=== PATIENT | male | born 1950 | race Two or more races ===

== ENCOUNTER 2020-05-14 11:05 | Outpatient (RCR) | payer MEDICARE, SELFPAY ==
[2020-05-14 11:17] VITALS: BP 151/64; PULSE 71; RESP 16
== END 2020-07-03 10:50 | disposition other institution (70) ==
LOC: HO.PT 11:05
PROVIDERS: PCP Internal Medicine Geriatric Medicine; Visit Provider Internal Medicine Geriatric Medicine
DX: H81.399 Other peripheral vertigo, unspecified ear (principal)
CPT/HCPCS: 95992; 97112; 97162

== ENCOUNTER 2020-08-27 08:33 | Outpatient (REF) | payer MEDICARE, SELFPAY ==
--- NOTE | 2020-08-27 09:25 | XR_ITS ---
EXAMINATION: XR KNEE, LEFT CLINICAL INFORMATION: Pain COMPARISON: Previous x-ray most recent November 2016 TECHNIQUE: 3 views of the left knee. AP view includes the right knee FINDINGS: Left: There is varus angulation at the knee joint. No fracture or dislocation is seen. There is arthritis at the patellofemoral and patellofemoral joints with joint space narrowing and osteophyte formation. There is a small joint effusion. There is a right knee replacement. There is cortical thickening of the medial tibial metaphysis questionable for changes from old trauma. This is unchanged from previous right knee x-ray November 2016. XR/XR knee LT 2V IMPRESSION: Varus angulation and degenerative changes
== END 2020-08-27 08:34 | disposition home or self-care (01) ==
LOC: HO.HOSX 08:33
PROVIDERS: Visit Provider Orthopaedic Surgery
DX: Z01.812 Encounter for preprocedural laboratory examination (principal); M25.562 Pain in left knee; M17.12 Unilateral primary osteoarthritis, left knee; E11.9 Type 2 diabetes mellitus without complications
CPT/HCPCS: 73560; 99202

== ENCOUNTER 2020-08-27 10:44 | Outpatient (REF) | payer MEDICARE, SELFPAY ==
[2020-08-27 15:35] LABS: Estimated Average Glucose 180 mg/dL; Hemoglobin A1c % 7.9 %
== END 2020-08-27 10:45 | disposition home or self-care (01) ==
LOC: HO.10HDL 10:44
PROVIDERS: Visit Provider Orthopaedic Surgery
DX: Z01.812 Encounter for preprocedural laboratory examination (principal)
CPT/HCPCS: 36415; 83036

== ENCOUNTER 2021-12-05 15:24 | Outpatient (REF) | payer MEDICARE, SELFPAY ==
--- NOTE | ~2021-12-05 | MR_ITS ---
MR BRAIN WITHOUT AND WITH CONTRAST CLINICAL INFORMATION: Hearing loss left ear. COMPARISON: None available. TECHNIQUE: Multiplanar, multisequence MRI of the brain was obtained before and after the intravenous administration of 7.5 mL of Gadavist. FINDINGS: The inner ear structures including the cochlea, vestibules, and semicircular canals exhibit preserved CSF signal intensity with no pathologic enhancement. The vestibular aqueducts are not enlarged. Cranial nerves VII and VIII complexes are normal in morphology. No enhancing CP angle/retrocochlear lesion. There is no pathologic intracranial enhancement. There is global cerebral volume loss, there is moderate chronic microangiopathy, and there is chronic encephalomalacia and gliosis within the inferolateral right frontal lobe. No acute infarct on diffusion-weighted imaging. No intracranial hemorrhage on the gradient series. No hydrocephalus, extra-axial surface collection, or herniation. The midline intracranial structures are normal. Cerebellar tonsils are normally positioned. Craniocervical junction is normal. Osseous marrow signal intensity remains homogeneous. No significant soft tissue abnormality is appreciated. There are retention cysts within the maxillary sinuses bilaterally. MR/MR head/brain wo/w con IMPRESSION: - No retrocochlear pathology. - There is global cerebral volume loss, there is moderate chronic microangiopathy, and there is chronic encephalomalacia and gliosis within the inferolateral right frontal lobe.
[2021-12-05 13:11] LABS: Blood Urea Nitrogen 16 mg/dL (9-16); Estimated Glomerular Filt Rate > 60
== END 2021-12-05 15:25 | disposition home or self-care (01) ==
LOC: HO.MRI 15:24
PROVIDERS: Visit Provider Internal Medicine Geriatric Medicine
DX: D33.3 Benign neoplasm of cranial nerves (principal); R42 Dizziness and giddiness
CPT/HCPCS: 36415; 70553; 82565; 84520; A9585

== ENCOUNTER 2022-04-11 09:04 | Outpatient (REF) | payer OTHER, SELFPAY ==
--- NOTE | ~2022-04-11 | XR_ITS ---
EXAMINATION: XR WRIST, RIGHT CLINICAL INFORMATION: Pain without injury. COMPARISON: Right hand radiographs dated 03/08/2015. TECHNIQUE: PA, lateral, and oblique views of the right wrist. FINDINGS: Bony alignment and mineralization are normal. There is a slight ulnar positive variance. The proximal and distal carpal rows are intact. There is narrowing of the radiocarpal joint. There is mild chondrocalcinosis of the triangular ligament. The soft tissue planes are unremarkable, without gas or foreign body. XR/XR wrist RT min 3V IMPRESSION: 1. There is degenerative change of the radiocarpal joint. 2. There is mild chondrocalcinosis of the triangular ligament, raising the possibility of CPPD.
== END 2022-04-11 09:05 | disposition home or self-care (01) ==
LOC: HO.XRAY 09:04
PROVIDERS: PCP Internal Medicine Geriatric Medicine; Visit Provider Emergency Medicine
DX: M25.531 Pain in right wrist (principal)
CPT/HCPCS: 73110

== ENCOUNTER 2022-11-14 09:30 | Outpatient (REF) | payer OTHER, SELFPAY ==
--- NOTE | ~2022-11-14 | XR_ITS ---
EXAMINATION: XR CHEST XR RIBS, LEFT CLINICAL INFORMATION: Chest pain COMPARISON: Chest radiographs 09/11/2017, 03/27/2011 TECHNIQUE: Chest is imaged in PA and lateral views. Left ribs are imaged in 3 views. There are a total of 5 views. FINDINGS: No visible left rib fracture or rib destructive process. The lungs are clear. There is no pneumothorax, airspace consolidation, groundglass opacity, pleural reaction. The costophrenic sulci are well-defined. No effusion. The cardiopericardial silhouette is upper limits of normal, similar to previous exam. The hilar and mediastinal contours and remainder of bony structures show no acute abnormality. XR/XR ribs LT 2V IMPRESSION: - No visible left rib fracture or rib destructive process. - Lungs clear. No pneumothorax, infiltrate, or effusion.
--- NOTE | ~2022-11-14 | XR_ITS ---
EXAMINATION: XR CHEST XR RIBS, LEFT CLINICAL INFORMATION: Chest pain COMPARISON: Chest radiographs 09/11/2017, 03/27/2011 TECHNIQUE: Chest is imaged in PA and lateral views. Left ribs are imaged in 3 views. There are a total of 5 views. FINDINGS: No visible left rib fracture or rib destructive process. The lungs are clear. There is no pneumothorax, airspace consolidation, groundglass opacity, pleural reaction. The costophrenic sulci are well-defined. No effusion. The cardiopericardial silhouette is upper limits of normal, similar to previous exam. The hilar and mediastinal contours and remainder of bony structures show no acute abnormality. XR/XR chest 2V IMPRESSION: - No visible left rib fracture or rib destructive process. - Lungs clear. No pneumothorax, infiltrate, or effusion.
== END 2022-11-14 09:31 | disposition home or self-care (01) ==
LOC: HO.XRAY 09:30
PROVIDERS: PCP Internal Medicine Geriatric Medicine; Visit Provider Emergency Medicine
DX: R07.9 Chest pain, unspecified (principal)
CPT/HCPCS: 71046; 71100

== ENCOUNTER 2023-04-10 14:00 | Outpatient (AMB) | payer OTHER, SELFPAY ==
[2023-04-10 14:02] VITALS: BP 126/68; PULSE 90; O2SAT 97; BMI 26.0
--- NOTE | 2023-04-10 14:02 | A.OFFPC_ITS ---
Vital Signs 04/10/23 14:02 Height 5 ft 5 in Weight 156 lb BMI 26.0 BP 126/68 Blood Pressure Location Lt brachial Position Sitting Pulse 90 Pulse Source Pulse Oximeter Temp Source Skin Pulse Oximetry (%) 97 Oxygen Delivery Method Room Air Intake Visit Reasons: New patient-Diabetes Public Events Facilities Rental Manager Required: Yes Public Events Facilities Rental Manager Language: Turkish Allergies No Known Allergies [No Known Allergies*] Allergy (Verified 04/10/23 15:21) Medication List - Last Reconciled 04/10/23 by JENNIFER Pastrana aspirin 81 mg PO BEDTIME blood pressure test kit-large As directed bupropion HCl 150 mg PO QAM calcium carbonate-vitamin D3 600 mg-5 mcg (200 unit) 0 tabs PO citalopram 20 mg PO QAM empagliflozin (Jardiance) 25 mg PO QAM insulin glargine (Lantus Solostar U-100 Insulin) 10 units subcut BEDTIME lancets As directed lisinopril 10 mg PO QAM metformin 1,000 mg PO BID pravastatin 40 mg PO BEDTIME tamsulosin 0.4 mg PO QAM Tobacco use date assessed: 04/10/23 Last assessed Fall Risk: 04/10/23 Dental Screening Dental Screen Date: 04/10/23 Did you have a dental visit in the last 12 months?: No Did you have a dental problem in the last 6 months where you did not have access to dental care?: No HPI New patient-Diabetes HPI Details Patient is a 72-year-old male who presents today to establish care. Previous PCP [facility]. Medical history significant for hypertension, diabetes, anxiety, depression, hyperlipidemia, arthritis of left knee, and decreased hearing of both ears - patient would like referral to ENT provider. Patient also reports penile rash and he requested refill on clotrimazole-betamethasone cream which helps him. In addition, patient reports shortness of breath on exertion, no chest pain. Patient also reports that he has been snoring at night and stops breathing when he sleeps. Patient quit smoking 51 years ago. Patient is accompanied by his . Patient is a Turkish -speaking and Luis Armando was helping with interpretation. [facility] Medical History (Updated 04/29/23 @ 08:52 by JENNIFER Pastrana) History of nicotine dependence Diabetes Hypertension Surgical History History of arthroplasty of right knee Family History Mother Brain cancer Father Diabetes Social History Alcohol intake: former Patient Tobacco Use Status: Never used Tobacco Current occupational status: unemployed Current occupation: right handed Cognitive needs: No Hearing needs: No Vision needs: No Questionnaire PHQ-9 Over the last 2 weeks, how often have you been bothered by any of the following problems? 1. Little interest or pleasure in doing things: not at all 2. Feeling down, depressed, or hopeless: not at all 3. Trouble falling or staying asleep, or sleeping too much: not at all 4. Feeling tired or having little energy: not at all 5. Poor appetite or overeating: not at all 6. Feeling bad about yourself - or that you are a failure or have let yourself or your family down: not at all 7. Trouble concentrating on things, such as reading the newspaper or watching television: not at all 8. Moving or speaking so slowly that other people could have noticed. Or the opposite - being so fidgety or restless that you have been moving around a lot more than usual: not at all 9. Thoughts that you would be better off or of hurting yourself in some way: not at all Total score: 0 Depression Screening Interpretation: Negative [id number] - PHQ-9 Billing: Yes Source: Developed by Drs. Raul Sanderson, Katerina Cazares, Ok Morris and colleagues, with an educational marleni from [employer]. Thrive Questionnaire Date Thrive assessed: 04/10/23 I am a: Patient What is your living situation today?: I have a steady place to live Within the past 12 months, did the food you bought not last and you didn't have the money to get more?: Never true Within the past 12 months, did you worry whether your food would run out before you got money to buy more?: Never true Currently or been in a relationship where the following occur: no concerns reported AUDIT C Alcohol Use Questionnaire (AUDIT-C) 1. How often do you have a drink containing alcohol?: Never 2. How many drinks containing alcohol do you have on a typical day when you are drinking?: 1 or 2 (0) 3. How often do you have six or more drinks on one occasion?: Never Total Score: 0 Score Reviewed/Action Taken: No ZARI-7 AMB Questionnaire ZARI-7 Date ZARI - 7 assessed: 04/10/23 Feeling nervous, anxious, or on edge: 0 = Not at all Not being able to stop or control worryin = Not at all Worrying too much about different things: 0 = Not at all Trouble relaxin = Not at all Being so restless that it is hard to sit still: 0 = Not at all Becoming easily annoyed or irritable: 0 = Not at all Feeling afraid as if something awful might happen: 0 = Not at all Total ZARI-7 score (0-4 normal; 5-9 mild; 10-14 moderate; 15-21 severe): 0 Source: Developed by Drs. Raul Sanderson, Katerina Cazares, Ok Morris and colleagues, with an educational marleni from [employer]. ZARI-7 Assessment Billing ZARI-7 Assessment Tool: ZARI-7 Assessment 64431 Review of Systems Const Denies body aches, Denies chills, Denies fever(s), Denies headache(s) and Reports snoring Eyes Denies change in vision ENT Denies dizziness, Denies otalgia, Denies headache(s), Denies nasal discharge, Denies sinus pain and Denies sore throat Card Denies chest pain, Denies edema, Denies lightheadedness, Denies dyspnea and Reports dyspnea on exertion Resp Denies cough, Denies dyspnea, Reports dyspnea on exertion, Reports snoring and Denies wheezing GI Denies constipation, Denies diarrhea, Denies nausea and Denies vomiting Denies dysuria Musc Denies myalgias Skin/Breast Reports rash Neuro Denies dizziness and Denies headache(s) Aller/Immun Denies wheezing Physical exam (Primary Care) Vital Signs: Last Vital Signs Pulse 90 04/10/23 14:02 BP 126/68 04/10/23 14:02 Pulse Ox 97 04/10/23 14:02 Oxygen Delivery Method Room Air 04/10/23 14:02 BMI result Body Mass Index 26.0 Tobacco/Smoking Status: Tobacco use Status Tobacco use date assessed 04/10/23 04/10/23 14:03 Patient Tobacco Use Status Never used Tobacco 04/10/23 15:11 PHQ-9: PHQ-9 Score PHQ-9: Total score 0 04/10/23 15:22 Depression Screening Interpretation: Negative Thrive Assessment: Date of Thrive Assessment Date Thrive assessed 04/10/23 04/10/23 14:03 Currently or been in a relationship where the following occur: no concerns reported Const General: cooperative and no acute distress Orientation/consciousness: patient oriented x3 HENMT Head: Yes normocephalic and Yes atraumatic Ears: TM's normal bilaterally Face and sinus: Yes sinuses nontender Mouth: oropharynx normal and moist mucous membranes Throat: Yes posterior oropharynx normal Eyes General: appearance normal, both eyes and all related structures Pupils: Equal, round and reactive pupils present EOM: EOMs intact bilaterally Neck Neck: Yes normal visual inspection, Yes full ROM and Yes no lymphadenopathy Thyroid: Thyroid normal Resp Effort & Inspection: normal respiratory effort and able to speak in complete sentences Auscultation: clear to auscultation bilaterally, no crackles, no rales, no rhonchi and no wheezes Cardio Rate: regular rate Rhythm: regular rhythm Heart sounds: S1 normal heart sound present, S2 normal heart sound present and no murmurs GI Palpation (GI): Soft to palpation, not firm, nontender, no guarding, not rigid and no hepatosplenomegaly Auscultation: normal bowel sounds General: No CVA tenderness Back/Spine/Pelvis Back: No CVA tenderness 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 Penile glans with mild erythema, no signs of infection noted Neuro General: patient oriented x3 Cranial nerves: Yes Equal, round and reactive pupils present Gait exam (Neuro): Normal gait present Extrem General: Yes full ROM and No edema Results AMB Hemoglobin A1c AMB Hemoglobin A1c 7.0 % Last Edit by MEHDI Veloz on 04/10/23 15:12 Results Reviewed Results Reviewed: Laboratory Last Values Hgb A1c (Clinic) 7.0 % (4.0-6.0) H 04/10/23 14:01 Assessment and Plan Assessment & Plan (1) Decreased hearing of both ears: Code(s): H91.93 - Unspecified hearing loss, bilateral Plan: ENT referral (2) Rash: Code(s): R21 - Rash and other nonspecific skin eruption Plan: Suspect balanitis Refill sent on clotrimazole-betamethasone cream b.i.d. p.r.n. for 2 weeks (3) Shortness of breath on exertion: Code(s): R06.02 - Shortness of breath Plan: Start albuterol inhaler p.r.n. Will order pulmonary function test (4) Apneic spell: Code(s): R06.81 - Apnea, not elsewhere classified Plan: Sleep study ordered to rule out sleep apnea (5) Screening for prostate cancer: Code(s): Z12.5 - Encounter for screening for malignant neoplasm of prostate (6) Hyperlipidemia: Code(s): E78.5 - Hyperlipidemia, unspecified Plan: Continue pravastatin Low-cholesterol diet (7) Depression: Code(s): F32.A - Depression, unspecified Qualifiers: Depression Type: other depression Qualified Code(s): F32.89 - Other specified depressive episodes Plan: Continue bupropion and citalopram (8) Anxiety: Code(s): F41.9 - Anxiety disorder, unspecified Plan: Continue bupropion and citalopram (9) Diabetes: Code(s): E11.9 - Type 2 diabetes mellitus without complications Plan: A1c 7.0 today, goal less than 7 Continue Jardiance, Lantus, metformin Low-carbohydrate diet Patient has an upcoming appointment for diabetic eye exam with Dr. Schofield (10) Hypertension: Code(s): I10 - Essential (primary) hypertension Plan: Goal BP equal less than 140/90 Continue lisinopril Low-sodium diet (11) Encounter to establish care: Code(s): Z76.89 - Persons encountering health services in other specified circumstances Orders: Orders Vitamin D 25-OH Total 04/10/23 E11.9 - Type 2 diabetes mellitus without complications Vitamin B12 and Folate 04/10/23 E11.9 - Type 2 diabetes mellitus without complications Comprehensive [place]. Panel Fast 04/10/23 E11.9 - Type 2 diabetes mellitus without complications Complete Blood Count Auto Diff 04/10/23 E11.9 - Type 2 diabetes mellitus without complications Prostate Specific Antigen 04/10/23 Z12.5 - Encounter for screening for malignant neoplasm of prostate RT home sleep study 04/10/23 R06.81 - Apnea, not elsewhere classified PFT pulmonary function test 04/10/23 R06.02 - Shortness of breath AMB Hemoglobin A1c 04/10/23 Z13.9 - Encounter for screening, unspecified TSH reflex Free T4 04/10/23 E11.9 - Type 2 diabetes mellitus without complications Lipid Panel 04/10/23 E78.5 - Hyperlipidemia, unspecified Microalbumin, Random (w Creat) 04/10/23 E11.9 - Type 2 diabetes mellitus without complications Referrals Ear/Nose/Throat Referral H91.93 - Unspecified hearing loss, bilateral Medications: New albuterol sulfate 90 mcg/actuation (Ventolin HFA) 2 puffs inhalation Q4-6H PRN 8.5 grams 0RF shortness of breath or wheezing R06.02 - Shortness of breath clotrimazole-betamethasone 1-0.05 % 1 appl topical BID PRN 45 grams 0RF rash 2 weeks R21 - Rash and other nonspecific skin eruption Coding Level of Care Code New Pt Level 4 (37396) Diagnoses Decreased hearing of both ears H91.93 Rash R21 Shortness of breath on exertion R06.02 Apneic spell R06.81 Screening for prostate cancer Z12.5 Hyperlipidemia E78.5 Other depression F32.89 Depression Type: other depression Anxiety F41.9 Diabetes E11.9 Hypertension I10 Encounter to establish care Z76.89 Additional Codes ZARI-7 Assessment Billing - ZARI-7 Assessment Tool: ZARI-7 Assessment [id number] ([id number])
== END 2023-04-10 15:57 | disposition home or self-care (01) ==
PROVIDERS: PCP Internal Medicine; Visit Provider Nurse Practitioner Family
DX: E11.9 Type 2 diabetes mellitus without complications (principal); H91.93 Unspecified hearing loss, bilateral; R21 Rash and other nonspecific skin eruption; R06.02 Shortness of breath; R06.81 Apnea, not elsewhere classified; E78.5 Hyperlipidemia, unspecified; F32.89 Other specified depressive episodes; F41.9 Anxiety disorder, unspecified; I10 Essential (primary) hypertension; Z76.89 Persons encountering health services in other specified circumstances
CPT/HCPCS: 83036; 99204

== ENCOUNTER 2023-06-01 11:42 | Outpatient (AMB) | payer OTHER, SELFPAY ==
[2023-06-01 12:54] VITALS: BP 90/62; PULSE 68; BMI 26.7
--- NOTE | 2023-06-01 12:54 | MHC.OFFVIS ---
Intake Vital Signs 06/01/23 12:54 Height 5 ft 5 in Weight 160 lb 7.944 oz BMI 26.7 BP 90/62 Blood Pressure Location Lt brachial Position Sitting Pulse 68 Intake Visit Reasons: NPV/Chest Pain/[facility] Intake Note: NPV w/ EKG Activities Concierge Required: Yes Activities Concierge Language: Passenger Screener Name: Azael [id number] Accompanied by: Spouse Allergies No Known Allergies [No Known Allergies*] Allergy (Verified 06/01/23 12:56) Medication List - Last Reconciled 06/01/23 by Izaiah Dela Cruz MD albuterol sulfate 90 mcg/actuation (Ventolin HFA) 2 puffs inhalation Q4-6H PRN aspirin 81 mg PO BEDTIME blood pressure test kit-large As directed bupropion HCl 150 mg PO QAM calcium carbonate-vitamin D3 600 mg-5 mcg (200 unit) 0 tabs PO citalopram 20 mg PO QAM clotrimazole-betamethasone 1-0.05 % 1 appl topical BID PRN 2 weeks empagliflozin (Jardiance) 25 mg PO QAM insulin glargine (Lantus Solostar U-100 Insulin) 10 units subcut BEDTIME lancets As directed lisinopril 10 mg PO QAM metformin 1,000 mg PO BID pravastatin 40 mg PO BEDTIME tamsulosin 0.4 mg PO QAM HPI HPI Comments History of Present Illness Details Patient has been referred for evaluation of chest pain. Evaluated patient using supervisor blast furnace auxiliaries. [facility] over to [place] [facility]. His origin PCP had sent a referral for chest pain. When I questioned the patient however, he states he has got absolutely no chest pain. Repeatedly asked him using supervisor blast furnace auxiliaries but he still denies any chest pain or similar symptoms. He is not sure why he got referred. [facility] Medical History (Updated 06/01/23 @ 13:22 by Izaiah Dela Cruz MD) History of nicotine dependence Diabetes Hypertension Surgical History History of arthroplasty of right knee Family History Mother Brain cancer Father Diabetes Social History Alcohol intake: former Patient Tobacco Use Status: Never used Tobacco Current occupational status: unemployed Current occupation: right handed Cognitive needs: No Hearing needs: No Vision needs: No Review of Systems Const Denies weakness Eyes Denies loss of vision ENT Denies dizziness Card Denies chest pain, Denies chest pain with activity, Denies syncope, Denies rapid heart rate, Denies pedal edema, Denies edema, Denies leg edema, Denies lightheadedness, Denies palpitations, Denies dyspnea, Denies dyspnea on exertion and Denies orthopnea Resp Denies cough, Denies dyspnea, Denies dyspnea on exertion and Denies wheezing GI Denies hematochezia and Denies change in stool character Denies hematuria, Denies dysuria and Denies urinary frequency Musc Denies abnormal gait, Denies muscle cramps, Denies muscle weakness, Denies numbness, Denies radiating pain into limb and Denies tingling Skin/Breast Denies nail changes and Denies rash Neuro Denies Abnormal speech present, Denies abnormal gait, Denies dizziness, Denies syncope, Denies loss of vision, Denies memory loss, Denies numbness, Denies tingling and Denies weakness Psych Denies depression and Denies memory loss Endo Denies palpitations Aller/Immun Denies wheezing Physical Exam Vital Signs: Last Vital Signs Pulse 68 06/01/23 12:54 BP 90/62 06/01/23 12:54 BMI result Body Mass Index 26.7 Const General: comfortable and no acute distress Orientation/consciousness: patient oriented x3 HEENT Other: Unremarkable Head: Yes normal to inspection Neck Neck: Yes normal visual inspection Chest Chest palpation & inspection: normal inspection of the chest Resp Auscultation: clear to auscultation bilaterally Cardio Palpation: normal PMI Heart sounds: S1 normal heart sound present, S2 normal heart sound present, no gallops, no murmurs and no rubs GI Palpation (GI): Soft to palpation Back/Spine/Pelvis Other: unremarkable Skin General skin exam: no rashes or lesions noted Neuro General: patient oriented x3 Speech: No Abnormal speech present Extrem General: Yes normal to inspection Psych Mental Status: mental status grossly normal Office Procedures EKG Details: EKG with sinus rhythm at 68/Min; no significant ST-T changes and otherwise [place]remarkable[place] [id number], Complete Assessment & Plan Assessment & Plan (1) Precordial chest pain: Code(s): R07.2 - Precordial pain Plan Patient referred for evaluation of chest pain but on repeated questioning, absolutely denies this. Clinical exam/baseline EKG unremarkable. If any such clinical symptom in the future, then proceed with stress testing. Otherwise, appropriate risk factor modification of diabetes and hypertension. Discussed with significant other as well. Coding Level of Care Code New Pt Level 3 (91646) Diagnoses Precordial chest pain R07.2 CPT Codes EKG - CPT: 95624-[id number], Complete ([id number])
--- NOTE | 2023-07-03 08:34 | AM.OFFVISNUR ---
Intake Vital Signs 06/01/23 12:54 Height 5 ft 5 in Weight 160 lb 7.944 oz BMI 26.7 BP 90/62 Blood Pressure Location Lt brachial Position Sitting Pulse 68 Intake Visit Reasons: NPV/Chest Pain/[facility] Allergies No Known Allergies [No Known Allergies*] Allergy (Verified 06/01/23 12:56) Medication List - Last Reconciled 06/01/23 by Izaiah Dela Cruz MD albuterol sulfate 90 mcg/actuation (Ventolin HFA) 2 puffs inhalation Q4-6H PRN aspirin 81 mg PO BEDTIME blood pressure test kit-large As directed bupropion HCl 150 mg PO QAM calcium carbonate-vitamin D3 600 mg-5 mcg (200 unit) 0 tabs PO citalopram 20 mg PO QAM clotrimazole-betamethasone 1-0.05 % 1 appl topical BID PRN 2 weeks empagliflozin (Jardiance) 25 mg PO QAM insulin glargine (Lantus Solostar U-100 Insulin) 10 units subcut BEDTIME lancets As directed lisinopril 10 mg PO QAM metformin 1,000 mg PO BID pravastatin 40 mg PO BEDTIME tamsulosin 0.4 mg PO QAM Nursing Note spoke to Trish on 07/01. Trish reports that pt isn't able to read, write and is having difficulty understanding how to take his medications. reports that the instructions say 10 units but pt has been giving himself 20-30 units daily. Trish reports pt seems a little confused lately which is a new symptom. reports pt needs a lot of assistance due to pt's intellectual capacity. Trish is looking for VNA services for this pt for diabetes education and medication education. Office Procedures EKG Details: EKG with sinus rhythm at 68/Min; no significant ST-T changes and otherwise unremarkable[place] [id number], Complete Coding Diagnoses Precordial chest pain R07.2 CPT Codes EKG - CPT: 76973-[id number], Complete ([id number]) Assessment & Plan Assessment & Plan (1) Precordial chest pain: Code(s): R07.2 - Precordial pain Category: Medical
== END 2023-06-01 13:17 | disposition home or self-care (01) ==
PROVIDERS: PCP Internal Medicine; Visit Provider Internal Medicine
DX: R07.2 Precordial pain (principal)
CPT/HCPCS: 93010; 99203

== ENCOUNTER → 2023-06-01 11:42 | Outpatient (BNVA) | payer OTHER, SELFPAY | PROVIDERS: PCP Internal Medicine; Visit Provider Internal Medicine | DX: R07.2 Precordial pain (principal) | CPT/HCPCS: 93005; 99202 ==

== ENCOUNTER 2023-06-30 10:58 | Outpatient (REF) | payer OTHER, SELFPAY | END 2023-06-30 10:59 | disposition home or self-care (01) | LOC: HO.RESP 10:58 | PROVIDERS: PCP Nurse Practitioner Family; Visit Provider Nurse Practitioner Family | DX: Z13.89 Encounter for screening for other disorder (principal) ==

== ENCOUNTER 2023-09-16 15:40 | Outpatient (REF) | payer OTHER, SELFPAY | END 2023-09-16 15:41 | disposition home or self-care (01) | LOC: HO.SH 15:40 | PROVIDERS: Visit Provider Internal Medicine Geriatric Medicine | DX: Z01.118 Encounter for examination of ears and hearing with other abnormal findings (principal); H90.3 Sensorineural hearing loss, bilateral | CPT/HCPCS: 92553; 92555; 92567 ==

== ENCOUNTER 2023-11-11 08:04 | Outpatient (REF) | payer OTHER, SELFPAY ==
[2023-11-11 11:36] LABS: MANUAL DIFF FLAG NO
[2023-11-11 11:45] LABS: Basophils Absolute Auto 0.1 X10*3/uL (0.0-0.2); Basophils Percent Auto 0.8 % (0-2); Eosinophils Absolute Auto 1.1 X10*3/uL (0.0-0.4); Eosinophils Percent Auto 15.8 % (0-4); Hematocrit 45.5 % (42.0-52.0); Hemoglobin 14.8 g/dl (14.0-18.0); Imm Gran Abs Auto 0.01 X10*3/uL (0.00-0.03); Imm Gran Pct Auto 0.1 % (0.0-0.4); Lymphocytes Absolute Auto 1.6 X10*3/uL (1.2-4.9); Lymphocytes Percent Auto 21.8 % (20-40); Mean Corpuscular HGB Conc 32.5 g/dl (31.0-36.0); Mean Corpuscular Volume 92.3 fL (80.0-98.0); Mean Platelet Volume 10.8 fL (9.4-12.4); Monocytes Absolute Auto 0.5 X10*3/uL (0.1-1.2); Monocytes Percent Auto 6.9 % (2-11); Neutrophils Absolute Auto 3.9 x10*3/uL (2.0-8.3); Neutrophils Percent Auto 54.6 % (45-73); Platelet Count 268 X10*3/uL (160-400); Red Blood Count 4.93 X10*6/uL (4.60-5.80); Red Cell Distribution Width 14.8 % (11.0-16.0); White Blood Count 7.2 X10*3/uL (4.8-10.8)
[2023-11-11 12:13] LABS: Alanine Aminotransferase 10 U/L (0-40); Albumin Level 4.3 g/dL (3.5-5.0); Alkaline Phosphatase 81 U/L (39-117); Anion Gap 11 (12-20); Aspartate Amino Transferase 14 U/L (5-37); Bilirubin Total 0.3 mg/dL (0.0-1.0); Blood Urea Nitrogen 16 mg/dL (9-16); Calcium 9.2 mg/dL (8.4-10.2); Carbon Dioxide 27 mmol/L (22-29); Chloride 105 mmol/L (96-108); Cholesterol 112 mg/dL (<200); Estimated Glomerular Filt Rate > 60; Glucose Fasting 148 mg/dL (60-99); HDL Cholesterol 37 mg/dL (>40); LDL Cholesterol Calculated 58 mg/dL (<100); Potassium 4.2 mmol/L (3.3-5.1); Sodium 139 mmol/L (135-145); Total Protein 7.1 g/dL (6.5-8.0); Triglycerides 87 mg/dL (<150)
[2023-11-11 12:15] LABS: TSH reflex Free T4 1.53 uIU/mL (0.32-4.0); Vitamin D 25-OH Total 56.2 ng/mL (>30)
[2023-11-11 12:25] LABS: Creatinine Urine 75.91 mg/dL
[2023-11-11 12:31] LABS: Folate 12.5 ng/mL (> or = 4.0); Prostate Specific Antigen 1.18 ng/mL (<0.05-4.0)
[2023-11-11 15:27] LABS: Vitamin B12 235 pg/mL (200-900)
== END 2023-11-11 08:05 | disposition home or self-care (01) ==
LOC: HO.HHCL 08:04
PROVIDERS: Visit Provider Nurse Practitioner Family
DX: Z12.5 Encounter for screening for malignant neoplasm of prostate (principal); E11.9 Type 2 diabetes mellitus without complications; E78.5 Hyperlipidemia, unspecified
CPT/HCPCS: 36415; 80053; 80061; 82043; 82306; 82570; 82607; 82746; 84153; 84443; 85025

== ENCOUNTER 2023-12-14 09:14 | Outpatient (REF) | payer OTHER, SELFPAY ==
--- NOTE | ~2023-12-14 | FL_ITS ---
EXAMINATION: XR FLUOROSCOPY UPPER GI WITH AIR CLINICAL INFORMATION: Dysphagia COMPARISON: None TECHNIQUE: Fluoroscopic air contrast upper GI examination was performed utilizing standard techniques with thin and thick barium and effervescent granules. Numerous spot images were obtained. FINDINGS: Lateral cine images of the oropharynx and hypopharynx demonstrate normal swallow mechanism with normal epiglottic inversion and soft palate elevation. No tracheal penetration, glottic or subglottic aspiration identified. No nasopharyngeal reflux present. Hypopharyngeal structures appear normal without evidence of mass or diverticulum. There is mild cricopharyngeal achalasia present. Dual and single contrast images of the esophagus demonstrate normal caliber and contour. There is a mild granular appearance to the mid and distal esophageal mucosa, which could indicate mild erosive esophagitis. No evidence of stricture, mass, or large ulcerations identified. There is to and fro motion of the barium column with nonpropulsive tertiary contractions noted throughout the esophagus. A small type I hiatal hernia is present. Significant gastroesophageal reflux is seen up to thoracic inlet. Dual contrast and single contrast images of the stomach demonstrated a normal contour. The gastric rugal folds have a mildly thickened appearance. No masses or ulcerations are seen. Contrast freely passed into the gastric antrum and duodenal bulb without delay. Single and air-contrast images of the duodenal bulb demonstrate no abnormality. The duodenal sweep has a normal appearance, course, and mucosal fold appearance. The imaged proximal jejunum has a normal fold pattern and caliber. FLUOROSCOPY TIME: 3 minutes 44 seconds Number of Spot Images: 7 Number of Cine: 15 DOSE AREA PRODUCT: 2500 uGy-m2 (microgray-meter squared) FL/FL barium swallow IMPRESSION: 1. Mild cricopharyngeal achalasia. 2. Esophageal dysmotility. Possible mild erosive esophagitis. 3. Small type I hiatal hernia. 4. Severe gastroesophageal reflux. 5. Mildly thickened gastric rugal folds that likely suggest gastritis. This procedure was performed by Deandre Zuniga PA-C, and supervised by Dr. Zabala
== END 2023-12-14 09:15 | disposition home or self-care (01) ==
LOC: HO.XRAY 09:14
PROVIDERS: PCP Internal Medicine; Visit Provider Student in an Organized Health Care Education/Training Program
DX: R13.19 Other dysphagia (principal)
CPT/HCPCS: 74220

== ENCOUNTER → 2023-12-14 09:18 | Outpatient (BNV) | payer OTHER, SELFPAY | PROVIDERS: PCP Internal Medicine; Visit Provider Physician Assistant Surgical | DX: R13.10 Dysphagia, unspecified (principal) | CPT/HCPCS: 74246 ==

== ENCOUNTER 2024-02-23 11:54 | Emergency (ER) | payer OTHER, SELFPAY ==
--- NOTE | ~2024-02-23 | XR_ITS ---
EXAMINATION: XR LUMBOSACRAL SPINE CLINICAL INFORMATION: Lower back pain COMPARISON: None available. TECHNIQUE: Three views of the lumbosacral spine. FINDINGS: The visualized lumbar vertebrae are intact with normal alignment. Bilateral 12th ribs are rudimentary. There is sacralization of L5, with associated loss of L5-S1 disc space. Intervertebral disc spaces are otherwise normal. XR/XR lumbar spine 2-3V IMPRESSION: 1. Rudimentary 12th ribs and sacralization of L5. 2. No fracture or dislocation of lumbar spine is seen.
[2024-02-23 12:50] VITALS: BP 148/73; PULSE 67; RESP 16; TEMP 36.8; O2SAT 97; BMI 30.2
--- NOTE | 2024-02-23 12:50 | ED_ITS ---
HPI - Back Pain/Injury General Chief Complaint: Back Pain/Injury Stated Complaint: lower back pain and waist Time Seen by Provider: 02/23/24 15:39 Source: patient and RN notes reviewed Mode of arrival: ambulatory Limitations: no limitations History of Present Illness ED Provider: Yuli Alfaro PA-C HPI Narrative: This is a 48-vhdc-smo-male who presents o the ER with complaints of right sided back pain x 2 weeks. He denies any recent trauma or injury to his back. He states that the pain is an aching pain that is constant and radiates down his right leg. He denies any urinary or bowel retention or incontinence. No saddle anesthesia. No fevers, chills, chest pain, SOB, abdominal pain, nausea, vomiting or diarrhea. Denies any other complaints or concerns at this time. MD elicited complaint: back pain Onset (ago): week(s) Timing: constant Similar Symptoms Previously: No Quality: aching Location: right lower back Radiation: right upper leg Exacerbating factors: movement Relieving factors: immobilization Associated symptoms: denies other symptoms Work related injury: No Related Data Home Medications ?Medication ?Instructions ?Recorded ?Confirmed aspirin 81 mg tablet,delayed 81 mg PO BEDTIME 08/27/20 06/01/23 release blood pressure test kit-large #1 ea 08/27/20 06/01/23 calcium carbonate 600 mg-vitamin 0 tab PO 08/27/20 06/01/23 D3 5 mcg (200 unit) tablet citalopram 20 mg tablet 20 mg PO QAM 08/27/20 06/01/23 lancets 33 gauge #100 ea 08/27/20 06/01/23 lisinopril 10 mg tablet 10 mg PO QAM 08/27/20 06/01/23 pravastatin 40 mg tablet 40 mg PO BEDTIME 08/27/20 06/01/23 bupropion HCl 150 mg 24 hr tablet, 150 mg PO QAM 04/10/23 06/01/23 extended release empagliflozin 25 mg tablet 25 mg PO QAM 04/10/23 06/01/23 (Jardiance) tamsulosin 0.4 mg capsule 0.4 mg PO QAM 04/10/23 06/01/23 insulin glargine 100 unit/mL (3 30 unit subcut BEDTIME 07/01/23 mL) subcutaneous pen (Lantus Solostar U-100 Insulin) Previous Rx's ?Medication ?Instructions ?Recorded albuterol sulfate 90 mcg/actuation 2 puff inhalation Q4-6H PRN 04/10/23 aerosol inhaler (Ventolin HFA) shortness of breath or wheezing #8.5 grams clotrimazole-betamethasone 1 1 appl topical BID PRN rash 2 09/27/23 %-0.05 % topical cream weeks #45 grams metformin 1,000 mg tablet 1,000 mg PO BID 90 days #180 tabs 01/30/24 free style lite meter #1 ea 02/05/24 free style lite sensor #1 ea 02/05/24 acetaminophen 325 mg capsule 650 mg (2 x 325 mg) PO Q6H PRN 02/23/24 pain #30 caps lidocaine 5 % topical patch 1 patch topical DAILY #30 ea 02/26/24 (Lidoderm) Allergies Allergy/AdvReac Type Severity Reaction Status Date / Time No Known Allergies Allergy Verified 02/23/24 12:52 [No Known Allergies*] Review of Systems Review of Systems: Yes all other systems are reviewed and are negative Constitutional: Constitutional: Reports as per [facility] Past Medical History Medical History (Updated 02/24/24 @ 00:00 by Gee Sifuentes) History of nicotine dependence Diabetes Hypertension Surgical History History of arthroplasty of right knee Family History Family History Mother Brain cancer Father Diabetes Social History Social History Alcohol intake: former Patient Tobacco Use Status: Never used Tobacco Advance Directives: No Advance Directives Information Provided: No Current occupational status: unemployed Current occupation: right handed Cognitive needs: No Hearing needs: No Vision needs: No Physical Exam Vital Signs: Vital Signs: Last Vital Signs Temp 98.6 F 02/23/24 17:17 Pulse 67 02/23/24 17:17 Resp 18 02/23/24 17:17 BP 148/73 H 02/23/24 17:17 Pulse Ox 98 02/23/24 17:17 O2 Del Method Room Air 02/23/24 17:17 BMI result Body Mass Index 30.2 Const: General: cooperative, comfortable and no acute distress Orientation/consciousness: patient oriented x3 Limitations: no limitations HEENT: Head: Yes normal to inspection, Yes normocephalic and Yes atraumatic Ears: hearing grossly normal bilaterally General nose exam: Normal external nose present Face and sinus: Yes normal facial exam Mouth: Normal oral and palatal mucosa present, oropharynx normal and moist mucous membranes Throat: Yes posterior oropharynx normal Eyes: General: appearance normal, both eyes and all related structures Eyelids: Yes eyelids normal Conjunctivae: conjunctivae normal Sclerae: sclerae normal Pupils: Equal, round and reactive pupils present EOM: EOMs intact bilaterally Neck: Neck: Yes normal visual inspection, Yes full ROM and Yes no lymphadenopathy Lymphatic: no lymphadenopathy noted Chest: Chest palpation & inspection: normal inspection of the chest Resp: Effort & Inspection: normal respiratory effort and able to speak in complete sentences Auscultation: clear to auscultation bilaterally, no crackles, no rales, no rhonchi and no wheezes Cardio: Rate: regular rate Rhythm: regular rhythm Heart sounds: S1 normal heart sound present and S2 normal heart sound present GI: Inspection: Yes normal to inspection Back/Spine/Pelvis: Other: TTP overlying the right low back. strength 5/5 in LE bilaterally. Distal sensation and circulation intact Skin: General skin exam: no rashes or lesions noted Trauma: no lacerations or abrasions Wounds: no wounds Neuro: General: patient oriented x3 and moves all extremities Cranial nerves: Yes Equal, round and reactive pupils present Extrem: General: Yes normal to inspection Right upper extremity: normal to inspection Left upper extremity: normal to inspection Right lower extremity: normal to inspection Left lower extremity: normal to inspection Course Course Course Narrative: This is a Rapid Medical Examination (RME) performed by Natasha Lee PA-C in triage. Full HPI, ROS, assessment and treatment plan per primary provider in the Main ED. 73 year old male presents to the ER today with lower back pain that radiates down the right leg that moves to the left leg. Pain has been present for 2 weeks without any injury or trauma. Ambulating in triage and in no acute distress. Using a cane. No incontinence or difficulty urinating. Has taken Tylenol and Advil for the pain and helped minimally. [place] [facility] [place] Plan: XR of lumbar back Medications Administered Discontinued Medications Generic Name Dose Route Start Last Admin Trade Name Freq PRN Reason Stop Dose Admin Acetaminophen 650 mg 02/23/24 16:58 02/23/24 17:07 Acetaminophen 325 Mg Tablet PO 02/23/24 16:59 650 mg ONCE ONE Administration Medical Decision Making Medical Decision Making [facility] Narrative: This is a 73 y/o M who presents to the ER with complaints of right sided back pain x 2 weeks. On arrival, pt is ambulatory with steady gait. He has TTP overlying r low back, no midline spine ttp. This patient presents with back pain most consistent with lumbar radiculopathy. Differential diagnoses includes lumbago versus musculoskeletal spasm / strain versus sciatica. No back pain red flags on history or physical. Presentation not consistent with malignancy (lack of history of malignancy, lack of B symptoms), fracture (no trauma, no bony tenderness to palpation), cauda equina syndrome (no bowel or urinary incontinence/retention, no saddle anesthesia, no distal weakness), pulmonary embolism, renal colic, pyelonephritis (afebrile, no CVAT, no urinary symptoms). Xrays were obtained revealing no acute abnormalities. discussed with pt, d/c with return precautions Differential Diagnosis Differential Diagnoses: The differential diagnosis associated with the presentation includes see above Radiology Impression Discussion of test interpretation with radiology: I have reviewed the radiologist's reading. Radiologist Impression: XR/XR lumbar spine 2-3V IMPRESSION: 1. Rudimentary 12th ribs and sacralization of L5. 2. No fracture or dislocation of lumbar spine is seen. Dictated By: Duc Parada Discharge Plan Discharge Clinical Impression: Lumbar radiculopathy Patient Disposition: Home, Self-Care Instructions: Lumbar Radiculopathy (ED), Back Pain (ED), Lower Back Exercises (ED) Additional Instructions: You were seen in the emergency department due to right-sided back pain. You have something called lumbar radiculopathy/sciatica. Please take prescribed Tylenol as directed. You need follow-up with your primary care physician as you may need a referral to physical therapy. If any new or worsening symptoms occur including but not limited to chest pain, shortness breath, numbness or tingling into your groin, loss of bladder or bowel control, please return for re-evaluation. Prescriptions: New acetaminophen 325 mg capsule 650 mg PO Q6H PRN (Reason: pain) Qty: 30 0RF No Action Lantus Solostar U-100 Insulin 100 unit/mL (3 mL) insulin pen 30 unit subcut BEDTIME clotrimazole-betamethasone 1-0.05 % cream 1 appl topical BID PRN (Reason: rash) 14 Days Qty: 45 0RF metformin 1,000 mg tablet 1,000 mg PO BID 90 Days Qty: 180 1RF (DME) free style lite sensor See Rx Instructions .Route .MEDSUPPLY Qty: 1 3RF Rx Instructions: As directed (DME) free style lite meter See Rx Instructions .Route .MEDSUPPLY Qty: 1 0RF Rx Instructions: As directed lidocaine [Lidoderm] 5 % adhesive patch,medicated 1 patch topical DAILY Qty: 30 0RF Rx Instructions: leave on most painful area for up to 12 hrs bupropion HCl 150 mg tablet extended release 24 hr 150 mg PO QAM Jardiance 25 mg tablet 25 mg PO QAM tamsulosin 0.4 mg capsule 0.4 mg PO QAM albuterol sulfate [Ventolin HFA] 90 mcg/actuation HFA aerosol inhaler 2 puff inhalation Q4-6H PRN (Reason: shortness of breath or wheezing) Qty: 8.5 0RF (DME) blood pressure test kit-large Kit See Rx Instructions .ROUTE .MEDSUPPLY Qty: 1 Rx Instructions: As directed (DME) lancets 33 gauge misc See Rx Instructions .ROUTE .MEDSUPPLY Qty: 100 Rx Instructions: As directed pravastatin 40 mg tablet 40 mg PO BEDTIME aspirin 81 mg tablet,delayed release (DR/EC) 81 mg PO BEDTIME calcium carbonate-vitamin D3 600 mg(1,500mg) -200 unit tablet 0 tab PO citalopram 20 mg tablet 20 mg PO QAM lisinopril 10 mg tablet 10 mg PO QAM Interventions: ED Discharge Assessment Last Done: 02/23/24 17:17 Discharge Date/Time: 02/23/24 17:17 Print Language: Kyrgyz
[2024-02-23] MEDS: Acetaminophen 325 MG TABLET 650 MG PO (17:07)
[2024-02-23 17:17] VITALS: BP 148/73; PULSE 67; RESP 18; TEMP 37; O2SAT 98
== END 2024-02-23 17:17 | disposition home or self-care (01) ==
PROVIDERS: Emergency Provider Emergency Medicine
DX: M54.16 Radiculopathy, lumbar region (principal); M54.50 Low back pain, unspecified; E11.8 Type 2 diabetes mellitus with unspecified complications; I10 Essential (primary) hypertension; E78.5 Hyperlipidemia, unspecified; Z79.4 Long term (current) use of insulin; Z79.84 Long term (current) use of oral hypoglycemic drugs; Z79.899 Other long term (current) drug therapy; Z79.82 Long term (current) use of aspirin; Z79.02 Long term (current) use of antithrombotics/antiplatelets
CPT/HCPCS: 72100; 99283

== ENCOUNTER 2024-03-09 13:16 | Outpatient (AMB) | payer OTHER, SELFPAY ==
--- NOTE | 2024-03-09 13:24 | MHC.PC.OV ---
Vital Signs 03/09/24 13:32 Height 5 ft Weight 153 lb BMI 29.9 BP 112/72 Blood Pressure Location Lt brachial Position Sitting Intake Visit Reasons: follow up [employer] Required: No Accompanied by: Spouse Allergies No Known Allergies [No Known Allergies*] Allergy (Verified 03/09/24 13:42) Medication List - Last Reconciled 03/09/24 by Carolina Gibson MD acetaminophen 650 mg (2 x 325 mg) PO Q6H PRN aspirin 81 mg PO BEDTIME blood pressure test kit-large As directed bupropion HCl XL 150 mg PO QAM 90 days calcium carbonate-vitamin D3 600 mg-5 mcg (200 unit) 0 tabs PO clotrimazole-betamethasone 1-0.05 % 1 appl topical BID PRN 2 weeks empagliflozin (Jardiance) 25 mg PO QAM [free style lite meter As directed] [free style lite sensor As directed] insulin glargine (Lantus Solostar U-100 Insulin) 30 units subcut BEDTIME lancets As directed lisinopril 10 mg PO QAM metformin 1,000 mg PO BID 90 days multivitamin 1 tab PO QAM pravastatin 40 mg PO BEDTIME tamsulosin 0.4 mg PO QAM Tobacco use date assessed: 03/09/24 Fall risk assessment: No Falls in past year Last assessed Fall Risk: 03/09/24 Dental Screening Dental Screen Date: 03/09/24 Did you have a dental visit in the last 12 months?: Yes Did you have a dental problem in the last 6 months where you did not have access to dental care?: No Was dental information given to patient?: Patient has dentist HPI HPI Comments History of Present Illness Details This is a 73-year-old male with diabetes mellitus type 2 with hyperglycemia with long-term current use of insulin, hypertension and mild major depression that comes today accompanied by to establish care. A1c elevated and I will increase insulin. Blood pressure stable. Depression well controlled with bupropion. Complains of right hip pain that started about 2 weeks ago. Walks with a cane for gait stability. He is a former smoker and ultrasound of the abdomen will be ordered to rule out abdominal aortic aneurysm. He did had a barium swallow showing achalasia and severe GERD and will be refer to Gastroenterology for that matter. [facility] Medical History (Updated 03/09/24 @ 13:59 by Carolina Gibson MD) History of nicotine dependence Diabetes Hypertension Surgical History History of arthroplasty of right knee Family History Mother Brain cancer Father Diabetes Social History (Updated 03/09/24 @ 13:45 by Carolina Gibson MD) Housing: Apartment Alcohol intake: former Patient Tobacco Use Status: Former Tobacco user e-Cigarette/Vaping Use: Never Used Second Hand Smoke Exposure: No service: No Current occupational status: unemployed Current occupation: right handed Cognitive needs: Yes Hearing needs: No Vision needs: No Questionnaire PHQ-9 Over the last 2 weeks, how often have you been bothered by any of the following problems? 1. Little interest or pleasure in doing things: not at all 2. Feeling down, depressed, or hopeless: several days 3. Trouble falling or staying asleep, or sleeping too much: not at all 4. Feeling tired or having little energy: not at all 5. Poor appetite or overeating: not at all 6. Feeling bad about yourself - or that you are a failure or have let yourself or your family down: not at all 7. Trouble concentrating on things, such as reading the newspaper or watching television: not at all 8. Moving or speaking so slowly that other people could have noticed. Or the opposite - being so fidgety or restless that you have been moving around a lot more than usual: not at all 9. Thoughts that you would be better off or of hurting yourself in some way: not at all Total score: 1 Depression Screening Interpretation: Negative Depression Screening Done: Yes 62666 - PHQ-9 Billing: Yes Source: Developed by Drs. Raul Sanderson, Katerina Cazares, Ok Morris and colleagues, with an educational marleni from [employer]. Thrive Questionnaire Date Thrive assessed: 03/09/24 I am a: Patient What is your living situation today?: I have a steady place to live Within the past 12 months, did the food you bought not last and you didn't have the money to get more?: Never true Within the past 12 months, did you worry whether your food would run out before you got money to buy more?: Never true Do you have trouble paying for medicines?: No Do you have trouble getting transportation to medical appointments?: No Do you have trouble paying your heating and electricity bill?: No Do you have trouble taking care of your child, family member or friend?: No Do you have trouble with day-to-day activities such as bathing, preparing meals, shopping, managing finances, etc.?: No Are you currently unemployed and looking for a job?: No Are you interested in more education?: No Please select the resources that you would like help with: None Currently or been in a relationship where the following occur: No concerns reported THRIVE Score: 0 AUDIT C Alcohol Use Questionnaire (AUDIT-C) 1. How often do you have a drink containing alcohol?: Never Total Score: 0 Score Reviewed/Action Taken: No ZARI-7 AMB Questionnaire ZARI-7 Date ZARI - 7 assessed: 03/09/24 Feeling nervous, anxious, or on edge: 0 = Not at all Not being able to stop or control worryin = Not at all Worrying too much about different things: 0 = Not at all Trouble relaxin = Not at all Being so restless that it is hard to sit still: 0 = Not at all Becoming easily annoyed or irritable: 0 = Not at all Feeling afraid as if something awful might happen: 0 = Not at all Total ZARI-7 score (0-4 normal; 5-9 mild; 10-14 moderate; 15-21 severe): 0 Source: Developed by Drs. Raul Sanderson, Katerina Cazares, Ok Morris and colleagues, with an educational marleni from [employer]. ZARI-7 Assessment Billing ZARI-7 Assessment Tool: ZARI-7 Assessment 15097 Review of Systems Const All systems reviewed & are unremarkable except as noted in HPI and below Card Denies chest pain at rest, Denies chest pain with activity, Denies edema, Denies irregular heart rhythm, Denies claudication, Denies dyspnea, Denies dyspnea on exertion, Denies orthopnea, Denies paroxysmal nocturnal dyspnea and Denies slow heart rate Resp Denies cough, Denies dyspnea and Denies dyspnea on exertion GI Denies abdominal pain, Denies change in bowel habits, Denies excessive flatus, Denies nausea and Denies vomiting Denies urinary hesitancy, Denies urinary incontinence and Denies urinary urgency Musc Denies abnormal gait, Denies atrophy, Denies deformity and Denies limited range of motion Skin/Breast Denies bleeding lesions, Denies changing lesions and Denies rash Neuro Denies abnormal gait and Denies lack of coordination Physical exam (Primary Care) Vital Signs: Last Vital Signs BP 112/72 03/09/24 13:32 BMI result Body Mass Index 29.9 Tobacco/Smoking Status: Tobacco use Status Tobacco use date assessed 03/09/24 03/09/24 13:41 Patient Tobacco Use Status Never used Tobacco 03/09/24 13:25 e-Cigarette/Vaping Use Never Used 03/09/24 13:41 PHQ-9: PHQ-9 Score PHQ-9: Total score 1 03/09/24 13:41 Depression Screening Interpretation: Negative Thrive Assessment: Date of Thrive Assessment Date Thrive assessed 03/09/24 03/09/24 13:41 Currently or been in a relationship where the following occur: No concerns reported Const Limitations: ambulation with cane Resp Effort & Inspection: normal respiratory effort Auscultation: clear to auscultation bilaterally Cardio Jugular venous distension: no JVD Rate: regular rate Rhythm: regular rhythm Heart sounds: S1 normal heart sound present and S2 normal heart sound present Extrem General: Yes full ROM Results AMB Hemoglobin A1c AMB Hemoglobin A1c 7.6 % Last Edit by MEHDI Gonsalves on 03/09/24 13:42 Assessment and Plan Assessment & Plan (1) Right hip pain: Code(s): M25.551 - Pain in right hip Plan: X-ray ordered. (2) Achalasia: Code(s): K22.0 - Achalasia of cardia Plan: Referred to Gastroenterology. (3) Former smoker: Code(s): Z87.891 - Personal history of nicotine dependence Plan: Ultrasound of the abdomen ordered. 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 A1c goal is equal or less than 7%. (5) Hypertension: Code(s): I10 - Essential (primary) hypertension Qualifiers: Hypertension type: primary hypertension Qualified Code(s): I10 - Essential (primary) hypertension Plan: Continue lisinopril. Blood pressure goal is equal or less than 130/80. (6) Mild major depression: Code(s): F32.0 - Major depressive disorder, single episode, mild Plan: Continue bupropion. Orders: Orders AMB Hemoglobin A1c Today E11.9 - Type 2 diabetes mellitus without complications Lipid Panel Today E78.5 - Hyperlipidemia, unspecified US abdominal aortic aneurysm Today Z87.891 - Personal history of nicotine dependence Microalbumin, Random (w Creat) Today E11.9 - Type 2 diabetes mellitus without complications Comprehensive [place]. Panel Fast Today E11.9 - Type 2 diabetes mellitus without complications XR hip RT min 2V Today M25.551 - Pain in right hip Referrals Gastroenterology Referral K22.0 - Achalasia of cardia Medications: New methocarbamol 1,000 mg (2 x 500 mg) PO Q8H 3 days 18 tabs 0RF Changed From insulin glargine (Lantus Solostar U-100 Insulin) 30 units subcut BEDTIME To insulin glargine (Lantus Solostar U-100 Insulin) 33 units (0.33 mL) subcut BEDTIME 90 days 29.7 mL 1RF Coding Level of Care Code Est Pt Level 4 (64176) Complex EM visit Add On G2211 Diagnoses Right hip pain M25.551 Achalasia K22.0 Former smoker Z87.891 Type 2 diabetes mellitus with hyperglycemia, with long-term current use of insulin E11.65; Z79.4 Diabetes mellitus type: type 2 Primary hypertension I10 Hypertension type: primary hypertension Mild major depression F32.0 Additional Codes ZARI-7 Assessment Billing - ZARI-7 Assessment Tool: ZARI-7 Assessment 09166 ([id number]) Time Spent (min) 25
[2024-03-09 13:32] VITALS: BP 112/72; BMI 29.9
== END 2024-03-09 13:54 | disposition home or self-care (01) ==
PROVIDERS: PCP Internal Medicine; Visit Provider Internal Medicine
DX: M25.551 Pain in right hip (principal); K22.0 Achalasia of cardia; Z87.891 Personal history of nicotine dependence; E11.65 Type 2 diabetes mellitus with hyperglycemia; Z79.4 Long term (current) use of insulin; I10 Essential (primary) hypertension; F32.0 Major depressive disorder, single episode, mild; E11.9 Type 2 diabetes mellitus without complications
CPT/HCPCS: 83036; 96127; 99214; G2211

== ENCOUNTER 2024-03-18 08:49 | Outpatient (REF) | payer OTHER, SELFPAY ==
--- NOTE | ~2024-03-18 | US_ITS ---
EXAMINATION: US ABDOMINAL AORTA CLINICAL INFORMATION: Personal history of smoking. COMPARISON: None. TECHNIQUE: Grayscale, color Doppler and spectral Doppler evaluation of the abdominal aorta. FINDINGS: The aorta is normal in caliber. The measurements of the aorta in maximum AP and transverse dimensions respectively are as follows: PROXIMAL: 2.3 x 2.3 cm. MID: 2.0 x 2.0 cm. DISTAL: 1.7 x 1.7 cm. The measurements of the common iliac arteries in maximum AP dimension are as follows: RIGHT COMMON ILIAC ARTERY: 1.0 cm. LEFT COMMON ILIAC ARTERY: 1.0 cm. US/US abdominal aortic aneurysm IMPRESSION: Negative for abdominal aortic aneurysm. Electronically signed by: Ankush Saini MD 03/21/2024 03:22 PM EDT
--- NOTE | ~2024-03-18 | XR_ITS ---
EXAMINATION: XR HIP, RIGHT CLINICAL INFORMATION: Right hip pain COMPARISON: Radiographs 09/14/2019 TECHNIQUE: Two views of the right hip. FINDINGS: Superomedial joint space narrowing, similar to previous, with minimal marginal osteophyte formation of the acetabular rim. No fracture or malalignment. Vascular calcifications again noted. XR/XR hip RT min 2V IMPRESSION: Mild right hip osteoarthritis, similar to previous. No acute osseous abnormality. Electronically signed by: Genaro Jamison MD 03/24/2024 09:34 AM EDT
== END 2024-03-18 08:50 | disposition home or self-care (01) ==
LOC: HO.US 08:49
PROVIDERS: PCP Internal Medicine; Visit Provider Internal Medicine
DX: M25.551 Pain in right hip (principal); Z87.891 Personal history of nicotine dependence
CPT/HCPCS: 73502; 76706

== ENCOUNTER → 2024-06-09 13:31 | Outpatient (BNVA) | payer OTHER, SELFPAY | PROVIDERS: PCP Internal Medicine ==

== ENCOUNTER 2024-07-25 14:52 | Outpatient (AMB) | payer OTHER, SELFPAY ==
--- OUTSIDE RECORDS SUMMARY | 2024-07-25 14:55 | XMS_ITS ---
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 Generated for Regla smith/Sagrario/eTransmitting on:?07/25/2024 02:54 PM EST
--- OUTSIDE RECORDS SUMMARY | 2024-07-25 14:55 | XMS_ITS | Patient Health Record ---
Author Organization [facility] Address [address] [place] [address] Care Team Providers Care Nanotechnology Engineering Technologist Name Role Phone Soledad EMERSON, [place] Primary Care Provider Unavail able Vj Ayala Unavailable [phone] Reason For Referral No Information Encounters Encounter Location Date Provider Diagnosis [facility] [address] [place] [address] 06/09/2024 Vj Ayala Plan Of Treatment Next Appt Details Provider Name:Vj Ayala , 09/21/2024 10:00:00 AM, [address] [facility], [facility] [address], [place], [address], Insurance Providers Payer Name Payer Address Payer Phone Subscriber Number Group Number Insured Name Patient Relationship to Insured Coverage Start Date Coverage End Date [facility] [address] [place] [address] [id number] Basim Saini Self - patient is the insured
[2024-07-25 15:33] VITALS: BP 112/62; BMI 30.1
--- NOTE | 2024-07-25 15:33 | MHC.PC.OV ---
Vital Signs 07/25/24 15:33 Height 5 ft Weight 154 lb BMI 30.1 BP 112/62 Blood Pressure Location Lt brachial Position Sitting Intake Visit Reasons: PE Intake Note: Patient here for a physical exam, c/o left side pain due to a fall, rash on groin area Safe Deposit Attendant Required: No Accompanied by: Spouse Allergies empagliflozin [From Jardiance] Adverse Reaction (Intermediate, Verified 07/25/24 16:09) fungal infection in penis Medication List - Last Reconciled 07/25/24 by [place] Gibson MD acetaminophen 650 mg (2 x 325 mg) PO Q6H PRN aspirin 81 mg PO BEDTIME blood pressure test kit-large As directed bupropion HCl XL 150 mg PO QAM 90 days calcium carbonate-vitamin D3 600 mg-5 mcg (200 unit) 1 tab PO BID 90 days clotrimazole-betamethasone 1-0.05 % 1 appl topical BID PRN 2 weeks dulaglutide (Trulicity) 0.75 mg (0.5 mL) subcut QWEEK 4 weeks empagliflozin (Jardiance) 25 mg PO QAM 90 days flash glucose sensor (FreeStyle Júnior 2 Sensor kit) USE DIRECTED EVERY 14 DAYS [free style lite meter As directed] insulin glargine (Lantus Solostar U-100 Insulin) 33 units (0.33 mL) subcut BEDTIME 90 days lancets As directed lisinopril 10 mg PO QAM metformin 1,000 mg PO BID 90 days methocarbamol 1,000 mg (2 x 500 mg) PO Q8H 3 days multivitamin 1 tab PO QAM 90 days omeprazole 20 mg PO DAILY 90 days pravastatin 40 mg PO BEDTIME tamsulosin 0.4 mg PO QAM Tobacco use date assessed: 03/09/24 Fall risk assessment: 1 Fall in past year Last assessed Fall Risk: 07/25/24 Dental Screening Dental Screen Date: 03/09/24 HPI HPI Comments History of Present Illness Details The patient is a 74-year-old male presenting for a routine physical examination and evaluation of a recent fall and a rash. Regarding the fall, the patient reports losing balance and falling three days ago, hitting his left side against a gas cylinder, which has resulted in pain on the left side, particularly around the rib area. In terms of the rash, he reports itching on the penis which has been recurring; initial relief is reported with topical application but the rash returns. The patient reports a history of hearing loss and narrates a past hearing examination, with recommendations for hearing aids which have not been updated in over a year. He has been diagnosed and treated for several chronic conditions including Type 2 Diabetes Mellitus, Essential Hypertension, Hyperlipidemia, GERD, and prostatitis. Medication history includes Trulicity, Jardiance, Lantus, and pravastatin among others, with a reported adverse reaction from Jardiance perceived as contributing to the rash. - The patient is in need of a tetanus booster; last vaccination was in 2003. - Influenza vaccination recommended; not yet received for this year. - Pneumococcal vaccine status not discussed. - Routine diabetes management; Trulicity dose adjustment discussed. [facility] Medical History History of nicotine dependence Diabetes Hypertension Surgical History History of arthroplasty of right knee Family History Mother Brain cancer Father Diabetes Social History Housing: Apartment Alcohol intake: former Patient Tobacco Use Status: Former Tobacco user e-Cigarette/Vaping Use: Never Used Second Hand Smoke Exposure: No service: No Current occupational status: unemployed Current occupation: right handed Cognitive needs: Yes Hearing needs: No Vision needs: No Questionnaire Thrive Questionnaire Date Thrive assessed: 03/09/24 ZARI-7 AMB Questionnaire ZARI-7 Date ZARI - 7 assessed: 03/09/24 Source: Developed by Drs. Raul Sanderson, Katerina Cazares, Ok Morris and colleagues, with an educational marleni from [employer]. Review of Systems Const Details: - General: Reports a fall resulting in rib pain on the left side. - Dermatologic: Reports a recurring rash on the penis. - Endocrine: Reports Type 2 Diabetes Mellitus, A1c of 7.8 has been noted as slightly elevated from previous results. Physical exam (Primary Care) Vital Signs: Last Vital Signs BP 112/62 07/25/24 15:33 BMI result Body Mass Index 30.1 BMI Assessment/Plan discussion: High BMI High, discussed plan: lifestyle, weight reduction, dietary and physical activity Tobacco/Smoking Status: Tobacco use Status Tobacco use date assessed 03/09/24 07/25/24 15:38 Patient Tobacco Use Status Former Tobacco user 07/25/24 15:38 e-Cigarette/Vaping Use Never Used 07/25/24 15:38 Thrive Assessment: Date of Thrive Assessment Date Thrive assessed 03/09/24 07/25/24 15:38 Const Other: General: Cooperative, healthy appearing, comfortable, no acute distress and well developed Orientation: Patient oriented x3 Limitations: Walks with a cane Head: Normal to inspection Ears: Hearing impaired, requires hearing aid Nose: Normal external nose present Face and sinus: Normal facial exam Eyes: Appearance normal, both eyes and all related structures Neck: Normal visual inspection and Yes full ROM Respiratory: Normal respiratory effort and able to speak in complete sentences. Clear to auscultation bilaterally Cardiovascular: Regular rate and rhythm. Normal S1 and S2 GI: Normal to inspection. Soft to palpation and nontender Skin: Rash noted on the penis Neuro: Patient oriented x3 Extremities: Normal to inspection, recent fall reported with left rib pain, pending imaging for evaluation Office Procedures Flu Questionnaire Does the patient have a severe egg allergy?: No Results AMB Hemoglobin A1c AMB Hemoglobin A1c 7.8 % Last Edit by MEHDI Gonsalves on 07/25/24 15:43 Immunizations Fluarix Triv 8191-2800 (PF) 45 mcg (15 mcg x 3)/0.5 mL IM syringe Performing Provider: [place] Gibson MD Performing Location: [facility] Documented (not given) by: MEHDI Gonsalves on 07/25/24 16:07 Reason Not Given: Patient Refused tetanus-diphtheria toxoids-Td 2 Lf unit-2 Lf unit/0.5 mL IM suspension Performing Provider: [place] Gibson MD Performing Location: [facility] Administered by: MEHDI Gonsalves on 07/25/24 16:12 Dose Route Admin Location Dispensed Lot Number Expiration Date [facility] Steam Bone Press Tender 0.5 mL IM Left Deltoid 0.5 mL [id number] 09/05/24 [address]-9 [employer] VIS Given Date VIS Provided VIS Publication Date 07/25/24 Single Vaccine 21 Eligibility Eligibility Date Funding Source Not VF Eligible 07/25/24 State funds Results Reviewed Results Reviewed: Laboratory Last Values Hgb A1c (Clinic) 7.8 % (4.0-6.0) H 07/25/24 15:28 Coding Level of Care Code Est Pt Level 3 (79720) Est Pt Prev Care >65y(49489) Diagnoses Physical exam Z00.00 Mild major depression F32.0 Type 2 diabetes mellitus with hyperglycemia, with long-term current use of insulin E11.65; Z79.4 Diabetes mellitus type: type 2 Rib pain on left side R07.81 Decreased hearing of both ears H91.93 Rash R21 Time Spent (min) 35 Assessment & Plan Assessment & Plan (1) Physical exam: Code(s): Z00.00 - Encounter for general adult medical examination without abnormal findings Category: Medical (2) Mild major depression: Code(s): F32.0 - Major depressive disorder, single episode, mild Category: Medical (3) Diabetes mellitus with hyperglycemia, with long-term current use of insulin: Code(s): E11.65 - Type 2 diabetes mellitus with hyperglycemia; Z79.4 - assisted (current) use of insulin Category: Medical Qualifiers: Diabetes mellitus type: type 2 Qualified Code(s): E11.65 - Type 2 diabetes mellitus with hyperglycemia; Z79.4 - 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 - Discontinue Jardiance due to the rash and replace with an alternative medication. - Increase Trulicity dosage and emphasize the importance of maintaining its storage protocol in the refrigerator. - Administer a tetanus booster due to the elapsed duration since the last dose. - Consider re-evaluation for hearing aids due to advancing hearing loss. - Address hypertension, diabetes management, GERD, and hyperlipidemia through lifestyle modifications and ongoing medications. Patient was informed and verbally consented to the use of an ambient scribe for clinic note documentation during this visit. During today's visit, I discussed the importance of adherence to prescribed medications for chronic conditions, including diabetes and hypertension. I explained the risks of uncontrolled blood sugar and potential benefits of increasing Trulicity dosage, which may aid in weight management. We reviewed the need for an X-ray due to his reported fall and left rib pain. I addressed the rash, suspected to be due to Jardiance, and discussed plans to stop this medication, offering alternatives while providing topical cream for symptomatic relief. I advised obtaining a tetanus booster and recommended the flu vaccine. I emphasized the importance of lifestyle modifications to support overall health, especially concerning his sugar levels and weight management. Orders: Orders AMB Hemoglobin A1c Today E11.9 - Type 2 diabetes mellitus without complications Lipid Panel Today E78.5 - Hyperlipidemia, unspecified Influenza [id number] Immunization Today Z23 - Encounter for immunization Td State Immunization Today Z23 - Encounter for immunization Microalbumin, Random (w Creat) Today R80.9 - Proteinuria, unspecified Comprehensive Sundown. Panel Fast Today E11.65 - Type 2 diabetes mellitus with hyperglycemia, Z79.4 - assisted (current) use of insulin XR ribs LT 2V Today R07.81 - Pleurodynia Referrals Speech and Hearing Referral H91.93 - Unspecified hearing loss, bilateral Medications: Changed From insulin glargine (Lantus Solostar U-100 Insulin) 33 units (0.33 mL) subcut BEDTIME 90 days 29.7 mL 1RF To insulin glargine (Lantus Solostar U-100 Insulin) 35 units (0.35 mL) subcut BEDTIME 31.5 mL 1RF 90 days Refilled clotrimazole-betamethasone 1-0.05 % 1 appl topical BID PRN 45 grams 0RF rash 2 weeks R21 - Rash and other nonspecific skin eruption Discontinued empagliflozin (Jardiance) Discontinued Reason: Patient Completed Course 25 mg PO QAM 90 days 90 tabs 5RF Patient Instructions: - Obtain a rib X-ray as soon as possible. - Discontinue Jardiance; await new prescription. - Begin increased dosage of Trulicity and store properly. - Receive a tetanus booster today. - Schedule a visit for a flu vaccine. - Be cautious of fall risk at home. - Monitor for and report any worsening of the rash or other side effects. - Resume physical activities cautiously, taking into account the need for balance stability. - Follow prescribed diet and glucose monitoring rigorously. - Consider arranging a follow-up hearing assessment for aid re-evaluation.
== END 2024-07-25 16:14 | disposition home or self-care (01) ==
PROVIDERS: PCP Internal Medicine; Visit Provider Internal Medicine
DX: Z00.00 Encounter for general adult medical examination without abnormal findings (principal); F32.0 Major depressive disorder, single episode, mild; E11.65 Type 2 diabetes mellitus with hyperglycemia; Z79.4 Long term (current) use of insulin; E11.9 Type 2 diabetes mellitus without complications; R07.81 Pleurodynia; H91.93 Unspecified hearing loss, bilateral; R21 Rash and other nonspecific skin eruption; Z23 Encounter for immunization

== ENCOUNTER 2024-08-05 08:14 | Outpatient (REF) | payer OTHER, SELFPAY ==
--- NOTE | ~2024-08-05 | XR_ITS ---
CLINICAL HISTORY: R07.81 - Pleurodynia 3 view left ribs Comparison: None Findings: Bones intact. No dislocations. The visualized lungs are normal. IMPRESSION: 1. No acute findings This document has been electronically signed by: Piter Francis MD on 08/08/2024 10:41:30
--- OUTSIDE RECORDS SUMMARY | 2024-08-05 08:18 | XMS_ITS | Patient Health Record ---
Author Organization [facility] Address [address] [place] [address] Care Team Providers Care Asbestos Worker Name Role Phone Soledad EMERSON, [place] Primary Care Provider Unavail able Vj Ayala Unavailable [phone] Reason For Referral No Information Encounters Encounter Location Date Provider Diagnosis [facility] [address] [place] [address] 06/09/2024 Vj Ayala Plan Of Treatment Next Appt Details Provider Name:Vj Ayala , 09/21/2024 10:00:00 AM, [address] [facility], [facility] [address], [place], [address], Insurance Providers Payer Name Payer Address Payer Phone Subscriber Number Group Number Insured Name Patient Relationship to Insured Coverage Start Date Coverage End Date [facility] [address] [place] [address] [id number] Basim Saini Self - patient is the insured
--- OUTSIDE RECORDS SUMMARY | 2024-08-05 08:18 | XMS_ITS ---
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 Generated for Regla smith/Sagrario/eTransmitting on:?08/05/2024 08:17 AM EST
== END 2024-08-05 08:15 | disposition home or self-care (01) ==
LOC: HO.XRAY 08:14
PROVIDERS: PCP Internal Medicine; Visit Provider Internal Medicine
DX: R07.81 Pleurodynia (principal)
CPT/HCPCS: 71100

== ENCOUNTER → 2024-08-05 08:20 | Outpatient (BNV) | payer OTHER, SELFPAY | PROVIDERS: PCP Internal Medicine; Visit Provider Radiology Vascular & Interventional Radiology | DX: R07.81 Pleurodynia (principal) | CPT/HCPCS: 71100 ==

== ENCOUNTER 2024-11-23 12:44 | Outpatient (AMB) | payer OTHER, SELFPAY ==
--- NOTE | 2024-11-23 13:15 | A.OFFPC_ITS ---
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 Medication List - Last Reconciled 11/23/24 by Carolina Gibson MD acetaminophen 650 mg (2 x 325 mg) PO Q6H PRN aspirin 81 mg PO BEDTIME blood pressure test kit-large As directed bupropion HCl XL 150 mg PO QAM 90 days calcium carbonate-vitamin D3 600 mg-5 mcg (200 unit) 1 tab PO BID 90 days clotrimazole-betamethasone 1-0.05 % 1 appl topical BID PRN 2 weeks dulaglutide (Trulicity) 0.75 mg (0.5 mL) subcut QWEEK 4 weeks flash glucose sensor (FreeStyle Júnior 2 Sensor kit) USE DIRECTED EVERY 14 DAYS [free style lite meter As directed] insulin glargine (Lantus Solostar U-100 Insulin) 35 units (0.35 mL) subcut BEDTIME 90 days lancets As directed lisinopril 10 mg PO QAM metformin 1,000 mg PO BID 90 days methocarbamol 1,000 mg (2 x 500 mg) PO Q8H 3 days multivitamin 1 tab PO QAM 90 days omeprazole 20 mg PO DAILY 90 days pravastatin 40 mg PO BEDTIME tamsulosin 0.4 mg PO QAM Tobacco use date assessed: 11/23/24 Fall risk assessment: No Falls in past year Last assessed Fall Risk: 11/23/24 Dental Screening Dental Screen Date: 11/23/24 Did you have a dental visit in the last 12 months?: No Did you have a dental problem in the last 6 months where you did not have access to dental care?: No Was dental information given to patient?: Patient has dentist HPI HPI Comments History of Present Illness Details The patient is a 74-year-old male presenting for the management of multiple chronic conditions and a recent episode of hematuria. He maintains his Type 2 Diabetes Mellitus under control, as evidenced by an A1c of 6.9. The patient has a history of non-proliferative diabetic retinopathy and continues with regular eye exams. He notes improvement in depressive symptoms under current medication, user-reporting a PHQ-9 score of 3. He experienced hematuria, prompting care at an emergency department where initial imaging was performed. Upcoming further evaluation with a urologist is anticipated. An adverse reaction to empagliflozin necessitated its discontinuation. Other medications include treatments for hypertension, GERD, hyperlipidemia, and benign prostatic hyperplasia. [facility] Medical History (Updated 11/23/24 @ 13:58 by Carolina Gibson MD) History of nicotine dependence Diabetes Hypertension Surgical History History of arthroplasty of right knee Family History Mother Brain cancer Father Diabetes Social History Housing: Apartment Alcohol intake: former Patient Tobacco Use Status: Former Tobacco user e-Cigarette/Vaping Use: Never Used Second Hand Smoke Exposure: No service: No Current occupational status: unemployed Current occupation: right handed Cognitive needs: Yes Hearing needs: No Vision needs: No Questionnaire PHQ-9 Over the last 2 weeks, how often have you been bothered by any of the following problems? 1. Little interest or pleasure in doing things: not at all 2. Feeling down, depressed, or hopeless: several days 3. Trouble falling or staying asleep, or sleeping too much: not at all 4. Feeling tired or having little energy: not at all 5. Poor appetite or overeating: not at all 6. Feeling bad about yourself - or that you are a failure or have let yourself or your family down: not at all 7. Trouble concentrating on things, such as reading the newspaper or watching television: several days 8. Moving or speaking so slowly that other people could have noticed. Or the opposite - being so fidgety or restless that you have been moving around a lot more than usual: several days 9. Thoughts that you would be better off or of hurting yourself in some way: not at all Total score: 3 Depression Screening Interpretation: Positive Depression Screening Follow-up: Existing condition, In treatment and Follow-up Visit Requested Depression Screening Done: Yes 02076 - PHQ-9 Billing: Yes Source: Developed by Drs. Raul Sanderson, Katerina Cazares, Ok Morris and colleagues, with an educational marleni from [employer]. Thrive Questionnaire Date Thrive assessed: 11/23/24 I am a: Patient What is your living situation today?: I have a steady place to live Within the past 12 months, did the food you bought not last and you didn't have the money to get more?: Never true Within the past 12 months, did you worry whether your food would run out before you got money to buy more?: Never true Do you have trouble paying for medicines?: No Do you have trouble getting transportation to medical appointments?: Yes Do you have trouble paying your heating and electricity bill?: No Do you have trouble taking care of your child, family member or friend?: No Do you have trouble with day-to-day activities such as bathing, preparing meals, shopping, managing finances, etc.?: No Are you currently unemployed and looking for a job?: Yes Are you interested in more education?: Yes Please select the resources that you would like help with: None Currently or been in a relationship where the following occur: No concerns reported THRIVE Score: 1 AUDIT C Alcohol Use Questionnaire (AUDIT-C) 1. How often do you have a drink containing alcohol?: Never Total Score: 0 Score Reviewed/Action Taken: No ZARI-7 AMB Questionnaire ZARI-7 Date ZARI - 7 assessed: 11/23/24 Feeling nervous, anxious, or on edge: 1 = Several days Not being able to stop or control worryin = Several days Worrying too much about different things: 1 = Several days Trouble relaxin = Several days Being so restless that it is hard to sit still: 1 = Several days Becoming easily annoyed or irritable: 1 = Several days Feeling afraid as if something awful might happen: 0 = Not at all Total ZARI-7 score (0-4 normal; 5-9 mild; 10-14 moderate; 15-21 severe): 6 Source: Developed by Katerina Montes De Oca Kurt Kroenke and colleagues, with an educational marleni from [employer]. ZARI-7 Assessment Billing ZARI-7 Assessment Tool: ZARI-7 Assessment 21934 Review of Systems Const All systems reviewed & are unremarkable except as noted in HPI and below Card Denies chest pain at rest, Denies chest pain with activity, Denies edema, Denies irregular heart rhythm, Denies claudication, Denies dyspnea, Denies dyspnea on exertion, Denies orthopnea, Denies paroxysmal nocturnal dyspnea and Denies slow heart rate Resp Denies cough, Denies dyspnea and Denies dyspnea on exertion GI Denies abdominal pain, Denies change in bowel habits, Denies excessive flatus, Denies nausea and Denies vomiting Skin/Breast Denies bleeding lesions, Denies changing lesions and Denies rash Neuro Denies lack of coordination Physical exam (Primary Care) Vital Signs: Last Vital Signs BP 110/66 11/23/24 13:16 BMI result Body Mass Index 30.5 BMI Assessment/Plan discussion: High BMI High, discussed plan: lifestyle, weight reduction, dietary and physical activity Tobacco/Smoking Status: Tobacco use Status Tobacco use date assessed 11/23/24 11/23/24 13:19 Patient Tobacco Use Status Former Tobacco user 11/23/24 13:19 e-Cigarette/Vaping Use Never Used 11/23/24 13:19 PHQ-9: PHQ-9 Score PHQ-9: Total score 3 11/23/24 13:19 Depression Screening Interpretation: Positive Depression Screening Follow-up: Existing condition, In treatment and Follow-up Visit Requested Thrive Assessment: Date of Thrive Assessment Date Thrive assessed 11/23/24 11/23/24 13:19 Currently or been in a relationship where the following occur: No concerns reported Neck Neck: Yes normal visual inspection and Yes supple Resp Effort & Inspection: normal respiratory effort Auscultation: clear to auscultation bilaterally Cardio Jugular venous distension: no JVD Rate: regular rate Rhythm: regular rhythm Heart sounds: S1 normal heart sound present and S2 normal heart sound present GI Inspection: Yes normal to inspection Palpation (GI): Soft to palpation and nontender Auscultation: normal bowel sounds Extrem General: Yes full ROM Results AMB Hemoglobin A1c AMB Hemoglobin A1c 6.9 % Last Edit by MEHDI Gonsalves on 11/23/24 13:2 8 Results Reviewed Results Reviewed: Laboratory Last Values Hgb A1c (Clinic) 6.9 % (4.0-6.0) H 11/23/24 13:15 Coding Level of Care Code Est Pt Level 4 (44235) Complex EM visit Add On G2211 Diagnoses Type 2 diabetes mellitus with hyperglycemia, with long-term current use of insulin E11.65; Z79.4 Diabetes mellitus type: type 2 Mild major depression F32.0 Left foot pain M79.672 Urticaria L50.9 Microscopic hematuria R31.29 Essential hypertension I10 Non-proliferative diabetic retinopathy, mild, both eyes E11.3293 Hyperlipidemia LDL goal <70 E78.5 Additional Codes PHQ-9 - 45438 - PHQ-9 Billing: Yes ([id number]) ZARI-7 Assessment Billing - ZARI-7 Assessment Tool: ZARI-7 Assessment [id number] ([id number]) Time Spent (min) 22 Assessment & Plan Assessment & Plan (1) Diabetes mellitus with hyperglycemia, with long-term current use of insulin: Code(s): E11.65 - Type 2 diabetes mellitus with hyperglycemia; Z79.4 - termite renewal inspector (current) use of insulin Category: Medical Qualifiers: Diabetes mellitus type: type 2 Qualified Code(s): E11.65 - Type 2 diabetes mellitus with hyperglycemia; Z79.4 - termite renewal inspector (current) use of insulin (2) Mild major depression: Code(s): F32.0 - Major depressive disorder, single episode, mild Category: Medical (3) Left foot pain: Code(s): M79.672 - Pain in left foot Category: Medical (4) Urticaria: Code(s): L50.9 - Urticaria, unspecified Category: Medical (5) Microscopic hematuria: Code(s): R31.29 - Other microscopic hematuria Category: Medical (6) Essential hypertension: Code(s): I10 - Essential (primary) hypertension Category: Medical (7) Non-proliferative diabetic retinopathy, mild, both eyes: Code(s): E11.3293 - Type 2 diabetes mellitus with mild nonproliferative diabetic retinopathy without macular edema, bilateral Category: Medical (8) Hyperlipidemia LDL goal <70: Code(s): E78.5 - Hyperlipidemia, unspecified Category: Medical Plan The patient's diabetes is stable with an improved A1c level, and current diabetic management will persist. The patient will continue routine ophthalmological follow-ups due to non-proliferative diabetic retinopathy. Management of depression with bupropion is effective, and the patient will continue the current dosing. Lisinopril will manage hypertension effectively, claudia pichardo deliberate evaluation for additional antihypertensive interventions will occur as needed. In response to hematuria, the patient will undergo a targeted urologic evaluation. The course of action for pruritus includes allergy-directed management and symptomatic treatment. Imaging and orthopedic review will prioritize left ankle discomfort. Patient was informed and verbally consented to the use of an ambient scribe for clinic note documentation during this visit. I discussed with the patient the current status of his chronic conditions, noting that his Type 2 Diabetes Mellitus management has led to an A1c reduction. We reviewed the significance of the ongoing eye assessments for his diabetic retinopathy. The patient acknowledged the improvement in his depressive symptoms and the effectiveness of bupropion. We stressed the importance of continuing Lisinopril to manage hypertension. I informed him about the necessity for urologic evaluation following the hematuria episode, ensuring he attends the scheduled appointment. The situation regarding his allergy to empagliflozin was addressed, and alternative management plans have been considered. We planned ware cleaner referral for his pruritus symptoms and possible imaging of his left ankle to ascertain the cause of discomfort. Orders: Orders Microalbumin, Random (w Creat) Today R80.9 - Proteinuria, unspecified XR foot LT 2V Today M79.672 - Pain in left foot AMB Hemoglobin A1c Today E11.65 - Type 2 diabetes mellitus with hyperglycemia, Z79.4 - termite renewal inspector (current) use of insulin Vitamin D 25-OH Total Today E55.9 - Vitamin D deficiency, unspecified Lipid Panel Today E78.5 - Hyperlipidemia, unspecified Comprehensive [place]. Panel Fast Today E11.65 - Type 2 diabetes mellitus with hyp erglycemia, Z79.4 - custodial (current) use of insulin Referrals Open Access Screening Colonoscopy Referral Z12.12 - Encounter for screening for malignant neoplasm of rectum Allergy & Immunology Referral L50.9 - Urticaria, unspecified Medications: New cromolyn 4% 1 drp ophthalmic (eye) QID 30 days 10 mL 1RF Patient Instructions: - Continue current diabetes, depression, and hypertension medications as prescribed. - Attend the scheduled urology appointment on February 01 for further evaluation. - Use eye drops for symptomatic relief of pruritus. - Maintain appointments with your flatbed driver for diabetic retinopathy. - Avoid using empagliflozin (Jardiance) due to previous allergic reaction. - Prepare for fasting labs; check with the medical office for laboratory orders. - Monitor for any severe changes in symptoms and seek immediate care if necessary.
[2024-11-23 13:16] VITALS: BP 110/66; BMI 30.5
--- OUTSIDE RECORDS SUMMARY | 2024-11-23 13:57 | XMS_ITS | Encounter Summary ---
Author Organization [employer] Address [address] [facility] [address] [place] [address] Care Team Providers Care Flexo Press Operator Name Role Phone Unavailable Primary Care Provider Unavailabl e Reason for Visit * Reason Comments Med Refill Encounter Details Date Type Department Care Team ([facility] st Contact Info) Description 01/26/[address] [facility] MEDICINE [address] [place], [place] [phone] Name, MD Al [address] [place], [place] [phone] Type 2 diabetes mellitus with hyperglycemia, with long-term current use of insulin ([facility]) Social History Tobacco Use Types Packs/Day Years Used Date Smoking Tobacco: Former Cigarettes Passive Smoke Exposure: Past Smokeless Tobacco: Never Comments:Quit at approx .age 19, >50 yo ago Alcohol Use Standard Drinks/Week Comments Not Currently 0 (1 standard drink = 0.6 oz pure alcohol) consumes on occasions, 1-2x per year Depression Answer Date Recorded Patient Health Questionnaire-9 Score 16 12/24/2022 Housing Stability Answer Date Recorded What is your housing situation today? I have kendal bullock 05/13/[address] you li ve. Do you have problems with any of the following? None of the above 05/13/2023 Food Insecurity Answer Date Recorded Within the past 12 months, y ou worried that your food would run out before you got money to buy more: Never True 05/13/2023 Within the past 12 months,th e food you bought just didn't last and you didn't have enough money to get more: Never True Transportation Answer Date Recorded In the past 12 months, has l ack of transportation kept you from medical appts, meetings, work or from getting things needed for daily living? No 05/13/2023 Utilities Answer Date Recorded In the past 12 months, has t he electric, gas, oil or water company threatened to shut off services in your home? Yes 05/03/2023 Depression Answer Date Recorded Patient Health Questionnaire-2 Score 4 12/24/2022 Sex and Gender Information Value Date Recorded Sex Assigned at Male 05/26/2022 10:15 AM EDT Legal Sex Male 10:15 AM EDT Gender Identity Male 05/26/2022 10:15 AM EDT Sexual Orientation Straight 05/26/2022 10 :15 AM EDT documented as of this encounter Plan of Treatment Not on file documented as of this encounter Goals Goal Patient Goal Type Associated Problems Recent Progress Patient-Stated? Author Blood Pressure < 140/90 Blood Pressure 130/70(2023 9:04 AM EST) No Odilia Carrasco, Kiko Note: Maintain BP at goal of < 140/90 mmHg over the next 3 months. Hemoglobin A1c < 7.5 Result Component 8.6( 10:06 AM EDT) No Odilia Carrasco, Kiko Note: Achieve A1c goal of <7.5% in the next three months documented as of this encounter Visit Diagnoses Diagnosis Type 2 diabetes mellitus with hyperglycemia, with long-term current use of insulin ([facility]) documented in this encounter Additional Health Concerns Assessment Noted Time PHQ-9 Depression Total Score: 16 023 9:50 AM EDT documented as of this encounter
--- OUTSIDE RECORDS SUMMARY | 2024-11-23 13:57 | XMS_ITS | Encounter Summary ---
Author Organization [employer] Address [address] [facility] [address] [place] [address] Care Team Providers Care Heat Treater Name Role Phone Unavailable Primary Care Provider Unavailabl e Reason for Visit * Reason Comments Med Refill Encounter Details Date Type Department Care Team ([facility] st Contact Info) Description 03/03/2024 Refill [facility] MEDICINE [address] [place], [place] [phone] Name, MD Al [address] [place], [place] [phone] Depressive disorder Social History Tobacco Use Types Packs/Day Years [...] as of this encounter Visit Diagnoses Diagnosis Depressive disorder Depressive disorder, not elsewhere classified documented in this encounter Additional Health Concerns Assessment Noted Time PHQ-9 Depression Total Score: 16 023 9:50 AM EDT documented as of this encounter
--- OUTSIDE RECORDS SUMMARY | 2024-11-23 13:57 | XMS_ITS | Encounter Summary ---
Author Organization [employer] Address [address] [facility] 7[address] [place] [address] Care Team Providers Care Hand Roller Name Role Phone Unavailable Primary Care Provider Unavailabl e Reason for Visit * Reason Comments Med Refill Encounter Details Date Type Department Care Team ([facility] st Contact Info) Description 01/28/2024 Refill [facility] MEDICINE [address] [place], [place] [phone] Name, MD Al [address] [place], [place] [phone] Social History Tobacco Use Types Packs/Day Years [...] is your housing situation today? I have kendla bullock 05/13/[address] you [...] documented as of this encounter Visit Diagnoses Not on filedocumented in this encounter Additional Health Concerns Assessment Noted Time PHQ-9 Depression Total Score: 16 023 9:50 AM EDT documented as of this encounter
--- OUTSIDE RECORDS SUMMARY | 2024-11-23 13:57 | XMS_ITS | Encounter Summary ---
Author Organization [employer] Address [address] [facility] [address] [place] [address] Care Team Providers Care Captain Fishing Vessel Name Role Phone Unavailable Primary Care Provider Unavailabl e Reason for Visit * Reason Comments Med Refill Encounter Details Date Type Department Care Team ([facility] Contact Info) Description 01/05/2024 Refill [facility] [address] [place] [address] Merle Irwin MD [address] [place], [place] [phone] Social History Tobacco Use Types Packs/Day Years [...]
--- OUTSIDE RECORDS SUMMARY | 2024-11-23 13:57 | XMS_ITS | Encounter Summary ---
Author Organization ? [employer] Address [address] [facility] [address] [place] [address] Care Team Providers Care Wire Spiral Binder Name Role Phone Unavailable Primary Care Provider Unavailabl e Reason for Visit * Reason Comments Med Refill Encounter Details Date Type Department Care Team ([facility] st Contact Info) Description 01/21/2024 Refill [facility] MEDICINE [address] [place], [place] [phone] Name, MD Al [address] [place], [place] [phone] Type 2 diabetes mellitus with hyperglycemia, with long-term current use of insulin ([facility]) Social History Tobacco Use Types Packs/Day Years [...] hyperglycemia, with long-term current use of insulin ([facility]) documented in this encounter Additional Health Concerns Assessment Noted Time PHQ-9 Depression Total Score: 16 023 9:50 AM EDT documented as of this encounter
--- OUTSIDE RECORDS SUMMARY | 2024-11-23 13:57 | XMS_ITS | Encounter Summary ---
Author Organization [email or web address] Address [address] [facility] [address] [place] [address] Care Team Providers Care Nuclear Reactor Operator Name Role Phone Unavailable Primary Care Provider Unavailabl e Reason for Visit * Reason Comments Med Refill Encounter Details Date Type Department Care Team ([facility] st Contact Info) Description 01/12/2024 Refill [facility] MEDICINE [address] [place], [place] [phone] Name, MD Al [address] [place], [place] [phone] Type 2 diabetes mellitus with hyperglycemia, with long-term current use of insulin ([facility]) Social History Tobacco Use Types Packs/Day Years [...] hyperglycemia, with long-term current use of insulin ([facility]) documented in this encounter Additional Health Concerns Assessment Noted Time PHQ-9 Depression Total Score: 16 023 9:50 AM EDT documented as of this encounter
--- OUTSIDE RECORDS SUMMARY | 2024-11-23 13:57 | XMS_ITS | Patient Health Record ---
Author Organization [facility] Address [address] [place] [address] Care Team Providers Care Quality Rep Name Role Phone Soledad EMERSON, [place] Primary Care Provider Unavail Vj Fischer Unavailable [phone] Reason For Referral No Information Encounters Encounter Location Date Provider Diagnosis [facility] [address] [place] [address] 06/09/2024 Vj Ayala [address] [address] 09/19/2024 Vj Ayala Plan Of Treatment Next Appt Details Provider Name:Vj Ayala , 12/12/2024 10:00:00 AM, [address], [place], [address], Insurance Providers Payer Name Payer Address Payer Phone Subscriber Number Group Number Insured Name Patient Relationship to Insured Coverage Start Date Coverage End Date [facility] [address] [place] [phone] [id number] Basim Saini Self - patient is the insured
--- OUTSIDE RECORDS SUMMARY | 2024-11-23 13:57 | XMS_ITS | Encounter Summary ---
Author Organization [employer] Address [address] [facility] [address] [place] [address] Care Team Providers Care Director Industrial Nursing Name Role Phone Unavailable Primary Care Provider Unavailabl e Reason for Visit * Reason Comments Med Refill Encounter Details Date Type Department Care Team ([facility] st Contact Info) Description 03/07/2024 Refill [facility] MEDICINE [address] [place], [place] [phone] Name, MD Al [address] [place], [place] [phone] Essential hypertension Social History Tobacco Use Types Packs/Day Years [...] as of this encounter Visit Diagnoses Diagnosis Essential hypertension Unspecified essential hypertension documented in this encounter Additional Health Concerns Assessment Noted Time PHQ-9 Depression Total Score: 16 023 9:50 AM EDT documented as of this encounter
--- OUTSIDE RECORDS SUMMARY | 2024-11-23 13:57 | XMS_ITS | Encounter Summary ---
Author Organization [employer] Address [address] [facility] [address] [place] [address] Care Team Providers Care Triage Register Nurse Name Role Phone Unavailable Primary Care Provider Unavailabl e Reason for Visit * Reason Comments Med Refill Encounter Details Date Type Department Care Team ([facility] st Contact Info) Description 03/30/2024 Refill [facility] MED[facility]INE [address] [place], [place] [phone] Name, MD Al [address] [place], [place] [phone] Essential hypertension; Nocturia Social History Tobacco Use Types Packs/Day Years [...] Diagnoses Diagnosis Essential hypertension Unspecified essential hypertension Nocturia documented in this encounter Additional Health Concerns Assessment Noted Time PHQ-9 Depression Total Score: 16 023 9:50 AM EDT documented as of this encounter
--- OUTSIDE RECORDS SUMMARY | 2024-11-23 13:57 | XMS_ITS | Encounter Summary ---
Author Organization [employer] Address [address] [facility] 7t [place] [address] Care Team Providers Care Deputy Probation Officer Name Role Phone Unavailable Primary Care Provider Unavailabl e Reason for Visit * Reason Comments Med Refill Encounter Details Date Type Department Care Team ([facility] st Contact Info) Description 04/05/2024 Refill [facility] MEDICINE [address] [place], [place] [phone] Name, MD Al [address] [place], [place] [phone] Nocturia; Essential hypertension Social History Tobacco Use Types [...] as of this encounter Visit Diagnoses Diagnosis Nocturia Essential hypertension Unspecified essential hypertension documented in this encounter Additional Health Concerns Assessment Noted Time PHQ-9 Depression Total Score: 16 023 9:50 AM EDT documented as of this encounter
--- OUTSIDE RECORDS SUMMARY | 2024-11-23 13:57 | XMS_ITS | Encounter Summary ---
Author Organization [employer] Address [address] [facility] 7t [place] [address] Care Team Providers Care Educational Institution President Name Role Phone Unavailable Primary Care Provider Unavailabl e Reason for Visit * Reason Comments Med Refill Encounter Details Date Type Department Care Team ([facility] st Contact Info) Description 04/28/2024 Refill [facility] MEDICINE 230 [place], [place] [phone] Name, MD Al 230 [place], [place] [phone] Social History Tobacco Use Types Packs/Day Years [...] 8.6( 10:06 AM EDT) No Odilia Carrasco, Kiok Note: Achieve A1c goal of <7.5% in the next three months documented as of this encounter Visit Diagnoses Not on filedocumented in this encounter Additional Health Concerns Assessment Noted Time PHQ-9 Depression Total Score: 16 023 9:50 AM EDT documented as of this encounter
--- OUTSIDE RECORDS SUMMARY | 2024-11-23 13:57 | XMS_ITS ---
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 Generated for Gilberti sarah/Sagrario/eTransmitting on:?11/23/2024 01:57 PM EDT
--- OUTSIDE RECORDS SUMMARY | 2024-11-23 13:57 | XMS_ITS | Encounter Summary ---
Author Organization [employer] Address [address] [facility] 7t [place] [address] Care Team Providers Care Control Engineer Name Role Phone Unavailable Primary Care Provider Unavailabl e Reason for Visit * Reason Comments Med Refill Encounter Details Date Type Department Care Team ([facility] st Contact Info) Description 06/10/2024 Refill [facility] [address] [place], [place] [phone] Name, MD Al 230 [place], [place] [phone] Type 2 diabetes mellitus with hyperglycemia, with long-term current use of insulin ([facility]); Essential hypertension Social History Tobacco Use Types [...] Hemoglobin A1c < 7.5 Result Component 8.6( 3 10:06 AM EDT) No Odilia Carrasco, PharmWinnie Note: Achieve A1c goal of <7.5% in the next three months documented as of this encounter Visit Diagnoses Diagnosis Type 2 diabetes mellitus with hyperglycemia, with long-term current use of insulin ([facility]) Essential hypertension Unspecified essential hypertension documented in this encounter Additional Health Concerns Assessment Noted Time PHQ-9 Depression Total Score: 16 023 9:50 AM EDT documented as of this encounter
--- OUTSIDE RECORDS SUMMARY | 2024-11-23 13:57 | XMS_ITS | Encounter Summary ---
Author Organization [employer] Address [address] [facility] 7t [place] [address] Care Team Providers Care Senior Java Software Developer Name Role Phone Unavailable Primary Care Provider Unavailabl e Reason for Visit * Reason Onset Date Comments Prior Authorization 02/04/2024 Encounter Details Date Type Department Care Team ([facility] st Contact Info) Description 02/04/2024 Telephone [facility] MEDICINE 230 [place], [place] [phone] Name, MD Al 230 [place], [place] [phone] Prior Authorization Social History Tobacco Use Types Packs/Day Years [...] AM EDT documented as of this encounter Miscellaneous Notes * Telephone Encounter - Edgar Vegas RN - 02/05/2024 1:48 PM EDT T/C to [facility] pharmacy for CGM PA. Pt. Was prescribe CGM last time in 12/2022. Pt. Is asking for CGM sensor, when called to [facility] pharmacy , pharmacy states CGM rx came from [place] [facility] [place] RN try to call pt. Through [facility] Medical interpreters id - [id number] To gather more information for CGM and tomake sure if pt. Is seeing another PCP at another office, pt. Has to sign the form at [facility], so [facility] can inactivate pt.'s chart. No answer. Not able to LVM. RN also called on [phone] Carolina Cho MD office, not able to speak with staff of Carolina Cho MD. Senior Data Mining Analyst ask to give details to send message to PCP team. * Telephone Encounter - Shelly Silveira - 02/04/2024 3:53 PM EDT TC from pt calling stating need a PA for Freestyle 2 sensor. Pt has been 2 weeks without sensor. PCP DR. Vu documented in this encounter Plan of Treatment Not on file documented as of this encounter Goals Goal Patient Goal Type Associated Problems Recent Progress Patient-Stated? Author Blood Pressure < 140/90 Blood Pressure 130/70(2023 9:04 AM EST) No Odilia Carrasco PharmD Note: Maintain BP at goal of < 140/90 mmHg over the next 3 months. Hemoglobin A1c < 7.5 Result Component 8.6( 3 10:06 AM EDT) No Odilia Carrasco PharmD Note: Achieve A1c goal of <7.5% in the next three months documented as of this encounter Visit Diagnoses Not on filedocumented in this encounter Additional Health Concerns Assessment Noted Time PHQ-9 Depression Total Score: 16 023 9:50 AM EDT documented as of this encounter
--- OUTSIDE RECORDS SUMMARY | 2024-11-23 13:57 | XMS_ITS | Encounter Summary ---
Author Organization [employer] Address [address] [place] [address] 7t [place] [address] Care Team Providers Care Landscape Contractor Name Role Phone Name, Al EMERSON Primary Care Provider [phone] Encounter Details Date Type Department Care Team (Late st Contact Info) Description 01/05/2023 Abstract [facility] MEDICINE 230 [place], [place] [phone] Name, MD Al 230 [place], [place] [phone] Social History Tobacco Use Types Packs/Day Years Used Date Smoking Tobacco: Former Cigarettes Smokeless Tobacco: Never Comments:Quit at approx .age 19, >50 yo ago Alcohol Use Standard Drinks/Week Comments Not Currently 0 (1 standard drink = 0.6 oz pure alcohol) consumes on occasions, 1-2x per year Depression Answer Date Recorded Patient Health Questionnaire-9 Score 16 12/24/2022 Depression Answer Date Recorded Patient Health Questionnaire-2 Score 4 12/24/2022 Sex and Gender Information Value Date Recorded Sex Assigned at Male 05/26/2022 10:15 AM EDT Legal Sex Male 10:15 AM EDT Gender Identity Male 05/26/2022 10:15 AM EDT Sexual Orientation Straight 05/26/2022 10 :15 AM EDT COVID-19 Exposure Response Date Recorded In the last 10 days, have yo u been in contact with someone who was confirmed or suspected to have Coronavirus/COVID-19? No / Unsure 12/24/2022 9:30 AM EDT documented as of this encounter Plan of Treatment Not on file documented as of this encounter Goals Goal Patient Goal Type Associated Problems Recent Progress Patient-Stated? Author Blood Pressure < 140/90 Blood Pressure 130/70(2023 9:04 AM EST) No Odilia Carrasco, PharmD Note: Maintain BP at goal of < 140/90 mmHg over the next 3 months. Hemoglobin A1c < 7.5 Result Component 8.6( 3 10:06 AM EDT) No Odilia Carrasco, PharmD Note: Achieve A1c goal of <7.5% in the next three months documented as of this encounter Procedures Procedure Name Priority Date/Time Associated Diagnosis Comments COLONOSCOPY Routine 01/05/2015 1:42 PM EDT documented in this encounter Results * Colonoscopy (01/05/2015 1:42 PM EDT) Colonoscopy Normal Normal Narrative Keiry Teresita - 01/05/2015 1:42 PM EDT Recommended 5 year follow up Historical Provider HEALTH MAINTENANCE Final Result documented in this encounter Visit Diagnoses Not on filedocumented in this encounter Additional Health Concerns Assessment Noted Time PHQ-9 Depression Total Score: 16 023 9:50 AM EDT documented as of this encounter Care Teams Landscape Contractor Relationship Specialty Start Date End Date Name, MD Al [address] [place] [address] PCP - General Family Medicine 06/27/19 11/09/23 documented as of this encounter
--- OUTSIDE RECORDS SUMMARY | 2024-11-23 13:57 | XMS_ITS | Encounter Summary ---
Author Organization [employer] Address [address] [facility] 7t [place] [address] Care Team Providers Care Tax Accountant Name Role Phone Unavailable Primary Care Provider Unavailabl e Reason for Visit * Reason Comments Med Refill Encounter Details Date Type Department Care Team ([facility] st Contact Info) Description 02/05/2024 Refill [facility] MEDICINE [address] [place], [place] [phone] Name, MD Al 230 [place], [place] [phone] Type 2 diabetes mellitus with hyperglycemia, with long-term current use of insulin ([facility]) Social History Tobacco Use Types Packs/Day [...] encounter Miscellaneous Notes * Telephone Encounter - Shelly Silveira - 02/05/2024 3:24 PM EDT Error documented in this encounter Plan of Treatment [...] Component 8.6( 10:06 AM EDT) No Odilia Carrasco PharmD Note: Achieve A1c goal of <7.5% in the next three months documented as of this encounter Visit Diagnoses Diagnosis Type 2 diabetes mellitus with hyperglycemia, with long-term current use of insulin ([facility]) documented in this encounter Additional Health Concerns Assessment Noted Time PHQ-9 Depression Total Score: 16 023 9:50 AM EDT documented as of this encounter
--- OUTSIDE RECORDS SUMMARY | 2024-11-23 13:57 | XMS_ITS | Encounter Summary ---
Author Organization [employer] Address [address] [facility] 7t [place] [address] Care Team Providers Care Front Desk Clerk Name Role Phone Unavailable Primary Care Provider Unavailabl e Reason for Visit * Reason Comments Med Refill Encounter Details Date Type Department Care Team ([facility] st Contact Info) Description 05/29/2024 Refill [facility] MEDICINE [address] [place], [place] [phone] Name, MD Al 230 [place], [place] [phone] Type 2 diabetes mellitus with hyperglycemia, with long-term current use of insulin ([facility]) Social History Tobacco Use Types Packs/Day Years [...] hyperglycemia, with long-term current use of insulin ([facility]) documented in this encounter Additional Health Concerns Assessment Noted Time PHQ-9 Depression Total Score: 16 023 9:50 AM EDT documented as of this encounter
--- OUTSIDE RECORDS SUMMARY | 2024-11-23 13:57 | XMS_ITS | Encounter Summary ---
Author Organization [employer] Address [address] [place] [address] 7t [place] [address] Care Team Providers Care Receptionist Scheduler Name Role Phone Name, Al EMERSON Primary Care Provider [phone] Encounter Details Date Type Department Care Team ([facility] st Contact Info) Description 12/31/2022 Abstract [employer] [address] [place], [place] [phone] Name, MD Al [address] [place], [place] [phone] Social History Tobacco Use Types Packs/Day Years [...] 8.6( 10:06 AM EDT) No Odilia Carrasco, PharmD Note: Achieve A1c goal of <7.5% in the next three months documented as of this encounter Visit Diagnoses Not on filedocumented in this encounter Additional Health Concerns Assessment Noted Time PHQ-9 Depression Total Score: 16 023 9:50 AM EDT documented as of this encounter Care Teams Receptionist Scheduler Relationship Specialty Start Date End Date Name, MD Al [address] [place] [address] PCP - General Family Medicine 06/27/19 11/09/23 documented as of this encounter
--- OUTSIDE RECORDS SUMMARY | 2024-11-23 13:57 | XMS_ITS | Encounter Summary ---
Author Organization [employer] Address [address] [facility] 7t [place] [address] Care Team Providers Care Promotions Coordinator Name Role Phone Unavailable Primary Care Provider Unavailabl e Reason for Visit * Reason Comments Med Refill Encounter Details Date Type Department Care Team ([facility] st Contact Info) Description 05/31/2024 Refill [facility] MEDICINE 230 [place], [place] [phone] Name, MD Al 230 [place], [place] [phone] Type 2 diabetes mellitus with hyperglycemia ([facility]) Social History Tobacco Use Types Packs/Day Years [...] Diagnoses Diagnosis Type 2 diabetes mellitus with hyperglycemia (CMS/HCC) documented in this encounter Additional Health Concerns Assessment Noted Time PHQ-9 Depression Total Score: 16 023 9:50 AM EDT documented as of this encounter
--- OUTSIDE RECORDS SUMMARY | 2024-11-23 13:57 | XMS_ITS | Encounter Summary ---
Author Organization [employer] Address [address] [facility] 7t [place] [address] Care Team Providers Care Bar Machine Operator Production Name Role Phone Unavailable Primary Care Provider Unavailabl e Reason for Visit * Reason Comments Med Refill Encounter Details Date Type Department Care Team ([facility] st Contact Info) Description 04/11/2024 Refill [facility] MEDICINE 230 [place], [place] [phone] Name, MD Al [address] [place], [place] [phone] Essential hypertension Social History Tobacco Use Types [...]
--- OUTSIDE RECORDS SUMMARY | 2024-11-23 13:57 | XMS_ITS | Encounter Summary ---
Author Organization [employer] Address [address] [place] [address] 7t [place] [address] Care Team Providers Care Cargo Checker Name Role Phone Name, Al EMERSON Primary Care Provider [phone] Reason for Visit * Reason Comments Med Refill Encounter Details Date Type Department Care Team ([facility] st Contact Info) Description 03/05/2023 Refill [facility] MEDICINE 230 [place], [place] [phone] Name, MD Al [address] [place], [place] [phone] Essential hypertension Social History Tobacco Use Types [...] suspected to have Coronavirus/COVID-19? No / Unsure 02/03/2023 9:54 AM EDT documented as of this encounter [...] documented as of this encounter Care Teams Cargo Checker Relationship Specialty Start Date End Date Name, MD Al [address] [place] [address] PCP - General Family Medicine 06/27/19 11/09/23 documented as of this encounter
--- OUTSIDE RECORDS SUMMARY | 2024-11-23 13:58 | XMS_ITS | Encounter Summary ---
Author Organization [employer] Address [address] [facility] 7t [place] [address] Care Team Providers Care Hand Nailer Name Role Phone Unavailable Primary Care Provider Unavailabl e Reason for Visit * Reason Comments Med Refill Encounter Details Date Type Department Care Team ([facility] st Contact Info) Description 06/14/2024 Refill [facility] MEDICINE 230 [place], [place] [phone] Name, MD Al 230 [place], [place] [phone] Type 2 diabetes mellitus with hyperglycemia ([facility]) Social History Tobacco Use Types Packs/Day Years [...]
--- OUTSIDE RECORDS SUMMARY | 2024-11-23 13:58 | XMS_ITS | Encounter Summary ---
Author Organization [employer] Address [address] [facility] 7t [place] [address] Care Team Providers Care Bus Dispatcher Interstate Name Role Phone Unavailable Primary Care Provider Unavailabl e Reason for Visit * Reason Comments Med Refill Encounter Details Date Type Department Care Team ([facility] st Contact Info) Description 11/29/2023 Refill [facility] MEDICINE 230 [place], [place] [phone] Name, MD Al 230 [place], [place] [phone] Type 2 diabetes mellitus with hyperglycemia, with long-term current use of insulin ([facility]) Social History Tobacco Use Types [...] hyperglycemia, with long-term current use of insulin ([facility]) documented in this encounter Additional Health Concerns Assessment Noted Time PHQ-9 Depression Total Score: 16 023 9:50 AM EDT documented as of this encounter
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
--- OUTSIDE RECORDS SUMMARY | 2024-11-23 13:58 | XMS_ITS | Encounter Summary ---
Author Organization [facility] [employer] Address [address] [facility] 7t [place] [address] Care Team Providers Care Medical Imaging Specialist Name Role Phone Unavailable Primary Care Provider Unavailabl e Reason for Visit * Reason Comments Med Refill Encounter Details Date Type Department Care Team ([facility] st Contact Info) Description 12/07/2023 Refill [facility] MED[facility] [address] [place], [place] [phone] Name, MD Al [address] [place], [place] [phone] Social History Tobacco Use Types Packs/Day Years [...]
--- OUTSIDE RECORDS SUMMARY | 2024-11-23 13:58 | XMS_ITS | Encounter Summary ---
Author Organization [facility] [employer] Address [address] [facility] 7t [place] [address] Care Team Providers Care Dock Coordinator Name Role Phone Unavailable Primary Care Provider Unavailabl e Reason for Visit * Reason Comments Med Refill Encounter Details Date Type Department Care Team ([facility] st Contact Info) Description 06/16/2024 Refill [facility] [address] [place], [place] [phone] Name, MD Al [address] [place], [place] [phone] Social History Tobacco Use Types Packs/Day Years [...]
--- OUTSIDE RECORDS SUMMARY | 2024-11-23 13:58 | XMS_ITS ---
Author Organization [facility] Address [address] [place] [address] Care Team Providers Care Help Desk Assistant Name Role Phone Soledad EMERSON, [place] Primary Care Provider Unavail Vj Fischer Unavailable [phone] Encounters Encounter Location Date Provider Diagnosis [address] [address] 09/21/2024 Vj Ayala Plan Of Treatment Next Appt Details Provider Name:Vj Ayala , 12/12/2024 10:00:00 AM, [address] [place] [address], [place], [address], Progress Notes * Shwetha LEVYoDOB:[birth year] (74 yo M)Acc No.[id number]:09/21/2024 Progress Notes Patient:Basim DAVIS Provider:?Vj Ayala DPM :1950???Age:74 Y???Sex:Male Kit e:09/21/2024 Address:[address] [place], [place] [id number] Pcp:Carolina Rowe MD Subjective: * Chief Complaints: * ??? * Medical History:? Objective: * Vitals:? Assessment: Plan: * Treatment: * Images: * The named appointment provid er may or may not be the originator of this progress note, and it is not deemed complete until electronically signed by the appointment provider. Sign off status: Pending * Provider:?Vj Ayala DPM Date:?2024 Generated for Regla smith/Sagrario/eTransmitting on:?11/23/2024 01:58 PM EDT
--- OUTSIDE RECORDS SUMMARY | 2024-11-23 13:58 | XMS_ITS | Encounter Summary ---
Author Organization [facility] Address [address] [facility] 7t [place] [address] Care Team Providers Care Clean In Places Operator Name Role Phone Name, Al EMERSON Primary Care Provider [phone] Odilia Carrasco PharmD Unavailable [phone] Encounter Details Date Type Department Care Team (Late st Contact Info) Description 12/25/2022 Orders Only [facility] 230 [place], [place] [phone] Mohsen Becker MD 230 [place], [place] [phone] Social History Tobacco Use Types Packs/Day Years [...] documented as of this encounter Care Teams Clean In Places Operator Relationship Specialty Start Date End Date Name, MD Al [address] [place] [address] PCP - General Family Medicine 06/27/19 11/09/23 Odilia Carrasco PharmD [address] [place] [address] Pharmacist Internal Medicine 05/27/22 12/28/22 documented as of this encounter
--- OUTSIDE RECORDS SUMMARY | 2024-11-23 13:58 | XMS_ITS ---
Author Organization [facility] Address [address] [place] [address] Care Team Providers Care Cafeteria Operator Name Role Phone Soledad EMERSON, [place] Primary Care Provider Unavail able Vj Ayala Unavailable [phone] REASON FOR VISIT r/s BUSINESS TRANSFORMATION CONSULTANT 09/21 Encounters Encounter Location Date Provider Diagnosis [facility] [address] [place] [address] 09/19/2024 Vj Ayala Plan Of Treatment Next Appt Details Provider Name:Vj Ayala , 12/12/2024 10:00:00 AM, [address] [facility], [place] [address], [place], [address], Progress Notes * Josue SAINIOB:[birth year] (74 yo M)Acc No.[id number]:09/19/2024 Patient:?Basim SAINI :1950???Age:74 Y???Sex:Male Address:[address] [place] [address], [address] * true * Date:? Generated for Gilberti sarah/Sagrario/eTransmitting on:?11/23/2024 01:58 PM EDT
--- OUTSIDE RECORDS SUMMARY | 2024-11-23 13:58 | XMS_ITS | Encounter Summary ---
Author Organization [facility] Address [address] [facility] 7t [place] [address] Care Team Providers Care Wheel Molder Name Role Phone Name, Al EMERSON Primary Care Provider [phone] Reason for Visit * Reason Comments Med Refill Encounter Details Date Type Department Care Team ([facility] st Contact Info) Description 06/15/2023 Refill [facility] [address] [place] [address] Name, MD Al [address] [place], [place] [phone] Social History Tobacco Use Types Packs/Day Years [...] documented as of this encounter Care Teams Wheel Molder Relationship Specialty Start Date End Date Name, MD Al [address] [place] [address] PCP - General Family Medicine 06/27/19 11/09/23 documented as of this encounter
--- OUTSIDE RECORDS SUMMARY | 2024-11-23 13:58 | XMS_ITS | Encounter Summary ---
Author Organization [facility] Address [address] [place] [address] 7t [place] [address] Care Team Providers Care Switchbox Assembler Name Role Phone Name, Al EMERSON Primary Care Provider [phone] Reason for Visit * Reason Onset Date Comments reuqesting call 02/04/2023 Encounter Details Date Type Department Care Team (Late st Contact Info) Description 02/04/2023 Telephone [facility] MED[facility]INE 230 [place], [place] [phone] Name, MD Al [address] [place] [address] reuqesting call Social History Tobacco Use Types Packs/Day Years [...] Telephone Encounter - Edgar Vegas RN - 02/06/2023 3:10 PM EDT T/C to Mar[facility] to inform that form was sent return on 12/30/2022. * Telephone Encounter - Bridgett Ambrocio - 02/04/2023 11:50 AM EDT Tc from marge with S requesting status on orders for VNA services. Please contact marge at [phone] Fax number: [phone] documented in this encounter Plan of Treatment [...] documented as of this encounter Care Teams Switchbox Assembler Relationship Specialty Start Date End Date Name, MD Al [address] [place] [address] PCP - General Family Medicine 06/27/19 11/09/23 documented as of this encounter
--- OUTSIDE RECORDS SUMMARY | 2024-11-23 13:58 | XMS_ITS | Encounter Summary ---
Author Organization [employer] Address [address] [facility] 7t [place] [address] Care Team Providers Care Card Grinder Name Role Phone Unavailable Primary Care Provider Unavailabl e Reason for Visit * Reason Comments Med Refill Encounter Details Date Type Department Care Team ([facility] st Contact Info) Description 07/25/2024 Refill [facility] 230 [place], [place] [phone] Name, MD Al 230 [place], [place] [phone] Type 2 diabetes mellitus with hyperglycemia ([facility]) Social History Tobacco Use [...]
--- OUTSIDE RECORDS SUMMARY | 2024-11-23 13:58 | XMS_ITS | Encounter Summary ---
Author Organization [employer] Address [address] [facility] 7t [place] [address] Care Team Providers Care Manager Information Name Role Phone Unavailable Primary Care Provider Unavailabl e Reason for Visit * Reason Comments Med Refill Encounter Details Date Type Department Care Team ([facility] st Contact Info) Description 06/13/2024 Refill [facility] [address] [place], [place] [phone] Name, MD Al [address] [place] [address] Essential hypertension; Type 2 diabetes mellitus with hyperglycemia, with long-term current use of insulin ([facility]) Social History Tobacco Use Types Packs/Day [...] Diagnoses Diagnosis Essential hypertension Unspecified essential hypertension Type 2 diabetes mellitus with hyperglycemia, with long-term current use of insulin ([facility]) documented in this encounter Additional Health Concerns Assessment Noted Time PHQ-9 Depression Total Score: 16 023 9:50 AM EDT documented as of this encounter
--- OUTSIDE RECORDS SUMMARY | 2024-11-23 13:58 | XMS_ITS | Encounter Summary ---
Author Organization [employer] Address [address] [facility] 7t [place] [address] Care Team Providers Care Compensation Agent Name Role Phone Unavailable Primary Care Provider Unavailabl e Reason for Visit * Reason Comments Med Refill Encounter Details Date Type Department Care Team ([facility] Contact Info) Description 06/14/2024 Refill [facility] [address] [place] [address] Merle Irwin MD [address] [place], [place] [phone] Social History Tobacco Use Types Packs/Day Years [...]
== END 2024-11-23 13:58 | disposition home or self-care (01) ==
LOC: HO.HMCH 12:44
PROVIDERS: PCP Internal Medicine; Visit Provider Internal Medicine
DX: E11.65 Type 2 diabetes mellitus with hyperglycemia (principal); Z79.4 Long term (current) use of insulin; E11.3293 Type 2 diabetes mellitus with mild nonproliferative diabetic retinopathy without macular edema, bilateral; F32.0 Major depressive disorder, single episode, mild; M79.672 Pain in left foot; L50.9 Urticaria, unspecified; R31.29 Other microscopic hematuria; I10 Essential (primary) hypertension; E78.5 Hyperlipidemia, unspecified

== ENCOUNTER → 2024-11-23 12:44 | Outpatient (BNVA) | payer OTHER, SELFPAY | PROVIDERS: PCP Internal Medicine; Visit Provider Internal Medicine | DX: E11.65 Type 2 diabetes mellitus with hyperglycemia (principal); F32.0 Major depressive disorder, single episode, mild; M79.672 Pain in left foot; L50.9 Urticaria, unspecified; R31.29 Other microscopic hematuria; I10 Essential (primary) hypertension; E11.3293 Type 2 diabetes mellitus with mild nonproliferative diabetic retinopathy without macular edema, bilateral; E78.5 Hyperlipidemia, unspecified; Z79.4 Long term (current) use of insulin | CPT/HCPCS: 83036; 96127; 99212 ==

== ENCOUNTER 2024-11-25 09:40 | Outpatient (REF) | payer OTHER, SELFPAY ==
--- NOTE | ~2024-11-25 | XR_ITS ---
EXAMINATION: XR FOOT 1-2 VIEWS LEFT HISTORY: M79.672 - Pain in left foot COMPARISON: There are no prior studies available for comparison. FINDINGS: Three views of the left foot are submitted. Osseous mineralization is normal. There is no fracture or dislocation. The joint spaces are preserved. The soft tissues are unremarkable. XR/XR foot LT 2V IMPRESSION: Unremarkable examination of the left foot. Electronically signed by: Raul Stapleton MD 11/25/2024 02:27 PM EDT
--- OUTSIDE RECORDS SUMMARY | 2024-11-25 10:29 | XMS_ITS | Patient Health Record ---
Author Organization [facility] Address [address] [place] [address] Care Team Providers Care Lumber Puller Name Role Phone Soledad EMERSON, [place] Primary Care Provider Unavail Vj Fischer Unavailable [phone] Reason For Referral No Information Encounters Encounter Location Date Provider Diagnosis [facility] [address] [place] [address] 06/09/2024 Vj Ayala [address] [address] 09/19/2024 Vj Ayala Plan Of Treatment Next Appt Details Provider Name:Vj Ayala , 12/12/2024 10:00:00 AM, [address], [place], [address], Insurance Providers Payer Name Payer Address Payer Phone Subscriber Number Group Number Insured Name Patient Relationship to Insured Coverage Start Date Coverage End Date [facility] [address] [place] [address] [id number] Basim Saini Self - patient is the insured
--- OUTSIDE RECORDS SUMMARY | 2024-11-25 10:30 | XMS_ITS ---
Author Organization [facility] Address [address] [place] [address] Care Team Providers Care Pellet Preparation Operator Name Role Phone Soledad EMERSON, [place] Primary Care Provider Unavail Vj Fischer Unavailable [phone] Encounters Encounter Location Date Provider Diagnosis [address] [address] 09/21/2024 Vj Ayala Plan Of Treatment Next Appt Details Provider Name:Vj Ayala , 12/12/2024 10:00:00 AM, [address] [place] [address], [place], [address], Progress Notes * Shwetha LEVYoDOB:[birth year] (74 yo M)Acc No.[id number]:09/21/2024 Progress Notes Patient:Basim DAVIS Provider:?Vj Ayala DPM :1950???Age:74 Y???Sex:Male Kit e:09/21/2024 Address:[address] [place], [place] [phone] Pcp:Carolina Rowe MD Subjective: * Chief Complaints: [...] Ayala DPM Date:?2024 Generated for Regla smith/Sagrario/eTransmitting on:?11/25/2024 10:29 AM EDT
--- OUTSIDE RECORDS SUMMARY | 2024-11-25 10:30 | XMS_ITS ---
Author Organization [facility] Address [address] [place] [address] Care Team Providers Care Information Coder Name Role Phone Soledad EMERSON, [place] Primary Care Provider Unavail able Vj Ayala Unavailable [phone] REASON FOR VISIT r/s SEED TRUCKER 09/21 Encounters Encounter Location Date Provider Diagnosis [facility] [address] [place] [address] 09/19/2024 Vj Ayala Plan Of Treatment Next Appt Details Provider Name:Vj Ayala , 12/12/2024 10:00:00 AM, [address] [facility], [address] [address], [place], [address], Progress Notes * Josue SAINIOB:[birth year] (74 yo M)Acc No.[id number]:09/19/2024 Patient:?Basim SAINI :1950???Age:74 Y???Sex:Male Address:[address] [place] [address], [address] * true * Date:? Generated for Gilberti sarah/Sagrario/eTransmitting on:?11/25/2024 10:29 AM EDT
--- OUTSIDE RECORDS SUMMARY | 2024-11-25 10:30 | XMS_ITS ---
Author Organization [facility] Address [address] [place] [address] Care Team Providers Care Pediatric Geneticist Name Role Phone Soledad EMERSON, [place] Primary Care Provider Unavail able Vj Ayala Unavailable [phone] REASON FOR VISIT CURB BUILDER Encounters Encounter Location Date Provider Diagnosis [facility] [address] [place] [address] 06/09/2024 Vj Ayala Plan Of Treatment Next Appt Details Provider Name:Vj Ayala , 12/12/2024 10:00:00 AM, [address] [facility], [address] [address], [place], [address], Progress Notes * Shwetha SAINIoDOB:[birth year] (74 yo M)Acc No.[id number]:06/09/2024 Patient:?Basim SAINI :1950???Age:74 Y???Sex:Male Address:[address] [place] [address], [address] * true * Date:? Generated for Gilberti sarah/Sagrario/eTransmitting on:?11/25/2024 10:29 AM EDT
[2024-11-25 11:21] LABS: Alanine Aminotransferase 25 U/L (0-40); Albumin Level 4.4 g/dL (3.5-5.0); Alkaline Phosphatase 83 U/L (39-117); Anion Gap 14 (12-20); Aspartate Amino Transferase 18 U/L (5-37); Bilirubin Total 0.3 mg/dL (0.0-1.0); Blood Urea Nitrogen 12 mg/dL (9-16); Calcium 9.2 mg/dL (8.4-10.2); Carbon Dioxide 31 mmol/L (22-29); Chloride 101 mmol/L (96-108); Cholesterol 122 mg/dL (<200); Estimated Glomerular Filt Rate > 60; Glucose Fasting 127 mg/dL (60-99); HDL Cholesterol 39 mg/dL (>40); LDL Cholesterol Calculated 64 mg/dL (<100); Potassium 4.4 mmol/L (3.3-5.1); Sodium 142 mmol/L (135-145); Total Protein 6.9 g/dL (6.5-8.0); Triglycerides 95 mg/dL (<150)
[2024-11-25 11:38] LABS: Vitamin D 25-OH Total 47.3 ng/mL (>30)
[2024-11-25 12:12] LABS: Creatinine Urine 100.82 mg/dL; Microalbum/Creatinine Ratio Ur 5.9 ug/mg cr (<30)
== END 2024-11-25 09:41 | disposition home or self-care (01) ==
LOC: HO.XRAY 09:40
PROVIDERS: PCP Internal Medicine; Visit Provider Internal Medicine
DX: M79.672 Pain in left foot (principal); E55.9 Vitamin D deficiency, unspecified; E11.9 Type 2 diabetes mellitus without complications; E78.5 Hyperlipidemia, unspecified
CPT/HCPCS: 36415; 73620; 80053; 80061; 82043; 82306; 82570

== ENCOUNTER → 2024-11-25 10:09 | Outpatient (BNV) | payer OTHER, SELFPAY | PROVIDERS: PCP Internal Medicine; Visit Provider Radiology Diagnostic Radiology | DX: M79.672 Pain in left foot (principal) | CPT/HCPCS: 73620 ==

== ENCOUNTER 2025-02-01 08:32 | Outpatient (AMB) | payer OTHER, SELFPAY ==
--- OUTSIDE RECORDS SUMMARY | 2025-02-01 08:45 | XMS_ITS | Patient Health Record ---
Author Organization [facility] Address [address] [place] [address] Care Team Providers Care Cloth Cutting Inspector Name Role Phone Nury Summers Primary Care Provider UnavailVj Jay Unavailable [phone] Soledad EMERSON, [place] Unavailable Unavailable Allergies No Known Allergies Results Component Value Reference Range Notes HEMOGLOBIN A1C (GLYCOHEMOGLO BIN) Reviewed date:12/12/2024 10:32:30 AM Interpretation: Performing Lab: Notes/Report: HEMOGLOBIN A1C % (HH) 6.5 Reason For Referral No Information Medications Medication SIG (Take, Route, Frequency, Duration) Notes Start Date End Date Status Cromolyn Sodium 4 % INSTILL 1 DROP INTO THE AFFECTED EYE(S) FOUR TIMES DAILY Ophthalmic; Duration: 25 Days Active metFORMIN HCl 1000 MG TAKE 1 TABLET BY M OUTH TWICE DAILY IN THE MORNING AND IN THE EVENING Oral; Duration: 90 Days Active buPROPion HCl ER (XL) 150 MG TAKE 1 TABLET BY MOUTH EVERY MORNING Oral; Duration: 30 Days Active Omeprazole 20 MG Oral; Duration: 30 Days Active Pravastatin Sodium 40 MG TAKE 1 TABLET B Y MOUTH EVERY EVENING Oral; Duration: 30 Days Active Extra Depth Orthopedic Shoes (1 Pair) with Customized Heat Molded Multidensity Innersoles (3 Pair) as directed Dx: NIDDM (E11.9), Hammertoe Foot Deformity (M20.41,M20.42), Preulcerative Skin Lesion(s) (L85.1) 12/12/2024 Active Social History Tobacco Use: Social History Observation Description Date Details (start date - stop date) Never Smoker NA - NA Tobacco Control (Standard) Question Answer Notes Tobacco use: Nonsmoker Additional Findings: Tobacco non-user Current no nsmoker AUDIT-C (Standard) Question Answer Notes Did you have a drink containing alcohol in the p ast year? No Points 0 Interpretation Negative Problems Problem Type SNOMED Code ICD Code Onset Dates Problem Status W/U Status Risk Notes Problem Acquired hammer toe of right foot (728780803414912 5) Other hammer toe(s) (acquired), right foot (M20.41) Active confirmed Problem Acquired hammer toe of left foot (628657832796971 3) Other hammer toe(s) (acquired), left foot (M20.42) Active confirmed Problem Type II diabetes mellitus without complication (852340311) Type 2 diabetes mellitus without complication (E11.9) Active confirmed Vital Signs Height 5ft in 12/12/2024 Weight 167 lbs 12/12/2024 BMI 32.61 kg/m2 12/12/2024 Procedures Procedure Date Ordered Date Performed Result Body Sit e 64575-WHOQQNW NAIL, 6 OR MORE 12/12/2024 N/A Encounters Encounter Location Date Provider [facility] [address] [address] 12/12/2024 Vj Ayala Pain in right toe(s) M79.674 ; Tinea unguium B35.1 ; Pain in left toe(s) M79.675 ; Type 2 diabetes mellitus without complication E11.9 ; Other hammer toe(s) (acquired), right foot M20.41 and Other hammer toe(s) (acquired), left foot M20.[facility] [address] 06/09/2024 [facility] [address] 09/19/2024 Vj Ayala Assessments Encounter Date Diagnosis (ICD Code) Assessment Notes Treatment Notes Treatment Clinical Notes Section Notes 12/12/2024 Pain in right toe(s) (ICD-10 - M79.674) 12/12/2024 Tinea unguium (ICD-10 - B35.1) 12/12/2024 Pain in left toe(s) (ICD-10 - M79.675) 12/12/2024 Type 2 diabetes mellitus without complication (ICD-10 - E11.9) 12/12/2024 Other hammer toe(s) (acquired), right foot (ICD-10 - M20.41) Patient Educated with: DIABETIC FOOT CARE INSTRUCTIONS.p df (DIABETIC FOOT CARE INSTRUCTIONS.p df) 12/12/2024 Other hammer toe(s) (acquired), left foot (ICD-10 - M20.42) Plan Of Treatment Pending Test Test Name Order Date 34075-HKQMSCE NAIL, 6 OR MORE 12/12/2024 Insurance Providers Payer Name Payer Address Payer Phone Subscriber Number Group Number Insured Name Patient Relationship to Insured Coverage Start Date Coverage End Date [id number] [address] [address] [place] [address] [id number] Basim Saini Self - patient is the insured Medical (General) History Medical History History ICD Code Chicken pox Diabetes mellitus Reflux Hypercholesterolemia Surgical History Surgery Date(Month/Year) cataract surgery 2014
--- OUTSIDE RECORDS SUMMARY | 2025-02-01 08:45 | XMS_ITS | Encounter Summary ---
Author Organization [employer] Address [address] [place] [address] [address] [place] [address] Care Team Providers Care Co Founder And Chairman Name Role Phone Name, Al EMERSON Primary Care Provider [phone] Encounter Details Date Type Department Care Team ([facility] st Contact Info) Description 12/31/2022 Abstract [employer] [address] [place], [place] [phone] Name, MD Al [address] [place], [place] [phone] Social History Tobacco Use Types Packs/Day Years [...] Author Blood Pressure < 140/90 Blood Pressure 130/70(02/29/ 2024 9:04 AM EST) No Odilia Carrasco, JackieD Note: Maintain BP at goal of < [...] documented as of this encounter Care Teams Co Founder And Chairman Relationship Specialty Start Date End Date Name, MD Al [address] [place] [address] PCP - General Family Medicine 06/27/19 11/09/23 documented as of this encounter
--- OUTSIDE RECORDS SUMMARY | 2025-02-01 08:45 | XMS_ITS | Patient Health Record ---
Author Organization [facility] Address [address] [place] [address] Care Team Providers Care Brewery Technician Name Role Phone Pam Yuan Primary Care Provider Raul Tillman [phone] Reason For Referral No Information Medications Medication SIG (Take, Route, Frequency, Duration) Notes Start Date End Date Status oxyBUTYnin Chloride 5 MG 1 tablet Orally Once a day Active Aspir-81 81 MG 1 tablet Orally Once a day Active Clotrimazole 1 % 1 application to aff ected area Externally Twice a day Active metFORMIN HCl 1000 MG 1 tablet with meal s Orally Once a day Active Pain & Fever Extra Strength 500 MG 1 tablet as needed Orally every 6 hrs Active Calcium + D3 600-200 MG-UNIT Orally Active Proventil HFA 108 (90 Base) MCG/ACT 2 puffs as needed Inhalation every 4 hrs Active Colyte w Flavor Packs 240 GM as directed Orally as directed for 1 day(s) 11/08/2014 Active Multi Vitamin/Minerals Orally Active DocQLace 100 MG 1 capsule as needed Orally Once a day Active Lantus 100 UNIT/ML Subcutaneous Active Sertraline HCl 100 MG 1 tablet Orally Once a day Active Pravastatin Sodium 40 MG 1 tablet Orally Once a day Active Loratadine 10 MG 1 tablet Orally Once a day Active Lisinopril 5 MG 1 tablet Orally Once a day Active Problems Problem Type SNOMED Code ICD Code Onset Dates Problem Status W/U Status Risk Notes Problem Colon cancer screening (319240096) Colon cancer screening (V76.51) Active confirmed Problem History of adenomatous polyp of colon (850735031) History of adenomatous polyp of colon (V12.72) Active confirmed Problem Long-term use of aspirin therapy (V58.66) Active confirmed Plan Of Treatment Future Test Test Name Order Date COLONOSCOPY 11/07/2014 Insurance Providers Payer Name Payer Address Payer Phone Subscriber Number Group Number Insured Name Patient Relationship to Insured Coverage Start Date Coverage End Date [facility] [address] [place] [address] [id number] DENISSE LEVY Self - patient is the insured Medical (General) History Medical History History ICD Code Screening colonoscopy 12-5-2 008--2 tubular adenomas removed--he was also noted to have a moderate amount of sigmoid diverticulosis and internal hemorrhoids IDDM HTN Elevated cholesterol Denies IA,CVA,renal disease Asthma Surgical History Surgery Date(Month/Year) Right knee arthroscopy
--- NOTE | 2025-02-01 08:57 | A.OFFVIS_ITS ---
Intake Visit Reasons: microscopic hematuria Intake Note: New Patient presents for initial visit for microscopic hematuria Urology Medications: tamsulosin Blood Thinner: aspirin Smoker: Former; over 30yrs ago Irrigation Service Technician Required: Yes Irrigation Service Technician Name: Donell [id number] Accompanied by: Self / Same As Patient Allergies empagliflozin (From [employer]) Adverse Reaction (Intermediate, Verified 02/01/25 09:24) fungal infection in penis Medication List - Last Reconciled 02/01/25 by JENNIFER Salamanca-ELEAZAR acetaminophen 650 mg (2 x 325 mg) PO Q6H PRN aspirin 81 mg PO BEDTIME blood pressure test kit-large As directed bupropion HCl XL 150 mg PO QAM 90 days calcium carbonate-vitamin D3 600 mg-5 mcg (200 unit) 1 tab PO BID 90 days clotrimazole-betamethasone 1-0.05 % 1 appl topical BID PRN 2 weeks cromolyn 4% 1 drp ophthalmic (eye) QID 30 days dulaglutide (Trulicity) 0.75 mg (0.5 mL) subcut QWEEK 4 weeks flash glucose sensor (FreeStyle Júnior 2 Sensor kit) USE DIRECTED EVERY 14 DAYS [free style lite meter As directed] insulin glargine (Lantus Solostar U-100 Insulin) 35 units (0.35 mL) subcut BEDTIME 90 days lancets As directed lisinopril 10 mg PO QAM metformin 1,000 mg PO BID 90 days methocarbamol 1,000 mg (2 x 500 mg) PO Q8H 3 days multivitamin 1 tab PO QAM 90 days omeprazole 20 mg PO DAILY 90 days pravastatin 40 mg PO BEDTIME tamsulosin 0.4 mg PO QAM HPI Comments Details: Basim is a 74-year-old Mexican-speaking male patient of Dr. Nesbitt. He has a past medical history of nicotine dependence, diabetes, and hypertension. He presents to the office today as a new patient for gross hematuria, urge incontinence, and urinary dribbling. In discussion with the patient today he reports having seeked emergency room care services through an outside ER for gross hematuria. In review of patient's chart it appears CT abdomen and pelvis with IV contrast 11/18 noted the kidneys and ureters have no hydronephrosis, and renal calculi, or suspicious masses. The bladder is normal. He reports being told to follow-up with his PCP at which time recommendations were made for urology referral. He does report a previous history of nicotine dependence for 2 years. He reports between the ages of 17 to 19 years old he smoked approximately 1 pack of cigarettes per day. He denies any known workplace chemical exposure. He continues to experience intermittent episodes of gross hematuria. In office urinalysis results reviewed with the patient today no microscopic hematuria noted. We did discussed potential causes of gross hematuria and further treatment options and risks and benefits of these treatment options. Also reports noting urge incontinence and urinary dribbling. We did discussed potential causes of these urological issues as well as further treatment options and risks and benefits of these treatment options. He reports being on Flomax for quite some time and feels this has been helpful in episodes of urinary urgency and frequency he had been experiencing. In review of patient's chart it appears PSA 11/17 1.2. He otherwise denies dysuria, foul smelling urine, changes to urinary stream, flank pain, fever, and or chills. All questions were answered [facility] Medical History History of nicotine dependence Diabetes Hypertension Surgical History History of arthroplasty of right knee Family History Mother Brain cancer Father Diabetes Social History Housing: Apartment Alcohol intake: former Patient Tobacco Use Status: Former Tobacco user e-Cigarette/Vaping Use: Never Used Second Hand Smoke Exposure: No service: No Current occupational status: unemployed Current occupation: right handed Cognitive needs: Yes Hearing needs: No Vision needs: No Review of Systems Const All systems reviewed & are unremarkable except as noted in HPI and below Physical Exam Const General: cooperative, comfortable, no acute distress, well developed, alert and awake Nutritional Appearance: overweight Orientation/consciousness: patient oriented x3 Limitations: language barrier HEENT Head: Yes normal to inspection, Yes normocephalic and Yes atraumatic Ears: hearing grossly normal bilaterally Eyes General: appearance normal, both eyes and all related structures Neck Neck: Yes normal visual inspection and Yes trachea midline Chest Chest palpation & inspection: normal inspection of the chest Resp Effort & Inspection: normal respiratory effort and able to speak in complete sentences Cardio Rate: regular rate GI Inspection: Yes normal to inspection General: Yes no CVA tenderness Back/Spine/Pelvis Back: no CVA tenderness Skin General skin exam: no rashes or lesions noted Neuro General: patient oriented x3 Extrem General: Yes normal to inspection Psych Appearance: grossly normal and well kempt Mental Status: mental status grossly normal Speech and movement: Normal speech and movement present and Clear speech present Affect: normal affect Attitude: cooperative Thought process: Normal thought process present Thought content: Normal thought content present Insight: Fair insight present (Psych) Judgement: Fair judgement present (Psych) Results AMB Urinalysis, Automated UA Leukoctes 0 Damian/uL Last Edit by Teena Martinez [facility] on 02/01/25 09:11 UA Nitrite Last Edit by Teena Martinez [facility] on 02/01/25 09:11 UA Urobilinogen 0.2 mg/dL Last Edit by Teena Martinez [facility] on 02/01/25 09:1 1 UA Protein 0 mg/dL Last Edit by Teena Martinez [facility] on 02/01/25 09:11 UA pH 7.0 Last Edit by Teena Martinez [facility] on 02/01/25 09:11 UA Blood 0 Ricardo/uL Last Edit by Teena Martinez [facility] on 02/01/25 09:11 UA Specific Marydel 1.010 Last Edit by Teena Martinez [facility] on 02/01/25 09: 11 UA Ketone [facility] on 02/01/25 09:11 UA Bilirubin 0 mg/dL Last Edit by Teena Martinez [facility] on 02/01/25 09:11 UA Glucose 0 mg/dL Last Edit by Teena Martinez [facility] on 02/01/25 09:11 Results Reviewed Results Reviewed: Laboratory Last Values Urine pH (Auto) 7.0 02/01/25 09:10 Specific Marydel (Auto) 1.010 02/01/25 09:10 Urine Protein (Auto) 0 mg/dL 02/01/25 09:10 Glucose (UA)(Auto) 0 mg/dL 02/01/25 09:10 Urine Blood (Auto) 0 Ricardo/uL 02/01/25 09:10 Urine Bilirubin (Auto) 0 mg/dL 02/01/25 09:10 Urine Urobilinogen (Auto) 0.2 mg/dL 02/01/25 09:10 Leukocyte Esterase (Auto) 0 Damian/uL 02/01/25 09:10 Assessment & Plan Assessment & Plan (1) Gross hematuria: Code(s): R31.0 - Gross hematuria Category: Medical (2) Urinary incontinence, urge: Code(s): N39.41 - Urge incontinence Category: Medical (3) Urinary dribbling: Code(s): N39.43 - Post-void dribbling Category: Medical Plan In office urinalysis results reviewed with the patient today; as noted above; will send for urine cytology. We discussed pelvic floor exercises to assist with urinary dribbling We discussed healthy bathroom behaviors. Continue Flomax. Will obtain PSA for further assessment evaluation. BUN and creatinine ordered for imaging. Will obtain CT urogram for further assessment evaluation. We discussed potential causes of gross hematuria, urinary dribbling, and urge incontinence; we discussed further interventions to assist with these urological conditions and risks and benefits of these interventions All questions were answered. Follow-up next available in office cystoscopy with imaging and labs to be completed prior; or sooner with any issues, concerns, and or questions. Orders: Orders AMB Urinalysis Automated Today Z13.9 - Encounter for screening, unspecified Urine Cytology Today R31.29 - Other microscopic hematuria Blood Urea Nitrogen Today R39.15 - Urgency of urination Prostate Specific Antigen Today N39.43 - Post-void dribbling, R31.0 - Gross hematuria CT urogram Today R31.0 - Gross hematuria Creatinine Today R39.15 - Urgency of urination Patient Instructions: The patient had an opportunity to ask questions regarding the treatment plan. All questions were answered. Physical exam, labs, and imaging were discussed and reviewed in detail. As well as risks, benefits, and discussion of treatment choices. No major barriers to understanding were identified. The patient expressed understanding and agreement with the above treatment plan. The patient was made aware they should contact our office by phone for worsening of their current condition, the appearance of new symptoms, or with any q uestions or concerns. Compliance is encouraged with any medications and follow up testing that is ordered. It is a privilege to be allowed the opportunity to participate in? your urological care.? Again, if you have any questions or concerns If you have any questions or concerns please do not hesitate to contact me. The office is [phone]. This note is constructed using voice recognition software. While every effort has been made to ensure accuracy negative spotter errors may have been included. Yours sincerely, NASIMA Salamanca Coding Level of Care Code New Pt Level 3 (64557) Diagnoses Gross hematuria R31.0 Urinary incontinence, urge N39.41 Urinary dribbling N39.43
== END 2025-02-01 09:31 | disposition home or self-care (01) ==
LOC: HO.HUSH 08:33
PROVIDERS: PCP Internal Medicine; Visit Provider Nurse Practitioner Family
DX: R31.0 Gross hematuria (principal); N39.41 Urge incontinence; N39.43 Post-void dribbling; Z13.9 Encounter for screening, unspecified
CPT/HCPCS: 99203

== ENCOUNTER 2025-02-01 08:32 | Outpatient (REF) | payer OTHER, SELFPAY | END 2025-02-01 08:33 | disposition home or self-care (01) | LOC: HO.LNP 08:32 | PROVIDERS: PCP Internal Medicine; Visit Provider Nurse Practitioner Family | DX: N39.41 Urge incontinence (principal); N39.43 Post-void dribbling; E11.9 Type 2 diabetes mellitus without complications; I10 Essential (primary) hypertension; R31.0 Gross hematuria; R31.29 Other microscopic hematuria; Z13.9 Encounter for screening, unspecified; Z79.899 Other long term (current) drug therapy; Z79.84 Long term (current) use of oral hypoglycemic drugs; Z79.4 Long term (current) use of insulin; Z87.891 Personal history of nicotine dependence | CPT/HCPCS: 81003; 88112; 99202 ==

== ENCOUNTER 2025-04-12 07:42 | Outpatient (AMB) | payer OTHER, SELFPAY ==
--- OUTSIDE RECORDS SUMMARY | 2024-09-21 06:00 | XMS_ITS ---
Author Organization [facility] Address [address] [place] [address] [place] [address] Care Team Providers Care Concrete Fence Builder Name Role Phone Nury Summers Primary Care Provider Unavaila Vj Calixto Unavailable [phone] Soledad EMERSON, [place] Unavailable Unavailable Encounters Encounter Location Date Provider Diagnosis [address] [address] 09/21/2024 Vj Ayala Plan Of Treatment No Information Progress Notes * Shwetha LEVYoDOB:[birth year] (74 yo M)Acc No.[id number]:09/21/2024 Progress Notes Patient: Basim PEPE Provider: Brandy Ayala DPM :1950 A ge:74 Y S ex:Male Date:09/21/2024 Address:[address] [place] [address] [facility] Pcp:Nury Summers Subjective: * Chief Complaints: * * Medical History: Objective: * Vitals: Assessment: Plan: * Treatment: * Images: * The named appointment provid er may or may not be the originator of this progress note, and it is not deemed complete until electronically signed by the appointment provider. Sign off status: Pending * Provider: Brandy Ayala DPM Date: 0 09/21/2024 Generated for Gilberti ng/Faenrikeg/eTransmitting on: 0 04/12/2025 07:48 AM EDT
--- OUTSIDE RECORDS SUMMARY | 2025-04-12 07:47 | XMS_ITS | Encounter Summary ---
Author Organization [employer] Address [address] [facility] 7t [place] [address] Care Team Providers Care Academic Specialist Name Role Phone Unavailable Primary Care Provider Unavailabl e Reason for Visit * Reason Comments Med Refill Encounter Details Date Type Department Care Team ([facility] st Contact Info) Description 01/21/2024 Refill [facility] [address] [place], [place] [phone] Name, MD Al [address] [place] [address] Type 2 diabetes mellitus with hyperglycemia, with long-term current use of insulin ([facility]) Social History Tobacco Use Types Packs/Day Years [...] Author Blood Pressure < 140/90 Blood Pressure 144/77(2024 9:27 AM EDT) No Odilia Carrasco, Kiko Note: Maintain BP at goal of < 140/90 mmHg over the next 3 months. Hemoglobin A1c < 7.5 Result Component 8.6( 10:06 AM EDT) No Odilia Carrasco, Kiko Note: Achieve A1c goal of <7.5% in the next three months documented as of this encounter Visit Diagnoses Diagnosis Type 2 diabetes mellitus with hyperglycemia, with long-term current use of insulin ([facility]) documented in this encounter Additional Health Concerns Assessment Noted Time PHQ-9 Depression Total Score: 16 023 9:50 AM EDT documented as of this encounter
--- OUTSIDE RECORDS SUMMARY | 2025-04-12 07:47 | XMS_ITS | Encounter Summary ---
Author Organization [employer] Address [address] [facility] 7t [place] [address] Care Team Providers Care Tree Wrapper Name Role Phone Unavailable Primary Care Provider Unavailabl e Reason for Visit * Reason Comments Med Refill Encounter Details Date Type Department Care Team ([facility] st Contact Info) Description 01/28/2024 Refill [facility] [address] [place], [place] [phone] Name, MD Al [address] [place], [place] [phone] Social History Tobacco Use Types Packs/Day Years [...]
--- OUTSIDE RECORDS SUMMARY | 2025-04-12 07:47 | XMS_ITS | Encounter Summary ---
Author Organization [employer] Address [address] [place] [address] [address] [place] [address] Care Team Providers Care Scientific Advisor Name Role Phone Name, Al EMERSON Primary Care Provider [phone] Encounter Details Date Type Department Care Team (Late st Contact Info) Description 01/05/2023 Abstract [facility] MEDICINE [address] [place], [place] [phone] Name, MD Al [address] [place], [place] [phone] Social History Tobacco Use Types Packs/Day Years [...] 144/77(2024 9:27 AM EDT) No Odilia Carrasco, PharmD Note: Maintain BP [...] 1:42 PM EDT) Colonoscopy Normal Normal Narrative KeiryTeresita nixon - 01/05/2015 1:42 PM EDT Recommended 5 year follow up Historical Provider HEALTH MAINTENANCE Final Result documented in this encounter Visit Diagnoses Not on filedocumented in this encounter Additional Health Concerns Assessment Noted Time PHQ-9 Depression Total Score: 16 023 9:50 AM EDT documented as of this encounter Care Teams Scientific Advisor Relationship Specialty Start Date End Date Name, MD Al [address] [place] [address] PCP - General Family Medicine 06/27/19 11/09/23 documented as of this encounter
--- OUTSIDE RECORDS SUMMARY | 2025-04-12 07:47 | XMS_ITS | Encounter Summary ---
Author Organization [employer] Address [address] [facility] [address]t [place] [address] Care Team Providers Care Retail Banker Name Role Phone Unavailable Primary Care Provider Unavailabl e Reason for Visit * Reason Comments Med Refill Encounter Details Date Type Department Care Team ([facility] st Contact Info) Description 03/30/2024 Refill [facility] MEDICINE [address] [place], [place] [phone] Name, MD Al [address] [place], [place] [phone] Essential hypertension; Nocturia Social History Tobacco Use [...]
--- OUTSIDE RECORDS SUMMARY | 2025-04-12 07:47 | XMS_ITS | Encounter Summary ---
Author Organization [employer] Address [address] [facility] 7t [place] [address] Care Team Providers Care Bag Patcher Name Role Phone Unavailable Primary Care Provider Unavailabl e Reason for Visit * Reason Comments Med Refill Encounter Details Date Type Department Care Team ([facility] st Contact Info) Description 04/11/2024 Refill [facility] MEDICINE [address] [place], [place] [phone] Name, MD Al [address] [place], [place] [phone] Essential hypertension Social History Tobacco Use Types [...]
--- OUTSIDE RECORDS SUMMARY | 2025-04-12 07:47 | XMS_ITS | Encounter Summary ---
Author Organization [employer] Address [address] [facility] 7 [place] [address] Care Team Providers Care Naphthalene Still Operator Name Role Phone Unavailable Primary Care Provider Unavailabl e Reason for Visit * Reason Onset Date Comments Prior Authorization 02/04/2024 Encounter Details Date Type Department Care Team ([facility] st Contact Info) Description 02/04/2024 Telephone [facility] MEDICINE 230 [place], [place] [phone] Name, MD Al 230 [place] [address] Prior Authorization Social History Tobacco Use Types [...] - 02/05/2024 1:48 PM EDT T/C to [facility] pharmacy for CGM PA. Pt. Was prescribe CGM last time in 12/2022. Pt. Is asking for CGM sensor, when called to [facility] pharmacy , pharmacy states CGM rx came from Dr. Carolina Cho MD( [facility] RN try to call pt. Through [place] interpreters id - [id number] To gather more information for CGM and tomake sure if pt. Is seeing another PCP at another office, pt. Has to sign the form at [facility], so [facility] can inactivate pt.'s chart. No answer. Not able to LVM. RN also called on [phone] Carolina Coh MD office, not able to speak with staff of Carolina Cho MD. Bonsai Tender ask to give details to send message [...] Pressure 144/77(2024 9:27 AM EDT) No Odilia Carrasco PharmD Note: Maintain BP [...]
--- OUTSIDE RECORDS SUMMARY | 2025-04-12 07:47 | XMS_ITS | Encounter Summary ---
Author Organization [employer] Address [address] [place] [address] 7t [place] [address] Care Team Providers Care General Counselor Name Role Phone Name, Al EMERSON Primary Care Provider [phone] Encounter Details Date Type Department Care Team ([facility] st Contact Info) Description 12/31/2022 Abstract [employer] 230 [place], [place] [phone] Name, MD Al 230 [place], [place] [phone] Social History Tobacco Use Types Packs/Day Years [...] Author Blood Pressure < 140/90 Blood Pressure 144/77(08/13/ 2025 9:27 AM EDT) No Odilia Carrasco, PharmD [...] documented as of this encounter Care Teams General Counselor Relationship Specialty Start Date End Date Name, MD Al 230 [place] [address] PCP - General Family Medicine 06/27/19 11/09/23 documented as of this encounter
--- OUTSIDE RECORDS SUMMARY | 2025-04-12 07:47 | XMS_ITS | Encounter Summary ---
Author Organization [employer] Address [address] [facility] 7t [place] [address] Care Team Providers Care Forensics Analyst Name Role Phone Unavailable Primary Care Provider Unavailabl e Reason for Visit * Reason Comments Med Refill Encounter Details Date Type Department Care Team ([facility] st Contact Info) Description 01/26/2024 Refill [facility] MEDICINE 230 [place], [place] [phone] Name, MD Al 230 [place] [address] Type 2 diabetes mellitus with hyperglycemia, with long-term current use of insulin ([facility]) Social History Tobacco Use Types Packs/Day [...] hyperglycemia, with long-term current use of insulin ([facility]) documented in this encounter Additional Health Concerns Assessment Noted Time PHQ-9 Depression Total Score: 16 023 9:50 AM EDT documented as of this encounter
--- OUTSIDE RECORDS SUMMARY | 2025-04-12 07:47 | XMS_ITS | Encounter Summary ---
Author Organization [employer] Address [address] [facility] 7t [place] [address] Care Team Providers Care Credit Report Checker Name Role Phone Unavailable Primary Care Provider Unavailabl e Reason for Visit * Reason Comments Med Refill Encounter Details Date Type Department Care Team ([facility] st Contact Info) Description 04/05/2024 Refill [facility] MEDICINE 230 [place], [place] [phone] Name, MD Al 230 [place] [address] Nocturia; Essential hypertension Social History Tobacco Use [...]
--- OUTSIDE RECORDS SUMMARY | 2025-04-12 07:47 | XMS_ITS | Encounter Summary ---
Author Organization [employer] Address [address] [facility] 7t [place] [address] Care Team Providers Care Confectionery Drops Machine Operator Name Role Phone Unavailable Primary Care Provider Unavailabl e Reason for Visit * Reason Comments Med Refill Encounter Details Date Type Department Care Team ([facility] st Contact Info) Description 03/03/[address] [facility] MEDICINE 230 [place], [place] [phone] Name, MD Al 230 [place], [place] [phone] Depressive disorder Social History Tobacco Use Types [...]
--- OUTSIDE RECORDS SUMMARY | 2025-04-12 07:47 | XMS_ITS | Encounter Summary ---
Author Organization [employer] Address [address] [facility] 7t [place] [address] Care Team Providers Care Driller Operator Name Role Phone Unavailable Primary Care Provider Unavailabl e Reason for Visit * Reason Comments Med Refill Encounter Details Date Type Department Care Team ([facility] st Contact Info) Description 01/05/2024 Refill [facility] 230 [place] [address] Merle Irwin MD 505 [place], [place] [phone] Social History Tobacco Use Types Packs/Day Years [...]
--- OUTSIDE RECORDS SUMMARY | 2025-04-12 07:47 | XMS_ITS | Encounter Summary ---
Author Organization [employer] Address [address] [facility] 7t [place] [address] Care Team Providers Care Campus Executive Director Name Role Phone Unavailable Primary Care Provider Unavailabl e Reason for Visit * Reason Comments Med Refill Encounter Details Date Type Department Care Team ([facility] st Contact Info) Description 01/12/2024 [facility]ill [facility] 230 [place], [place] [phone] Name, MD Al 230 [place] [address] Type 2 diabetes mellitus with hyperglycemia, with long-term current use of insulin ([facility]) Social History Tobacco Use Types Packs/Day [...] hyperglycemia, with long-term current use of insulin ([facility]) documented in this encounter Additional Health Concerns Assessment Noted Time PHQ-9 Depression Total Score: 16 023 9:50 AM EDT documented as of this encounter
--- OUTSIDE RECORDS SUMMARY | 2025-04-12 07:47 | XMS_ITS | Encounter Summary ---
Author Organization [email or web address] Address [address] [facility] 7t [place] [address] Care Team Providers Care Cryptologic Supervisor Name Role Phone Unavailable Primary Care Provider Unavailabl e Reason for Visit * Reason Comments Med Refill Encounter Details Date Type Department Care Team ([facility] st Contact Info) Description 02/05/[address] [facility] MEDICINE 230 [place], [place] [phone] Name, MD Al 230 [place] [address] Type 2 diabetes mellitus with hyperglycemia, with long-term current use of insulin ([facility]) Social History Tobacco Use Types [...] current use of insulin ([facility]) documented in this encounter Additional Health Concerns Assessment Noted Time PHQ-9 Depression Total Score: 16 023 9:50 AM EDT documented as of this encounter
--- OUTSIDE RECORDS SUMMARY | 2025-04-12 07:47 | XMS_ITS | Encounter Summary ---
Author Organization [employer] Address 75 [facility] 7t [place] [address] Care Team Providers Care Research Chemical Engineer Name Role Phone Unavailable Primary Care Provider Unavailabl e Reason for Visit * Reason Comments Med Refill Encounter Details Date Type Department Care Team ([facility] st Contact Info) Description 04/28/2024 Refill [facility] MEDICINE 230 [place], [place] [phone] Name, MD Al 230 [place], [place] [phone] Social History Tobacco Use Types Packs/Day Years [...]
--- OUTSIDE RECORDS SUMMARY | 2025-04-12 07:47 | XMS_ITS | Encounter Summary ---
Author Organization [employer] Address [address] [facility] 7t [place] [address] Care Team Providers Care Electric Lineman Name Role Phone Unavailable Primary Care Provider Unavailabl e Reason for Visit * Reason Comments Med Refill Encounter Details Date Type Department Care Team ([facility] st Contact Info) Description 03/07/2024 Refill [facility] MEDICINE 230 [place], [place] [phone] Name, MD Al 230 [place], [place] [phone] Essential hypertension Social History Tobacco Use Types [...]
--- OUTSIDE RECORDS SUMMARY | 2025-04-12 07:48 | XMS_ITS | Clinical Summary ---
Author Organization [employer] Address [address] [place] [address] 7t [place] [address] Care Team Providers Care Modeling Analyst Name Role Phone Unavailable Primary Care [...] 11 12/11/19 23 Active Continuous Blood Gluc Electrician Powerhouse (FreeStyle Júnior 2 [place]) deviceIndication s:Type 2 diabetes mellitus with hyperglycemia, with long-term current use of insulin ([facility]) Use as directed to scan [...] 06/15/20 23 Active Lancets (OneTouch Delica Plus Afhybg14C) misc TEST BLOOD SUGAR 3 TIMES A DAY [...] hyperglycemia, with long-term current use of insulin ([facility]) TAKE 1 TABLET BY MOUTH [...] of thumb 05/29/2015 12/24/2022 Obesity 01/23/2012 12/24/2022 Encounters Date Type Department Care Team Description 03/08/2025 Travel from Last 3 Months Immunizations Immunization Administration Dates Next Due Hep B, adult [...] Sign Reading Time Taken Comments Blood Pressure 144/77 03/08/2025 9:27 AM EDT Pulse 72 03/08/2025 9:27 AM EDT Temperature 36.1 C (97 F) 03/08/2025 9:27 AM EDT Respiratory Rate 19 03/08/2025 9:27 AM EDT Oxygen Saturation 98% 09/24/2023 9:04 AM EST Inhaled Oxygen Concentration - - Weight 73 kg (161 lb) 03/08/2025 9:27 AM EDT Height 152.4 cm (5') 03/08/2025 9:27 AM EDT Body Mass Index 31.44 03/08/2025 9:27 AM EDT Plan of Treatment Health Maintenance Due Date [...] 08/04/2022, 08/27/2020 Depression Monitoring 06/25/2023 12/24/2022, 023 SDOH Screening 12/25/2023 12/24/2022 Lipid Panel 01/06/2024 01/05/2023, 03/0 07/2021, 04/23/2021, Additional history exists RSV Patients and Patients Aged 60 years or older (1 - 1-dose 75+ series) 2024 Colonoscopy 01/05/2025 01/05/2015 Colorectal Cancer Screening 01/05/2025 COVID-19 Vaccine ( season) 2025 02/25/2022, 12/28/2020, 11/27/2020 Influenza Vaccine (#1) 2025 , 05/14/2022, 04/18/2021, Additional history exists Tobacco Screening 03/08/2026 03/08/2025 DTaP/Tdap/Td Vaccines (3 - Td or Tdap) [...] patient's age to complete this topic Meningococcal B Vaccine Aged Out No l onger eligible based on patient's age to complete [...] 144/77(2024 9:27 AM EDT) No Odilia Carrasco, PharmWinnie Note: Maintain BP at goal of < 140/90 mmHg over the next 3 months. Hemoglobin A1c < 7.5 Result Component 8.6( 10:06 AM EDT) No Odilia Carrasco, PharmWinnie Note: Achieve A1c goal of <7.5% in the next three months Procedures Procedure Name Priority Date/Time Associated Diagnosis Comments LIPID PANEL, STANDARD Routine 01/05/2023 9:42 AM EDT On statin therapy POCT GLYCATED HEMOGLOBIN, TOTAL Routine 12/24/2022 10:06 AM EDT Type 2 diabetes mellitus with hyperglycemia, with long-term current use of insulin ([facility]) ALBUMIN, RANDOM URINE W/CREATININE Routine 04/23/2021 10:05 AM EDT HM COLONOSCOPY Routine 01/05/2015 1:42 PM EDT from Last 3 Months or Most Recently Relevant to Health Maintenance Results * Lipid Panel, Standard (01/05/2023 9:42 AM EDT) Cholesterol, Total 114 <200 mg/dL [facility] HDL Cholesterol 44 > OR = 40 mg/dL [facility] Triglycerides 96 <150 mg/dL [facility] LDL Cholesterol 52 mg/dL (calc) [facility] Comment: Reference range: <100 Desirable range <100 mg/dL for primary prevention; <70 mg/dL for patients with CHD or diabetic patients with > or = 2 CHD risk factors. LDL-C is now calculated using the Emerald calculation, which is a validated novel method providing better accuracy than the Friedewald equation in the estimation of LDL-C. Alfie SIMMONS et al. WILDA. 2013;310(19): 1905-5651 (http://education.[place]opsFrom[place].com.Solexel/faq/FUR949) Chol/HDLC Ratio 2.6 <5.0 (calc) [facility] Non-HDL Cholesterol 70 <130 mg/dL (calc) [facility] Comment: For patients with diabetes plus 1 [...] MD LAB BLOOD ORDERABLES Final Resul t [facility] [address], [place] [address] [facility] 200 [place] [address] * (ABNORMAL) POCT A1C (12/24/2022 10:06 AM EDT) Hemoglobin A1C 8.6(A) 4.0 - 6.0 % Other 12/24/2022 10:0 6 AM EDT us Al Vu MD POINT OF CARE TEST ENTER/EDIT OR DERABLES Final Result * ALBUMIN, RANDOM URINE W/CREATININE (04/23/2021 10:05 AM EDT) Microalbumin Urine 1.2 See Note: mg/dL [facility] Comment: Reference Range: Reference Range Not established Microalb/Creat Ratio 11 <30 mcg/mg creat [facility] Comment: The ADA defines abnormalities in albumin excretion as follows: Albuminuria Category Result (mcg/mg creatinine) Normal to Mildly increased <30 Moderately increased 30-299 Severely increased > OR = 300 The ADA recommends that at least two of three specimens collected within a 3-6 month period be abnormal before considering a patient to be within a diagnostic category. Creatinine, Urine 109 20 - 320 mg/dL [facility] 04/23/2021 10:0 5 AM EDT us Alnixon Vu MD LAB URINE ORDERABLES Final Resul t [facility] [address] * Hm Colonoscopy (01/05/2015 1:42 PM EDT) Colonoscopy Normal Normal Narrative Teresita Ricci - 01/05/2015 1:42 PM EDT Recommended 5 year follow up us Historical Provider HEALTH MAINTENANCE Final Result from Last 3 Months or Most Recently Relevant to Health Maintenance Insurance [id number] [place] [address]
--- OUTSIDE RECORDS SUMMARY | 2025-04-12 07:48 | XMS_ITS | Encounter Summary ---
Author Organization [employer] Address [address] [facility] 7t [place] [address] Care Team Providers Care Outpatient Phlebotomist Name Role Phone Unavailable Primary Care Provider Unavailabl e Reason for Visit * Reason Comments Med Refill Encounter Details Date Type Department Care Team ([facility] st Contact Info) Description 12/07/2023 Refill [facility] MEDICINE 230 [place], [place] [phone] Name, MD Al 230 [place], [place] [phone] Social History Tobacco Use Types Packs/Day Years [...]
--- OUTSIDE RECORDS SUMMARY | 2025-04-12 07:48 | XMS_ITS | Patient Health Record ---
Author Organization [facility] Address [address] [facility] [place] [address] Care Team Providers Care Porter Bath Name Role Phone Nury Summers Primary Care Provider UnavailVj Jay Unavailable [phone] Soledad EMERSON, [place] Unavailable Unavailable Allergies No [...] Problem Acquired hammer toe of right foot (155842545640728 5) Other hammer toe(s) (acquired), right foot (M20.41) Active confirmed Problem Acquired hammer toe of left foot (235499940319417 3) Other hammer toe(s) (acquired), left foot (M20.42) Active confirmed Problem Type II diabetes mellitus without complication (311451045) Type 2 diabetes mellitus without complication (E11.9) Active confirmed Vital Signs Height 5ft in 12/12/2024 Weight 167 lbs 12/12/2024 BMI 32.61 kg/m2 12/12/2024 Procedures Procedure Date Ordered Date Performed Result Body Sit e 70653-AMPGAWD NAIL, 6 OR MORE 12/12/2024 N/A Encounters Encounter Location Date Provider [facility] [address] [address] 12/12/2024 Vj Ayala Pain in right toe(s) M79.674 ; Tinea unguium B35.1 ; Pain in left toe(s) M79.675 ; Type 2 diabetes mellitus without complication E11.9 ; Other hammer toe(s) (acquired), right foot M20.41 and Other hammer toe(s) (acquired), left foot M20.[facility] [address] 06/09/2024 [facility] [address] 09/19/2024 Vj Ayala Assessments Encounter Date Diagnosis [...] Treatment Pending Test Test Name Order Date 70012-[id number] NAIL, 6 OR MORE 12/12/2024 Insurance Providers Payer Name Payer Address Payer Phone Subscriber Number Group Number Insured Name Patient Relationship to Insured Coverage Start Date Coverage End Date [id number] [address] [address] [place] [address] [id number] Basim Saini Self - patient is the insured Medical (General) History Medical History History ICD Code Chicken pox Diabetes mellitus Reflux Hypercholesterolemia Surgical History Surgery Date(Month/Year) cataract surgery 2014
--- OUTSIDE RECORDS SUMMARY | 2025-04-12 07:48 | XMS_ITS | Encounter Summary ---
Author Organization [employer] Address [address] [facility] 7t [place] [address] Care Team Providers Care Programmer Operator Numerical Control Name Role Phone Unavailable Primary Care Provider Unavailabl e Reason for Visit * Reason Comments Med Refill Encounter Details Date Type Department Care Team ([facility] st Contact Info) Description 05/29/2024 Refill [facility] MEDICINE 230 [place], [place] [phone] Name, MD Al 230 [place] [address] Type 2 diabetes mellitus with hyperglycemia, with long-term current use of insulin ([facility]) Social History Tobacco Use Types Packs/Day [...] hyperglycemia, with long-term current use of insulin ([facility]) documented in this encounter Additional Health Concerns Assessment Noted Time PHQ-9 Depression Total Score: 16 023 9:50 AM EDT documented as of this encounter
--- OUTSIDE RECORDS SUMMARY | 2025-04-12 07:48 | XMS_ITS | Encounter Summary ---
Author Organization [employer] Address [address] [facility] 7t [place] [address] Care Team Providers Care Electronic Data Interchange Specialist Name Role Phone Name, Al EMERSON Primary Care Provider [phone] Reason for Visit * Reason Comments Med Refill Encounter Details Date Type Department Care Team ([facility] st Contact Info) Description 06/15/2023 Refill [facility] MEDICINE 230 [place], [place] [phone] Name, MD Al 230 [place], [place] [phone] Social History Tobacco Use Types Packs/Day Years [...] 144/77(2024 9:27 AM EDT) No Odilia Carrasco, JackieD Note: Maintain BP [...] documented as of this encounter Care Teams Electronic Data Interchange Specialist Relationship Specialty Start Date End Date Name, MD Al [address] [place] [address] PCP - General Family Medicine 06/27/19 11/09/23 documented as of this encounter
--- OUTSIDE RECORDS SUMMARY | 2025-04-12 07:48 | XMS_ITS | Encounter Summary ---
Author Organization [employer] Address [address] [facility] 7t [place] [address] Care Team Providers Care Financial Analyst Intern Name Role Phone Unavailable Primary Care Provider Unavailabl e Reason for Visit * Reason Comments Med Refill Encounter Details Date Type Department Care Team ([facility] st Contact Info) Description 06/14/2024 Refill [facility] 230 [place] [address] Merle Irwin MD 505 [place], [place] [phone] Social History Tobacco Use Types Packs/Day Years [...]
--- OUTSIDE RECORDS SUMMARY | 2025-04-12 07:48 | XMS_ITS | Encounter Summary ---
Author Organization [employer] Address 75 [facility] 7t [place] [address] Care Team Providers Care Account Classification Clerk Name Role Phone Unavailable Primary Care Provider Unavailabl e Reason for Visit * Reason Comments Med Refill Encounter Details Date Type Department Care Team ([facility] st Contact Info) Description 06/10/2024 Refill [facility] MEDICINE 230 [place], [place] [phone] Name, MD Al 230 [place] [address] Type 2 diabetes mellitus with hyperglycemia, with long-term current use of insulin ([facility]); Essential hypertension Social History Tobacco Use Types [...] hyperglycemia, with long-term current use of insulin ([facility]) Essential hypertension Unspecified essential hypertension documented in this encounter Additional Health Concerns Assessment Noted Time PHQ-9 Depression Total Score: 16 023 9:50 AM EDT documented as of this encounter
--- OUTSIDE RECORDS SUMMARY | 2025-04-12 07:48 | XMS_ITS | Encounter Summary ---
Author Organization [employer] Address [address] [facility] 7t [place] [address] Care Team Providers Care Critical Power Technician Name Role Phone Unavailable Primary Care Provider Unavailabl e Reason for Visit * Reason Comments Med Refill Encounter Details Date Type Department Care Team ([facility] st Contact Info) Description 05/31/2024 Refill [facility] MEDICINE 230 [place], [place] [phone] Name, MD Al 230 [place], [place] [phone] Type 2 diabetes mellitus with hyperglycemia ([facility]) Social History Tobacco Use Types Packs/Day [...]
--- OUTSIDE RECORDS SUMMARY | 2025-04-12 07:48 | XMS_ITS | Encounter Summary ---
Author Organization [employer] Address [address] [place] [address] 7t [place] [address] Care Team Providers Care Real Estate Executive Assistant Name Role Phone Name, Al EMERSON Primary Care Provider [phone] Reason for Visit * Reason Comments Med Refill Encounter Details Date Type Department Care Team ([facility] st Contact Info) Description 03/05/2023 Refill [facility] MEDICINE 230 [place], [place] [phone] Name, MD Al 230 [place], [place] [phone] Essential hypertension Social History Tobacco Use Types [...] documented as of this encounter Care Teams Real Estate Executive Assistant Relationship Specialty Start Date End Date Name, MD Al 230 [place] [address] PCP - General Family Medicine 06/27/19 11/09/23 documented as of this encounter
--- OUTSIDE RECORDS SUMMARY | 2025-04-12 07:48 | XMS_ITS | Encounter Summary ---
Author Organization [employer] Address [address] [facility] 7t [place] [address] Care Team Providers Care Ticket Writer Name Role Phone Unavailable Primary Care Provider Unavailabl e Reason for Visit * Reason Comments Med Refill Encounter Details Date Type Department Care Team ([facility] st Contact Info) Description 07/25/2024 Refill [facility] MEDICINE 230 [place], [place] [phone] Name, MD Al 230 [place], [place] [phone] Type 2 diabetes mellitus with hyperglycemia ([facility]) Social History Tobacco Use Types Packs/Day Years [...]
--- OUTSIDE RECORDS SUMMARY | 2025-04-12 07:48 | XMS_ITS | Encounter Summary ---
Author Organization [employer] Address [address] [place] [address] 7 [place] [address] Care Team Providers Care Refrigerating Machine Operator Name Role Phone Name, Al EMERSON Primary Care Provider [phone] Reason for Visit * Reason Onset Date Comments reuqesting call 02/04/2023 Encounter Details Date Type Department Care Team ([facility] st Contact Info) Description 02/04/2023 Telephone [facility] [address] [place] [address] [phone] Name, MD Al [address] [place] [address] reuqesting call Social History Tobacco Use Types [...] for VNA services. Please contact marge at [phone] Fax number: [phone] documented in this encounter Plan of Treatment [...] documented as of this encounter Care Teams Refrigerating Machine Operator Relationship Specialty Start Date End Date Name, MD Al [address] [place] [address] PCP - General Family Medicine 06/27/19 11/09/23 documented as of this encounter
--- OUTSIDE RECORDS SUMMARY | 2025-04-12 07:48 | XMS_ITS | Patient Health Record ---
Author Organization [employer] [facility] Address [address] [place] [address] Care Team Providers Care Assistant Professor Surgical Technology Name Role Phone Pam Yuan Primary Care Provider Raul Tillman [phone] Reason For Referral No Information Medications Medication [...] Status Risk Notes Problem Colon cancer screening (139399257) Colon cancer screening (V76.51) Active confirmed Problem History of adenomatous polyp of colon (017753947) History of adenomatous polyp of colon (V12.72) Active confirmed Problem Long-term use of aspirin therapy (V58.66) Active confirmed Plan Of Treatment Future Test Test Name Order Date COLONOSCOPY 11/07/2014 Insurance Providers Payer Name Payer Address Payer Phone Subscriber Number Group Number Insured Name Patient Relationship to Insured Coverage Start Date Coverage End Date [facility] [address] [place] [phone] [id number] DENISSE LEVY Self - patient is the insured Medical (General) History Medical History History ICD Code Screening colonoscopy 12-5-2 008--2 tubular adenomas removed--he was also noted to have a moderate amount of sigmoid diverticulosis and internal hemorrhoids IDDM HTN Elevated cholesterol Denies [place],CVA,renal disease Asthma Surgical History Surgery Date(Month/Year) Right knee arthroscopy
--- OUTSIDE RECORDS SUMMARY | 2025-04-12 07:48 | XMS_ITS | Encounter Summary ---
Author Organization [employer] Address [address] [facility] 7t [place] [address] Care Team Providers Care Sounding Device Operator Name Role Phone Unavailable Primary Care Provider Unavailabl e Reason for Visit * Reason Comments Med Refill Encounter Details Date Type Department Care Team ([facility] st Contact Info) Description 11/29/2023 Refill [facility] [address] [place], [place] [phone] Name, MD Al [address] [place] [address] Type 2 diabetes mellitus with hyperglycemia, with long-term current use of insulin ([facility]) Social History Tobacco Use Types [...] 8.6( 10:06 AM EDT) No Odilia Carrasco, Kkio Note: Achieve A1c goal of <7.5% in the next three months documented as of this encounter Visit Diagnoses Diagnosis Type 2 diabetes mellitus with hyperglycemia, with long-term current use of insulin ([facility]) documented in this encounter Additional Health Concerns Assessment Noted Time PHQ-9 Depression Total Score: 16 023 9:50 AM EDT documented as of this encounter
--- OUTSIDE RECORDS SUMMARY | 2025-04-12 07:48 | XMS_ITS | Encounter Summary ---
Author Organization [employer] Address [address] [facility] 7t [place] [address] Care Team Providers Care Metallurgist Helper Name Role Phone Name, Al EMERSON Primary Care Provider [phone] Odilia Carrasco PharmD Unavailable [phone] Encounter Details Date Type Department Care Team (Late st Contact Info) Description 12/25/2022 Orders Only [facility] [address] [place], [place] [phone] Mohsen Becker MD [address] [place], [place] [phone] Social History Tobacco Use Types Packs/Day Years [...] documented as of this encounter Care Teams Metallurgist Helper Relationship Specialty Start Date End Date Name, MD Al [address] [place] [address] PCP - General Family Medicine 06/27/19 11/09/23 Odilia Carrasco PharmD [address] [place] [address] Pharmacist Internal Medicine 05/27/22 12/28/22 documented as of this encounter
--- OUTSIDE RECORDS SUMMARY | 2025-04-12 07:48 | XMS_ITS | Encounter Summary ---
Author Organization [employer] Address [address] [facility] 7t [place] [address] Care Team Providers Care Development Architect Name Role Phone Unavailable Primary Care Provider Unavailabl e Reason for Visit * Reason Comments Med Refill Encounter Details Date Type Department Care Team ([facility] st Contact Info) Description 06/13/2024 Refill [facility] [address] [place], [place] [phone] Name, MD Al [address] [place] [address] Essential hypertension; Type 2 diabetes mellitus with hyperglycemia, with long-term current use of insulin ([facility]) Social History Tobacco Use Types Packs/Day Years [...] hyperglycemia, with long-term current use of insulin ([facility]) documented in this encounter Additional Health Concerns Assessment Noted Time PHQ-9 Depression Total Score: 16 023 9:50 AM EDT documented as of this encounter
--- OUTSIDE RECORDS SUMMARY | 2025-04-12 07:48 | XMS_ITS | Encounter Summary ---
Author Organization [employer] Address [address] [facility] 7t [place] [address] Care Team Providers Care Digital Operations Analyst Name Role Phone Unavailable Primary Care Provider Unavailabl e Reason for Visit * Reason Comments Med Refill Encounter Details Date Type Department Care Team ([facility] st Contact Info) Description 06/16/2024 Refill [facility] [address] [place], [place] [phone] Name, MD Al [address] [place], [place] [phone] Social History Tobacco Use Types Packs/Day Years [...]
--- OUTSIDE RECORDS SUMMARY | 2025-04-12 07:48 | XMS_ITS | Encounter Summary ---
Author Organization [employer] Address [address] [facility] 7t [place] [address] Care Team Providers Care Campus Police Officer Name Role Phone Unavailable Primary Care Provider Unavailabl e Reason for Visit * Reason Comments Med Refill Encounter Details Date Type Department Care Team ([facility] st Contact Info) Description 06/14/2024 Refill [facility] [address] [place], [place] [phone] Name, MD Al [address] [place], [place] [phone] Type 2 diabetes mellitus with hyperglycemia ([facility]) Social History Tobacco Use Types Packs/Day Years [...] Component 8.6( 10:06 AM EDT) No Odilia Cararsco, Kiko Note: Achieve A1c goal of <7.5% in the next three months documented as of this encounter Visit Diagnoses Diagnosis Type 2 diabetes mellitus with hyperglycemia (CMS/HCC) documented in this encounter Additional Health Concerns Assessment Noted Time PHQ-9 Depression Total Score: 16 023 9:50 AM EDT documented as of this encounter
--- NOTE | 2025-04-12 08:14 | MHC.PC.OV ---
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 Medication List - Last Reconciled 04/12/25 by Carolina Gibson MD acetaminophen 650 mg (2 x 325 mg) PO Q6H PRN aspirin 81 mg PO BEDTIME blood pressure test kit-large As directed bupropion HCl XL 150 mg PO QAM 90 days calcium carbonate-vitamin D3 600 mg-5 mcg (200 unit) 1 tab PO BID 90 days clotrimazole-betamethasone 1-0.05 % 1 appl topical BID PRN 2 weeks cromolyn 4% 1 drp ophthalmic (eye) QID 30 days dulaglutide (Trulicity) 0.75 mg (0.5 mL) subcut QWEEK 4 weeks flash glucose sensor (FreeStyle Júnior 2 Sensor kit) USE DIRECTED EVERY 14 DAYS [free style lite meter As directed] insulin glargine (Lantus Solostar U-100 Insulin) 35 units (0.35 mL) subcut BEDTIME 90 days lancets As directed lisinopril 10 mg PO QAM metformin 1,000 mg PO BID 90 days methocarbamol 1,000 mg (2 x 500 mg) PO Q8H 3 days multivitamin 1 tab PO QAM 90 days omeprazole 20 mg PO DAILY 90 days pravastatin 40 mg PO BEDTIME tamsulosin 0.4 mg PO QAM Tobacco use date assessed: 04/12/25 Fall risk assessment: No Falls in past year Last assessed Fall Risk: 04/12/25 Dental Screening Dental Screen Date: 04/12/25 Did you have a dental visit in the last 12 months?: Yes Did you have a dental problem in the last 6 months where you did not have access to dental care?: No Was dental information given to patient?: Patient has dentist HPI HPI Comments History of Present Illness Details The patient is a 74-year-old male presenting with diabetes mellitus and urinary incontinence. The diabetes mellitus has been poorly controlled with a recent hemoglobin A1c of 11.6%, significantly above the target of 7%. The patient is currently on multiple medications including Trulicity, Lantus, and Metformin, but adherence to monitoring blood glucose levels at home has been inconsistent due to limited sensor availability. The plan includes increasing the doses of Trulicity and Lantus to improve glycemic control. The patient also reports urinary incontinence characterized by postvoid dribbling and occasional urinary leakage. He has not seen a urologist yet, but a referral is planned for further evaluation, including a CT urogram and follow-up appointments. The patient has a history of hyperlipidemia, which is well-managed with pravastatin, and hypertension, which is controlled with lisinopril. He is also on bupropion for mild depression, which is stable. Preventative care measures include being up to date with pneumococcal and tetanus vaccinations. [facility] Medical History History of nicotine dependence Diabetes Hypertension Surgical History History of arthroplasty of right knee Family History Mother Brain cancer Father Diabetes Social History Housing: Apartment Alcohol intake: former Patient Tobacco Use Status: Former Tobacco user e-Cigarette/Vaping Use: Never Used Second Hand Smoke Exposure: No service: No Current occupational status: unemployed Current occupation: right handed Cognitive needs: Yes Hearing needs: No Vision needs: No Questionnaire PHQ-9 Over the last 2 weeks, how often have you been bothered by any of the following problems? 1. Little interest or pleasure in doing things: not at all 2. Feeling down, depressed, or hopeless: several days 3. Trouble falling or staying asleep, or sleeping too much: not at all 4. Feeling tired or having little energy: not at all 5. Poor appetite or overeating: not at all 6. Feeling bad about yourself - or that you are a failure or have let yourself or your family down: not at all 7. Trouble concentrating on things, such as reading the newspaper or watching television: several days 8. Moving or speaking so slowly that other people could have noticed. Or the opposite - being so fidgety or restless that you have been moving around a lot more than usual: several days 9. Thoughts that you would be better off or of hurting yourself in some way: not at all Total score: 3 Depression Screening Interpretation: Positive Depression Screening Follow-up: Existing condition, In treatment and Follow-up Visit Requested Depression Screening Done: Yes [id number] - PHQ-9 Billing: Yes Source: Developed by Drs. Raul Sanderson, Katerina Cazares, Ok Morris and colleagues, with an educational marleni from [employer]. Thrive Questionnaire Date Thrive assessed: 11/23/24 I am a: Patient What is your living situation today?: I have a steady place to live Within the past 12 months, did the food you bought not last and you didn't have the money to get more?: Never true Within the past 12 months, did you worry whether your food would run out before you got money to buy more?: Never true Do you have trouble paying for medicines?: No Do you have trouble getting transportation to medical appointments?: Yes Do you have trouble paying your heating and electricity bill?: No Do you have trouble taking care of your child, family member or friend?: No Do you have trouble with day-to-day activities such as bathing, preparing meals, shopping, managing finances, etc.?: No Are you currently unemployed and looking for a job?: Yes Are you interested in more education?: Yes Please select the resources that you would like help with: None Currently or been in a relationship where the following occur: No concerns reported THRIVE Score: 1 AUDIT C Alcohol Use Questionnaire (AUDIT-C) 1. How often do you have a drink containing alcohol?: Never 3. How often do you have six or more drinks on one occasion?: Never Total Score: 0 Score Reviewed/Action Taken: No ZARI-7 AMB Questionnaire ZARI-7 Date ZARI - 7 assessed: 11/23/24 Feeling nervous, anxious, or on edge: 1 = Several days Not being able to stop or control worryin = Several days Worrying too much about different things: 1 = Several days Trouble relaxin = Several days Being so restless that it is hard to sit still: 1 = Several days Becoming easily annoyed or irritable: 1 = Several days Feeling afraid as if something awful might happen: 0 = Not at all Total ZARI-7 score (0-4 normal; 5-9 mild; 10-14 moderate; 15-21 severe): 6 Source: Developed by Drs. Raul Sanderson, Katerina Cazares, Ok Morris and colleagues, with an educational marleni from [employer]. ZARI-7 Assessment Billing ZARI-7 Assessment Tool: ZARI-7 Assessment 53806 Review of Systems Const All systems reviewed & are unremarkable except as noted in HPI and below Card Denies chest pain at rest, Denies chest pain with activity, Denies edema, Denies irregular heart rhythm, Denies claudication, Denies dyspnea, Denies dyspnea on exertion, Denies orthopnea, Denies paroxysmal nocturnal dyspnea and Denies slow heart rate Resp Denies cough, Denies dyspnea and Denies dyspnea on exertion Physical exam (Primary Care) Vital Signs: Last Vital Signs Temp 97.0 F 04/12/25 08:15 Pulse 67 04/12/25 08:15 BP 120/64 04/12/25 08:15 Pulse Ox 98 04/12/25 08:15 Oxygen Delivery Method Room Air 04/12/25 08:15 BMI result Body Mass Index 31.3 BMI Assessment/Plan discussion: High BMI High, discussed plan: lifestyle, weight reduction, dietary and physical activity Tobacco/Smoking Status: Tobacco use Status Tobacco use date assessed 04/12/25 04/12/25 08:21 Patient Tobacco Use Status Former Tobacco user 04/12/25 08:21 e-Cigarette/Vaping Use Never Used 04/12/25 08:21 PHQ-9: PHQ-9 Score PHQ-9: Total score 3 04/12/25 08:21 Depression Screening Interpretation: Positive Depression Screening Follow-up: Existing condition, In treatment and Follow-up Visit Requested Thrive Assessment: Date of Thrive Assessment Date Thrive assessed 11/23/24 04/12/25 08:21 Currently or been in a relationship where the following occur: No concerns reported Resp Effort & Inspection: normal respiratory effort Auscultation: clear to auscultation bilaterally Cardio Jugular venous distension: no JVD Rate: regular rate Rhythm: regular rhythm Heart sounds: S1 normal heart sound present and S2 normal heart sound present Extrem General: Yes full ROM Results AMB Hemoglobin A1c AMB Hemoglobin A1c 11.7 % Last Edit by Opal Funk CMA on 04/12/25 08:24 Results Reviewed Results Reviewed: Laboratory Last Values Hgb A1c (Clinic) 11.7 % (4.0-6.0) H 04/12/25 08:21 Coding Level of Care Code Est Pt Level 4 (17458) Complex EM visit Add On G2211 Diagnoses Mild major depression F32.0 Essential hypertension I10 Hyperlipidemia LDL goal <70 E78.5 Type 2 diabetes mellitus with hyperglycemia, with long-term current use of insulin E11.65; Z79.4 Diabetes mellitus type: type 2 Urinary incontinence, urge N39.41 Additional Codes PHQ-9 - 04892 - PHQ-9 Billing: Yes ([id number]) ZARI-7 Assessment Billing - ZARI-7 Assessment Tool: ZARI-7 Assessment 14113 ([id number]) Time Spent (min) 24 Assessment & Plan Assessment & Plan (1) Mild major depression: Code(s): F32.0 - Major depressive disorder, single episode, mild Category: Medical (2) Essential hypertension: Code(s): I10 - Essential (primary) hypertension Category: Medical (3) Hyperlipidemia LDL goal <70: Code(s): E78.5 - Hyperlipidemia, unspecified Category: Medical (4) Diabetes mellitus with hyperglycemia, with long-term current use of insulin: Code(s): E11.65 - Type 2 diabetes mellitus with hyperglycemia; Z79.4 - ocean transportation intermediary (current) use of insulin Category: Medical Qualifiers: Diabetes mellitus type: type 2 Qualified Code(s): E11.65 - Type 2 diabetes mellitus with hyperglycemia; Z79.4 - ocean transportation intermediary (current) use of insulin (5) Urinary incontinence, urge: Code(s): N39.41 - Urge incontinence Category: Medical Plan Plan Patient was informed and verbally consented to the use of an ambient scribe for clinic note documentation during this visit. 1. Diabetes Mellitus The patient's diabetes mellitus is poorly controlled with a hemoglobin A1c of 11.6%. The plan includes increasing the dose of Lantus from 35 to 40 units and adjusting Trulicity to the next dose to improve glycemic control. A referral to an it teacher is planned for further management and to facilitate continuous glucose monitoring. 2. Urinary Incontinence The patient reports urinary incontinence with postvoid dribbling. A referral to a urologist is planned for further evaluation, including a CT urogram and follow-up appointments to address the incontinence. 3. Hyperlipidemia The patient's hyperlipidemia is well-managed with pravastatin, and no changes are needed at this time. 4. Hypertension The patient's hypertension is controlled with lisinopril, and no changes are needed at this time. 5. Depression The patient's mild depression is stable with bupropion, and no changes are needed at this time. 6. Preventative Care The patient is up to date with pneumococcal and tetanus vaccinations. Orders: Orders AMB Hemoglobin A1c Today Z13.9 - Encounter for screening, unspecified Lipid Panel 4 Months E78.5 - Hyperlipidemia, unspecified Microalbumin, Random (w Creat) 4 Months R80.9 - Proteinuria, unspecified Comprehensive [place]. Panel Fast 4 Months E11.65 - Type 2 diabetes mellitus with hyperglycemia, Z79.4 - prison (current) use of insulin Referrals Endocrinology Referral E11.65 - Type 2 diabetes mellitus with hyperglycemia, Z79.4 - ocean transportation intermediary (current) use of insulin Medications: New dulaglutide (Trulicity) 1.5 mg (0.5 mL) subcut QWEEK 6.5 mL 1RF 90 days E11.65 - Type 2 diabetes mellitus with hyperglycemia, Z79.4 - prison (current) use of insulin Changed From insulin glargine (Lantus Solostar U-100 Insulin) 35 units (0.35 mL) subcut BEDTIME 90 days 31.5 mL 1RF To insulin glargine (Lantus Solostar U-100 Insulin) 40 units (0.4 mL) subcut BEDTIME 36 mL 1RF 90 days Refilled flash glucose sensor (FreeStyle Júnior 2 Sensor kit) USE DIRECTED EVERY 14 DAYS 2 kits 11RF Discontinued dulaglutide (Trulicity) Discontinued Reason: Patient Completed Course 0.75 mg (0.5 mL) subcut QWEEK 4 weeks 2 mL 6RF
[2025-04-12 08:15] VITALS: BP 120/64; PULSE 67; TEMP 36.1; O2SAT 98; BMI 31.3
== END 2025-04-12 08:51 | disposition home or self-care (01) ==
LOC: HO.HMCH 07:43
PROVIDERS: PCP Internal Medicine; Visit Provider Internal Medicine
DX: I10 Essential (primary) hypertension (principal); F32.0 Major depressive disorder, single episode, mild; E11.65 Type 2 diabetes mellitus with hyperglycemia; Z79.4 Long term (current) use of insulin; E78.5 Hyperlipidemia, unspecified; N39.41 Urge incontinence

== ENCOUNTER → 2025-04-12 07:42 | Outpatient (BNVA) | payer OTHER, SELFPAY | PROVIDERS: PCP Internal Medicine; Visit Provider Internal Medicine | DX: E11.65 Type 2 diabetes mellitus with hyperglycemia (principal); E78.5 Hyperlipidemia, unspecified; F32.0 Major depressive disorder, single episode, mild; N39.41 Urge incontinence; R80.9 Proteinuria, unspecified; I10 Essential (primary) hypertension; Z79.4 Long term (current) use of insulin | CPT/HCPCS: 83036; 96127; 99212 ==

== ENCOUNTER 2025-04-27 09:19 | Outpatient (AMB) | payer OTHER, SELFPAY ==
--- OUTSIDE RECORDS SUMMARY | 2024-09-21 06:00 | XMS_ITS ---
Author Organization [facility] Address [address] [place] [address] [place] [address] Care Team Providers Care Model Maker Plaster Name Role Phone Nury Summers Primary Care Provider Unavaila Vj Calixto Unavailable [phone] Soledad EMERSON, [place] Unavailable Unavailable Encounters Encounter Location Date Provider Diagnosis [address] [address] 09/21/2024 Vj Ayala Plan Of Treatment No Information Progress Notes * Shwetha LEVYoDOB:[birth year] (74 yo M)Acc No.[id number]:09/21/2024 Progress Notes Patient: Basim PEPE Provider: Brandy Ayala DPM :1950 A ge:74 Y S ex:Male Date:09/21/2024 Address:[address] [place] [address] [facility] Pcp:Nury Summers Subjective: * Chief Complaints: * * Medical History: Objective: * Vitals: Assessment: Plan: * Treatment: * Images: * The named appointment provid er may or may not be the originator of this progress note, and it is not deemed complete until electronically signed by the appointment provider. Sign off status: Pending * Provider: Brandy Ayala DPM Date: 0 09/21/2024 Generated for Regla smith/Sagrario/eTransmitting on: 1 10:17 AM EDT
--- NOTE | 2025-04-27 09:38 | A.OFFVIS_ITS ---
Vital Signs 04/27/25 09:39 Height 5 ft Weight 160 lb 14.999 oz BMI 31.4 BP 124/78 Blood Pressure Location Rt brachial Position Sitting Pulse 94 Pulse Source Pulse Oximeter Pulse Oximetry (%) 97 Oxygen Delivery Method Room Air Oxygen Flow Rate 73 Intake Visit Reasons: T2DM Intake Note: NEW Patient presents today to establish treatment for Type 2 Diabetes Mellitus: Last Diabetic eye exam was on: DUE, patient needs to make an appt Last Podiatry exam was on: Patient does not see a Technical Communication Teacher Most recent HbA1c: 11.7%, 04/12/2025 Random Glucose: 166 mg/dL Erector Operator Required: Yes Erector Operator Language: Manager Of School Services: Erector Operator Offered & Declined (DR Bhakta Speak Fluent Cymro) Accompanied by: Self / Same As Patient Allergies empagliflozin (From [employer]) Adverse Reaction (Intermediate, Verified 04/12/25 08:33) 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 - The patient was diagnosed with diabetes over forty years ago while living in [place]. - Initially experienced dizziness, leading to the diagnosis. - Has been on multiple medications over the years, including insulin. He does not recall his previous medications. - Uses a glucose meter and sensor but did not bring them to the appointment. - Reports dizziness and hearing difficulties, especially in the left ear. - Recommended for laser treatment for diabetic retinopathy but missed appointmen ts due to transportation barriers. - Had hypoglycemic episodes in the past, with blood sugar dropping to 50 mg/dL, but not recently. - Current blood sugar readings range from 250 to 350 mg/dL. - Hemoglobin A1c was 6.9% in October 2024 but increased to 11.7% due to increased consumption of sweets and lack of dietary control. - Walks daily around their building but is inconsistent with dietary recomme ndations. - Often forgets to take insulin 1-3 times a week and has not been on diabetes medications consistently for over a month. - Prefers Algerian food and white bread, admits to eating large portions and sweets like grapes. - Struggles with literacy, impacting medication management. Current medication Lantus 40 units ( increased from 35 on 04/12/2025)? Trulicity 1.5 mg weekly ( increased from 0.75 mg weekly on 04/12/2025)-not taking per patient report Physical exam: General: Well appearing. NAD. Neck/Thyroid: Thyroid not palpable, no nodules. Eyes: No conjunctival injection, not lid lag or proptosis CV: RRR, no murmur. No edema. Resp:Lungs clear to auscultation bilaterally Abdomen: Soft, nontender. nondistended Extremities/Neuro: No weakness or tremor of outstretched hands Diabetic Foot Exam: Normal sensation to monofilament exam in lower extremities bilaterally Labs: Test (Reference Range) 09/21/19 11:00 11/11/23 08:06 WBC (4.8-10.8 X10^3/uL) 7.8 7.2 RBC (4.60-5.80 X10^6/uL) 4.52 L 4.93 Hgb (14.0-18.0 g/dl) 14.3 14.8 Hct (42.0-52.0 %) 42.4 45.5 Test (Reference Range) 11/11/23 08:06 03/09/24 13:24 07/25/24 15:28 11/23/24 13:15 11/25/24 10:04 04/12/25 08:21 Creatinine (0.5-1.4 mg/dL) 0.98 0.94 Est GFR (Non-Af Amer) Estimated GFR > 60 > 60 Hgb A1c (Clinic) (4.0-6.0 %) 7.6 H 7.8 H? 6.9 H 11.7 H Test (Reference Range) 09/21/19 10:56 11/11/23 08:09 11/25/24 10:00 02/01/25 09:10 Ur Random Creatinine 81.18 Ur Random Microalbumin < 5.0 Urine Creatinine 75.91 100.82 Urine Microalbumin 19.0 6.0 Microalb/Creat Ratio (<30 ug/mg cr) TNP 25.0 5.9 PFSH Medical History History of nicotine dependence Diabetes Hypertension Surgical History History of arthroplasty of right knee Family History Mother Brain cancer Father Diabetes Social History Housing: Apartment Alcohol intake: former Patient Tobacco Use Status: Former Tobacco user e-Cigarette/Vaping Use: Never Used Second Hand Smoke Exposure: No service: No Current occupational status: unemployed Current occupation: right handed Cognitive needs: Yes Hearing needs: No Vision needs: No Physical Exam Vital Signs: Last Vital Signs Pulse 94 04/27/25 09:39 BP 124/78 04/27/25 09:39 Pulse Ox 97 04/27/25 09:39 Oxygen Delivery Method Room Air 04/27/25 09:39 Oxygen Flow Rate 73 04/27/25 09:39 BMI result Body Mass Index 31.4 Results Reviewed Results Reviewed: Laboratory Last Values Glucose (Clinic) 266 mg/dL (60-115) H 04/27/25 09:47 Assessment & Plan Assessment & Plan (1) Diabetes mellitus with hyperglycemia, with long-term current use of insulin: Code(s): E11.65 - Type 2 diabetes mellitus with hyperglycemia; Z79.4 - rodent exterminator (current) use of insulin Category: Medical Qualifiers: Diabetes mellitus type: type 2 Qualified Code(s): E11.65 - Type 2 diabetes mellitus with hyperglycemia; Z79.4 - detention (current) use of insulin (2) Illiterate: Code(s): Z55.0 - Illiteracy and low-level literacy Category: Social Hx Plan Type 2 Diabetes Mellitus Uncontrolled diabetes in the setting of dietary considerations, medication noncompliance due to forgetfulness and illiteracy. I am concerned that this patient had reported to me that he is unable to follow written instructions and he is not able to read nor is his . He did report to me that he does not know how he decides what dose of medications to take. And surprised as he was previously relatively controlled in June 2024 and October 2024 by now his A1c have spiked to 11.7%. I am more concerned about this patient not been able to read and given himself variable doses of insulin which could be fatal at his age and she could give himself an overdose of insulin. We will plan to refer this patient to social security assessor and also to a VNA system that could be seen the patient and helping with medication usage. Plan: - Emphasize adherence to prescribed medications, including insulin and initiating Trulicity as soon as possible. - Encourage a balanced diet focused on portion control, moderation of carbohydrates, and reduction of sweets, especially Algerian food and fruits like grapes. - Aim for regular physical activity, at least 150 minutes per week. - Daily foot inspections and avoid walking barefoot. - Educate on personal targets for A1c, blood pressure, and LDL cholesterol. - Lifestyle counseling focusing on nutrition, physical activity, and weight management. - Continue same insulin doses with monitoring for hypoglycemia - Advised the patient to become Trulicity from the pharmacy and let us know - Annual screening for complications. - Refer to a social security assessor for assistance with literacy and medication management. - follow-up in 1 month Orders: Referrals Controller Instructor Referral E11.65 - Type 2 diabetes mellitus with hyperglycemia, Z55.0 - Illiteracy and low-level literacy, Z79.4 - rodent exterminator (current) use of insulin Coding Level of Care Code New Pt Level 5 (31490) Complex EM visit Add On G2211 Diagnoses Type 2 diabetes mellitus with hyperglycemia, with long-term current use of insulin E11.65; Z79.4 Diabetes mellitus type: type 2 Illiterate Z55.0 Time Spent (min) 60 Comment Time spent on review of previous records, history, exam/plan and patient education.
[2025-04-27 09:39] VITALS: BP 124/78; PULSE 94; O2SAT 97; BMI 31.4
[2025-04-27 09:54] LABS: Glucose, Whole Blood 266 mg/dL (60-115)
--- OUTSIDE RECORDS SUMMARY | 2025-04-27 10:16 | XMS_ITS | Encounter Summary ---
Author Organization [employer] Address [address] [facility] 7t [place] [address] Care Team Providers Care Ball Mill Mixer Name Role Phone Unavailable Primary Care Provider Unavailabl e Reason for Visit * Reason Comments Med Refill Encounter Details Date Type Department Care Team ([facility] st Contact Info) Description 01/26/2024 Refill [facility] MEDICINE [address] [place], [place] [phone] Name, MD Al 230 [place] [address] Type 2 diabetes mellitus with hyperglycemia, with long-term current use of insulin ([facility]) Social History Tobacco Use Types Packs/Day [...] hyperglycemia, with long-term current use of insulin (HCC) documented in this encounter Additional Health Concerns Assessment Noted Time PHQ-9 Depression Total Score: 16 023 9:50 AM EDT documented as of this encounter
--- OUTSIDE RECORDS SUMMARY | 2025-04-27 10:16 | XMS_ITS | Encounter Summary ---
Author Organization [employer] Address [address] [facility] 7t [place] [address] Care Team Providers Care Clothing Man Name Role Phone Unavailable Primary Care Provider Unavailabl e Reason for Visit * Reason Comments Med Refill Encounter Details Date Type Department Care Team ([facility] st Contact Info) Description 05/29/2024 Refill [facility] MEDICINE 230 [place], [place] [phone] Name, MD Al 230 [place] [address] Type 2 diabetes mellitus with hyperglycemia, with long-term current use of insulin ([facility]) Social History Tobacco Use Types [...]
--- OUTSIDE RECORDS SUMMARY | 2025-04-27 10:16 | XMS_ITS | Encounter Summary ---
Author Organization [employer] Address [address] [facility] 7t [place] [address] Care Team Providers Care Fast Food Crew Lead Name Role Phone Unavailable Primary Care Provider Unavailabl e Reason for Visit * Reason Comments Med Refill Encounter Details Date Type Department Care Team ([facility] st Contact Info) Description 01/12/2024 Refill [facility] MEDICINE 230 [place], [place] [phone] Name, MD Al [address] [place] [address] Type 2 diabetes mellitus with hyperglycemia, with long-term current use of insulin ([facility]) Social History Tobacco Use Types Packs/Day [...]
--- OUTSIDE RECORDS SUMMARY | 2025-04-27 10:16 | XMS_ITS | Encounter Summary ---
Author Organization [employer] Address [address] [facility] 7t [place] [address] Care Team Providers Care Manager Machine Name Role Phone Unavailable Primary Care Provider Unavailabl e Reason for Visit * Reason Comments Med Refill Encounter Details Date Type Department Care Team ([facility] st Contact Info) Description 04/05/2024 Refill [facility] MEDICINE 230 [place], [place] [phone] Name, MD Al 230 [place] [address] Nocturia; Essential hypertension Social History Tobacco Use [...]
--- OUTSIDE RECORDS SUMMARY | 2025-04-27 10:16 | XMS_ITS | Encounter Summary ---
Author Organization [employer] Address [address] [facility] 7t [place] [address] Care Team Providers Care Tank Tester Name Role Phone Unavailable Primary Care Provider Unavailabl e Reason for Visit * Reason Comments Med Refill Encounter Details Date Type Department Care Team ([facility] st Contact Info) Description 04/28/2024 Refill [facility] MEDICINE 230 [place], [place] [phone] Name, MD Al 230 [place], [place] [phone] Social History Tobacco Use Types Packs/Day Years [...]
--- OUTSIDE RECORDS SUMMARY | 2025-04-27 10:16 | XMS_ITS | Encounter Summary ---
Author Organization [employer] Address [address] [place] [address] 7t [place] [address] Care Team Providers Care Scabbler Name Role Phone Name, Al EM[place] Primary Care Provider [phone] Encounter Details Date Type Department Care Team ([facility] st Contact Info) Description 12/31/2022 Abstract Secret Recipe Information Management 230 [place], [place] [phone] Name, MD Al 230 [place], [place] [phone] Social History Tobacco Use Types Packs/Day Years [...] documented as of this encounter Care Teams Scabbler Relationship Specialty Start Date End Date Name, MD Al 230 [place] [address] PCP - General Family Medicine 06/27/19 11/09/23 documented as of this encounter
--- OUTSIDE RECORDS SUMMARY | 2025-04-27 10:16 | XMS_ITS | Encounter Summary ---
Author Organization [employer] Address [address] [facility] 7t [place] [address] Care Team Providers Care Tool Carrier Name Role Phone Unavailable Primary Care Provider Unavailabl e Reason for Visit * Reason Comments Med Refill Encounter Details Date Type Department Care Team ([facility] st Contact Info) Description 03/07/2024 Refill [facility] MEDICINE 230 [place], [place] [phone] Name, MD Al 230 [place], [place] [phone] Essential hypertension Social History Tobacco Use Types [...] Result Component 8.6( 10:06 AM EDT) No Odliia Carrasco, Kiko Note: Achieve A1c goal of <7.5% in the next three months documented as of this encounter Visit Diagnoses Diagnosis Essential hypertension Unspecified essential hypertension documented in this encounter Additional Health Concerns Assessment Noted Time PHQ-9 Depression Total Score: 16 023 9:50 AM EDT documented as of this encounter
--- OUTSIDE RECORDS SUMMARY | 2025-04-27 10:16 | XMS_ITS | Encounter Summary ---
Author Organization [employer] Address [address] [facility] 7 [place] [address] Care Team Providers Care Reel Cutter Name Role Phone Unavailable Primary Care Provider Unavailabl e Reason for Visit * Reason Onset Date Comments Prior Authorization 02/04/2024 Encounter Details Date Type Department Care Team ([facility] st Contact Info) Description 02/04/2024 Telephone [facility] MEDICINE 230 [place], [place] [phone] Name, MD Al 230 [place] [address] Prior Authorization Social History Tobacco Use Types [...] - 02/05/2024 1:48 PM EDT T/C to [facility] pharmacy for CGM PA. Pt. Was prescribe CGM last time in 12/2022. Pt. Is asking for CGM sensor, when called to [facility] pharmacy , pharmacy states CGM rx came from Dr. Carolina Cho MD( [facility] ). RN try to call pt. Through [employer] interpreters id - [id number] To gather more information for CGM and tomake sure if pt. Is seeing another PCP at another office, pt. Has to sign the form at [facility], so [facility] can inactivate pt.'s chart. No answer. Not able to LVM. RN also called on [phone] Carolina Cho MD office, not able to speak with staff of Carolina Cho MD. Staff Nurse [employer] Team ask to give details to send message [...]
--- OUTSIDE RECORDS SUMMARY | 2025-04-27 10:16 | XMS_ITS | Encounter Summary ---
Author Organization [employer] Address [address] [facility] 7t [place] [address] Care Team Providers Care Cd Technician Name Role Phone Unavailable Primary Care Provider Unavailabl e Reason for Visit * Reason Comments Med Refill Encounter Details Date Type Department Care Team ([facility] st Contact Info) Description 01/28/2024 Refill [facility] MEDICINE 230 [place], [place] [phone] Name, MD Al 230 [place], [place] [phone] Social History Tobacco Use Types Packs/Day Years [...]
--- OUTSIDE RECORDS SUMMARY | 2025-04-27 10:16 | XMS_ITS | Encounter Summary ---
Author Organization [employer] Address [address] [facility] 7t [place] [address] Care Team Providers Care Supervisor Pipeline Name Role Phone Unavailable Primary Care Provider Unavailabl e Reason for Visit * Reason Comments Med Refill Encounter Details Date Type Department Care Team ([facility] st Contact Info) Description 02/05/2024 Refill [facility] MEDICINE 230 [place], [place] [phone] Name, MD Al 230 [place] [address] Type 2 diabetes mellitus with hyperglycemia, with long-term current use of insulin ([facility]) Social History Tobacco Use [...]
--- OUTSIDE RECORDS SUMMARY | 2025-04-27 10:16 | XMS_ITS | Encounter Summary ---
Author Organization [employer] Address [address] [facility] 7t [place] [address] Care Team Providers Care Ply Splicer Name Role Phone Unavailable Primary Care Provider Unavailabl e Reason for Visit * Reason Comments Med Refill Encounter Details Date Type Department Care Team ([facility] st Contact Info) Description 06/10/2024 Refill [facility] MEDICINE 230 [place], [place] [phone] Name, MD Al 230 [place] [address] Type 2 diabetes mellitus with hyperglycemia, with long-term current use of insulin ([facility]); Essential hypertension Social History Tobacco Use [...] with long-term current use of insulin (HCC) Essential hypertension Unspecified essential hypertension documented in this encounter Additional Health Concerns Assessment Noted Time PHQ-9 Depression Total Score: 16 023 9:50 AM EDT documented as of this encounter
--- OUTSIDE RECORDS SUMMARY | 2025-04-27 10:16 | XMS_ITS | Encounter Summary ---
Author Organization [employer] Address [address] [facility] 7t [place] [address] Care Team Providers Care Chain Builder Loom Control Name Role Phone Unavailable Primary Care Provider Unavailabl e Reason for Visit * Reason Comments Med Refill Encounter Details Date Type Department Care Team ([facility] st Contact Info) Description 01/21/2024 Refill [facility] MEDICINE 230 [place], [place] [phone] Name, MD Al 230 [place] [address] Type 2 diabetes mellitus with hyperglycemia, with long-term current use of insulin ([facility]) Social History Tobacco Use Types Packs/Day Years [...]
--- OUTSIDE RECORDS SUMMARY | 2025-04-27 10:16 | XMS_ITS | Encounter Summary ---
Author Organization [employer] Address [address] [facility] 7t [place] [address] Care Team Providers Care Solar Process Engineer Name Role Phone Unavailable Primary Care Provider Unavailabl e Reason for Visit * Reason Comments Med Refill Encounter Details Date Type Department Care Team ([facility] st Contact Info) Description 03/30/2024 Refill [facility] MEDICINE 230 [place], [place] [phone] Name, MD Al 230 [place], [place] [phone] Essential hypertension; Nocturia Social History Tobacco Use [...]
--- OUTSIDE RECORDS SUMMARY | 2025-04-27 10:16 | XMS_ITS | Encounter Summary ---
Author Organization [employer] Address [address] [facility] 7t [place] [address] Care Team Providers Care Insurance Assistant Name Role Phone Unavailable Primary Care Provider Unavailabl e Reason for Visit * Reason Comments Med Refill Encounter Details Date Type Department Care Team ([facility] st Contact Info) Description 04/11/2024 Refill [facility] MEDICINE 230 [place], [place] [phone] Name, MD Al 230 [place], [place] [phone] Essential hypertension Social History Tobacco Use Types [...]
--- OUTSIDE RECORDS SUMMARY | 2025-04-27 10:16 | XMS_ITS | Encounter Summary ---
Author Organization [employer] Address [address] [facility] 7t [place] [address] Care Team Providers Care Mechanical Service Specialist Name Role Phone Unavailable Primary Care Provider Unavailabl e Reason for Visit * Reason Comments Med Refill Encounter Details Date Type Department Care Team ([facility] st Contact Info) Description 01/05/2024 Refill [facility] 230 [place] [address] Merle Irwin MD [address] [place], [place] [phone] Social History Tobacco Use Types Packs/Day Years [...]
--- OUTSIDE RECORDS SUMMARY | 2025-04-27 10:16 | XMS_ITS | Encounter Summary ---
Author Organization [employer] Address [address] [facility] 7t [place] [address] Care Team Providers Care Hybrid Technologist Name Role Phone Unavailable Primary Care Provider Unavailabl e Reason for Visit * Reason Comments Med Refill Encounter Details Date Type Department Care Team ([facility] st Contact Info) Description 03/03/2024 Refill [facility] MEDICINE 230 [place], [place] [phone] Name, MD Al 230 [place], [place] [phone] Depressive disorder Social History Tobacco Use Types [...]
--- OUTSIDE RECORDS SUMMARY | 2025-04-27 10:16 | XMS_ITS | Encounter Summary ---
Author Organization [employer] Address [address] [place] [address] 7t [place] [address] Care Team Providers Care Acute Care Physician Name Role Phone Name, Al EMERSON Primary Care Provider [phone] Encounter Details Date Type Department Care Team (Late st Contact Info) Description 01/05/2023 Abstract [facility] MEDICINE 230 [place], [place] [phone] Name, MD Al 230 [place], [place] [phone] Social History Tobacco Use Types Packs/Day Years [...] documented as of this encounter Care Teams Acute Care Physician Relationship Specialty Start Date End Date Name, MD Al 230 [place] [address] PCP - General Family Medicine 06/27/19 11/09/23 documented as of this encounter
--- OUTSIDE RECORDS SUMMARY | 2025-04-27 10:16 | XMS_ITS | Encounter Summary ---
Author Organization [employer] Address [address] [facility] 7t [place] [address] Care Team Providers Care Director Of Pediatric Rehabilitation Name Role Phone Unavailable Primary Care Provider Unavailabl e Reason for Visit * Reason Comments Med Refill Encounter Details Date Type Department Care Team ([facility] st Contact Info) Description 05/31/2024 Refill [facility] MEDICINE 230 [place], [place] [phone] Name, MD Al 230 [place], [place] [phone] Type 2 diabetes mellitus with hyperglycemia ([facility]) Social History Tobacco Use Types [...] Diagnosis Type 2 diabetes mellitus with hyperglycemia (HCC) documented in this encounter Additional Health Concerns Assessment Noted Time PHQ-9 Depression Total Score: 16 023 9:50 AM EDT documented as of this encounter
--- OUTSIDE RECORDS SUMMARY | 2025-04-27 10:17 | XMS_ITS | Encounter Summary ---
Author Organization [employer] Address [address] [facility] 7t [place] [address] Care Team Providers Care Load Tester Name Role Phone Name, Al EMERSON Primary Care Provider [phone] Reason for Visit * Reason Comments Med Refill Encounter Details Date Type Department Care Team ([facility] st Contact Info) Description 06/15/2023 Refill [facility] MEDICINE 230 [place] [address] Name, MD Al 230 [place], [place] [phone] Social History Tobacco Use Types Packs/Day Years [...] documented as of this encounter Care Teams Load Tester Relationship Specialty Start Date End Date Name, MD Al [address] [place] [address] PCP - General Family Medicine 06/27/19 11/09/23 documented as of this encounter
--- OUTSIDE RECORDS SUMMARY | 2025-04-27 10:17 | XMS_ITS | Encounter Summary ---
Author Organization [employer] Address [address] [facility] 7t [place] [address] Care Team Providers Care Coding Team Lead Name Role Phone Unavailable Primary Care Provider Unavailabl e Reason for Visit * Reason Comments Med Refill Encounter Details Date Type Department Care Team ([facility] st Contact Info) Description 07/25/[address] [facility] MEDICINE 230 [place], [place] [phone] Name, MD Al 230 [place], [place] [phone] Type 2 diabetes mellitus with hyperglycemia ([facility]) Social History Tobacco Use Types [...]
--- OUTSIDE RECORDS SUMMARY | 2025-04-27 10:17 | XMS_ITS | Encounter Summary ---
Author Organization [employer] Address [address] [facility] 7t [place] [address] Care Team Providers Care Vegetable Farmworker Name Role Phone Name, Al EMERSON Primary Care Provider [phone] Odilia Carrasco PharmD Unavailable [phone] Encounter Details Date Type Department Care Team (Late st Contact Info) Description 12/25/2022 Orders Only [facility] [address] [place], [place] [phone] Mohsen Becker MD [address] [place], [place] [phone] Social History Tobacco Use Types Packs/Day Years [...] documented as of this encounter Care Teams Vegetable Farmworker Relationship Specialty Start Date End Date Name, MD Al [address] [place] [address] PCP - General Family Medicine 06/27/19 11/09/23 Odilia Carrasco PharmD [address] [place] [address] Pharmacist Internal Medicine 05/27/22 12/28/22 documented as of this encounter
--- OUTSIDE RECORDS SUMMARY | 2025-04-27 10:17 | XMS_ITS | Encounter Summary ---
Author Organization [employer] Address [address] [facility] 7t [place] [address] Care Team Providers Care Antenna Rigger Name Role Phone Unavailable Primary Care Provider Unavailabl e Reason for Visit * Reason Comments Med Refill Encounter Details Date Type Department Care Team ([facility] st Contact Info) Description 06/16/[address] [facility] 230 [place], [place] [phone] Name, MD Al 230 [place], [place] [phone] Social History Tobacco Use Types Packs/Day Years [...]
--- OUTSIDE RECORDS SUMMARY | 2025-04-27 10:17 | XMS_ITS | Encounter Summary ---
Author Organization [employer] Address [address] [place] [address] 7 [place] [address] Care Team Providers Care Grain Broker Name Role Phone Name, Al EMERSON Primary Care Provider [phone] Reason for Visit * Reason Onset Date Comments reuqesting call 02/04/2023 Encounter Details Date Type Department Care Team ([facility] st Contact Info) Description 02/04/2023 Telephone [facility] MED[facility]INE 230 [place], [place] [phone] Name, MD Al 230 [place] [address] reuqesting call Social History Tobacco Use Types [...] for VNA services. Please contact marge at [phone] Fax number: [phone] documented in this encounter Plan of Treatment [...] documented as of this encounter Care Teams Grain Broker Relationship Specialty Start Date End Date Name, MD Al 230 [place] [address] PCP - General Family Medicine 06/27/19 11/09/23 documented as of this encounter
--- OUTSIDE RECORDS SUMMARY | 2025-04-27 10:17 | XMS_ITS | Encounter Summary ---
Author Organization [employer] Address [address] [facility] 7t [place] [address] Care Team Providers Care Automation Clerk Name Role Phone Unavailable Primary Care Provider Unavailabl e Reason for Visit * Reason Comments Med Refill Encounter Details Date Type Department Care Team ([facility] st Contact Info) Description 06/14/2024 Refill [facility] 230 [place] [address] Merle Irwin MD [address] [place], [place] [phone] Social History Tobacco Use Types Packs/Day Years [...]
--- OUTSIDE RECORDS SUMMARY | 2025-04-27 10:17 | XMS_ITS | Patient Health Record ---
Author Organization [facility] [place] Address [address] [place] [address] Care Team Providers Care Occupational Medicine Physician Name Role Phone Nury Summers Primary Care Provider UnavailVj Jay Unavailable [phone] Soledad EMERSON, [place] Unavailable Unavailable Allergies No [...] Problem Acquired hammer toe of right foot (800625361639682 5) Other hammer toe(s) (acquired), right foot (M20.41) Active confirmed Problem Acquired hammer toe of left foot (063683897173965 3) Other hammer toe(s) (acquired), left foot (M20.42) Active confirmed Problem Type II diabetes mellitus without complication (995274417) Type 2 diabetes mellitus without complication (E11.9) Active confirmed Vital Signs Height 5ft in 12/12/2024 Weight 167 lbs 12/12/2024 BMI 32.61 kg/m2 12/12/2024 Procedures Procedure Date Ordered Date Performed Result Body Sit e [id number]-[id number] NAIL, 6 OR MORE 12/12/2024 N/A Encounters Encounter Location Date Provider Diagnosis [facility] [address] [address] 12/12/2024 Vj Ayala Pain in right toe(s) M79.674 ; Tinea unguium B35.1 ; Pain in left toe(s) M79.675 ; Type 2 diabetes mellitus without complication E11.9 ; Other hammer toe(s) (acquired), right foot M20.41 and Other hammer toe(s) (acquired), left foot M20.[facility] [address] 06/09/2024 [facility] [address] 09/19/2024 Vj Ayala Assessments Encounter Date Diagnosis [...] Treatment Pending Test Test Name Order Date [id number] NAIL, 6 OR MORE 12/12/2024 Insurance Providers Payer Name Payer Address Payer Phone Subscriber Number Group Number Insured Name Patient Relationship to Insured Coverage Start Date Coverage End Date [facility] [address] [address] [place] [address] [id number] Basim Saini Self - patient is the insured Medical (General) History Medical History History ICD Code Chicken pox Diabetes mellitus Reflux Hypercholesterolemia Surgical History Surgery Date(Month/Year) cataract surgery 2014
--- OUTSIDE RECORDS SUMMARY | 2025-04-27 10:17 | XMS_ITS | Encounter Summary ---
Author Organization [employer] Address [address] [facility] 7t [place] [address] Care Team Providers Care Hotel Room Attendant Name Role Phone Unavailable Primary Care Provider Unavailabl e Reason for Visit * Reason Comments Med Refill Encounter Details Date Type Department Care Team ([facility] st Contact Info) Description 06/14/2024 Refill [facility] 230 [place], [place] [phone] Name, MD Al 230 [place], [place] [phone] Type 2 diabetes mellitus with hyperglycemia ([facility]) Social History Tobacco Use Types [...]
--- OUTSIDE RECORDS SUMMARY | 2025-04-27 10:17 | XMS_ITS | Encounter Summary ---
Author Organization [employer] Address [address] [facility] 7t [place] [address] Care Team Providers Care Metal Plater Name Role Phone Unavailable Primary Care Provider Unavailabl e Reason for Visit * Reason Comments Med Refill Encounter Details Date Type Department Care Team ([facility] st Contact Info) Description 12/07/2023 Refill [facility] 230 [place], [place] [phone] Name, MD Al 230 [place], [place] [phone] Social History Tobacco Use Types Packs/Day Years [...]
--- OUTSIDE RECORDS SUMMARY | 2025-04-27 10:17 | XMS_ITS | Encounter Summary ---
Author Organization [employer] Address [address] [facility] 7t [place] [address] Care Team Providers Care Software Architect Name Role Phone Unavailable Primary Care Provider Unavailabl e Reason for Visit * Reason Comments Med Refill Encounter Details Date Type Department Care Team ([facility] st Contact Info) Description 06/13/2024 Refill [facility] MED[facility]INE 230 [place], [place] [phone] Name, MD Al 230 [place] [address] Essential hypertension; Type 2 diabetes mellitus with hyperglycemia, with long-term current use of insulin ([facility]) Social History Tobacco Use Types [...]
--- OUTSIDE RECORDS SUMMARY | 2025-04-27 10:17 | XMS_ITS | Clinical Summary ---
Author Organization [employer] Address [address] [place] [address] 7t [place] [address] Care Team Providers Care Vegetable Thinner Name Role Phone Unavailable Primary Care Provider [...] 11 12/11/19 23 Active Continuous Blood Gluc Sales Effectiveness Manager (FreeStyle Júnior 2 [place]) deviceIndication s:Type 2 diabetes mellitus with hyperglycemia, with long-term current use of insulin (HCC) Use as directed to scan sensor at least every 8 hours for CGM 1 each 12/28/19 23 Active Continuous Blood Gluc Sensor (FreeStyle Júnior 2 Sensor) miscIndications: Type 2 diabetes mellitus with hyperglycemia, with long-term current use of insulin (HCC) Apply 1 sensor, as directed, every 14 [...] 06/15/20 23 Active Lancets (OneTouch Delica Plus Waaxst63P) [facility] TEST BLOOD SUGAR 3 TIMES A DAY [...] with long-term current use of insulin (HCC) TAKE 1 TABLET BY MOUTH EVERY MORNING [...] your housing situation today? I have kendal kobe 05/13/[address] you li [...] hyperglycemia, with long-term current use of insulin ([facility]) ALBUMIN, RANDOM URINE W/CREATININE Routine 04/23/2021 10:05 AM EDT HM COLONOSCOPY Routine 01/05/2015 1:42 PM EDT from Last 3 Months or Most Recently Relevant to Health Maintenance Results * Lipid Panel, Standard (01/05/2023 9:42 AM EDT) Cholesterol, Total 114 <200 mg/dL [facility] HDL Cholesterol 44 > OR = 40 mg/dL [facility] Triglycerides 96 <150 mg/dL [facility] LDL Cholesterol 52 mg/dL (calc) [facility] Comment: Reference range: <100 Desirable range <100 mg/dL for primary prevention; <70 mg/dL for patients with CHD or diabetic patients with > or = 2 CHD risk factors. LDL-C is now calculated using the Alife-Alfred calculation, which is a validated novel method providing better accuracy than the Friedewald equation in the estimation of LDL-C. Alfie SIMMONS et al. WILDA. 2013;310(19): 7829-1885 (http://education.Jobfox.RingCredible/faq/GSN676) Chol/HDLC Ratio 2.6 <5.0 (calc) [facility] Non-HDL Cholesterol 70 <130 mg/dL (calc) [facility] Comment: For patients with diabetes plus 1 [...] MD LAB BLOOD ORDERABLES Final Resul t [address], [place] [address] [facility] [address] [place] [address] * (ABNORMAL) POCT A1C (12/24/2022 10:06 AM [...] t [facility] [address] * Hm Colonoscopy (01/05/2015 1:42 PM EDT) Colonoscopy Normal Normal Narrative Teresita Ricci - 01/05/2015 1:42 PM EDT Recommended 5 year follow up us Historical Provider HEALTH MAINTENANCE Final Result from Last 3 Months or Most Recently Relevant to Health Maintenance Insurance [id number] [employer] STAND[employer]
--- OUTSIDE RECORDS SUMMARY | 2025-04-27 10:17 | XMS_ITS | Patient Health Record ---
Author Organization [employer] [facility] Address [address] [place] [address] Care Team Providers Care Karate Teacher Name Role Phone Pam Yuan Primary Care Provider Raul Tillman [phone] Reason For Referral No Information Medications Medication [...] Status Risk Notes Problem Colon cancer screening (425730632) Colon cancer screening (V76.51) Active confirmed Problem History of adenomatous polyp of colon (371737361) History of adenomatous polyp of colon (V12.72) Active confirmed Problem Long-term use of aspirin therapy (V58.66) Active confirmed Plan Of Treatment Future Test Test Name Order Date COLONOSCOPY 11/07/2014 Insurance Providers Payer Name Payer Address Payer Phone Subscriber Number Group Number Insured Name Patient Relationship to Insured Coverage Start Date Coverage End Date [facility] [address] [place] [address] [id number] DENISSE LEVY Self - patient is the insured Medical (General) History Medical History History ICD Code Screening colonoscopy 12-5-2 008--2 tubular adenomas removed--he was also noted to have a moderate amount of sigmoid diverticulosis and internal hemorrhoids IDDM HTN Elevated cholesterol Denies IN,CVA,renal disease Asthma Surgical History Surgery Date(Month/Year) Right knee arthroscopy
--- OUTSIDE RECORDS SUMMARY | 2025-04-27 10:17 | XMS_ITS | Encounter Summary ---
Author Organization [employer] Address [address] [facility] 7t [place] [address] Care Team Providers Care Tier Lift Operator Name Role Phone Unavailable Primary Care Provider Unavailabl e Reason for Visit * Reason Comments Med Refill Encounter Details Date Type Department Care Team ([facility] st Contact Info) Description 11/29/2023 Refill [facility] MED[facility]INE 230 [place], [place] [phone] Name, MD Al 230 [place] [address] Type 2 diabetes mellitus with hyperglycemia, with long-term current use of insulin ([facility]) Social History Tobacco Use Types Packs/Day [...]
--- OUTSIDE RECORDS SUMMARY | 2025-04-27 10:17 | XMS_ITS | Encounter Summary ---
Author Organization [employer] Address [address] [place] [address] 7t [place] [address] Care Team Providers Care Spinneret Person Name Role Phone Name, Al EMERSON Primary Care Provider [phone] Reason for Visit * Reason Comments Med Refill Encounter Details Date Type Department Care Team ([facility] st Contact Info) Description 03/05/2023 Refill [facility] MEDICINE 230 [place], [place] [phone] Name, MD Al [address] [place], [place] [phone] Essential hypertension Social History Tobacco Use Types [...] documented as of this encounter Care Teams Spinneret Person Relationship Specialty Start Date End Date Name, MD Al [address] [place] [address] PCP - General Family Medicine 06/27/19 11/09/23 documented as of this encounter
== END 2025-04-27 10:27 | disposition home or self-care (01) ==
LOC: HO.ENCR 09:20
PROVIDERS: PCP Internal Medicine; Visit Provider Student in an Organized Health Care Education/Training Program
DX: E11.65 Type 2 diabetes mellitus with hyperglycemia (principal); Z79.4 Long term (current) use of insulin; Z55.0 Illiteracy and low-level literacy
CPT/HCPCS: 99205; G2211

== ENCOUNTER → 2025-04-27 09:19 | Outpatient (BNVA) | payer OTHER, SELFPAY | PROVIDERS: PCP Internal Medicine; Visit Provider Student in an Organized Health Care Education/Training Program | DX: E11.65 Type 2 diabetes mellitus with hyperglycemia (principal); Z79.4 Long term (current) use of insulin; Z79.85 Long-term (current) use of injectable non-insulin antidiabetic drugs; Z55.0 Illiteracy and low-level literacy | CPT/HCPCS: 82947; 99202 ==

== ENCOUNTER 2025-05-03 10:42 | Outpatient (REF) | payer OTHER, SELFPAY ==
--- NOTE | ~2025-05-03 | CT_ITS ---
CLINICAL HISTORY: R31.0 - Gross hematuria CT abdomen and pelvis with and without contrast Comparison: None provided Findings: The lung bases are clear. There is no urinary calculus or obstructive uropathy. No suspicious renal lesion. 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 There is fullness of the left ureter with questionable very subtle soft tissue of the ureterovesicular junction limited based on diffuse bladder wall thickening and trabeculation. TURP defect within the prostate which is enlarged. Normal appendix. No bowel obstruction or free air. The liver is mildly low in attenuation. The gallbladder, spleen, adrenal glands and pancreas are unremarkable. No acute osseous finding. Impression: There is mild fullness of the left ureter with questionable soft tissue related narrowing at the left ureterovesicular junction. Given diffuse irregular bladder wall thickening and trabeculation, this is nonspecific however direct visualization of this region may be warranted given the history. Additional incidental findings. This document has been electronically signed by: Piter Francis MD on 05/04/2025 12:13:07
[2025-05-03 11:38] LABS: Blood Urea Nitrogen 14 mg/dL (9-16); Estimated Glomerular Filt Rate > 60
[2025-05-03 12:06] LABS: Prostate Specific Antigen 2.43 ng/mL (<0.05-4.0)
[2025-05-03] MEDS: iohexoL 350 MG/ML 100 ML INFUS..BTL 85 ML IV (12:59)
== END 2025-05-03 10:43 | disposition home or self-care (01) ==
LOC: HO.CT 10:42
PROVIDERS: PCP Internal Medicine; Visit Provider Nurse Practitioner Family
DX: R31.0 Gross hematuria (principal); R39.15 Urgency of urination; N39.43 Post-void dribbling; Z12.5 Encounter for screening for malignant neoplasm of prostate
CPT/HCPCS: 36415; 74178; 82565; 84153; 84520; Q9967

== ENCOUNTER → 2025-05-03 10:45 | Outpatient (BNV) | payer OTHER, SELFPAY | PROVIDERS: PCP Internal Medicine; Visit Provider Radiology Vascular & Interventional Radiology | DX: R31.0 Gross hematuria (principal) | CPT/HCPCS: 74178 ==